=== PATIENT | male | born 1935 | race Caucasian/White ===

== ENCOUNTER → 2019-02-17 07:38 | Outpatient (CLI) | payer MEDICARE, OTHER, SELFPAY ==
--- NOTE | 2019-02-17 | DI.MRI.S_ITS ---
PROCEDURE: MR ABDOMEN WO/W CON INDICATIONS: Cyst or partial solid mass top left kidney TECHNIQUE: Coronal HASTE through abdomen and pelvis; axial 2D FLASH in- and [id number] (with and without fat saturation), and breath-hold T2 FSE from the hepatic dome to the bottom of the kidneys. Coronal HASTE MR urogram of kidneys and bladder. Dynamic coronal VIBE during IV gadolinium administration; postgadolinium axial VIBE or 2D FLASH with fat saturation from the hepatic dome through the kidneys. COMPARISON: None. FINDINGS: Image quality: Excellent. Genitourinary system: Bilateral hydronephrosis and hydroureter extending below the imaging margin into the pelvis. Note is made of a exophytic simple cyst at the upper anterolateral renal cortical border, measuring up to 2.9 cm in maximal dimension. Other solid organs: Normal. Nodes and vessels: No abnormality seen. Bowel and peritoneum: Normal. Lung bases: Normal. Bones and soft tissues: Normal. IMPRESSION: The 2.9 cm diameter cyst exophytic from the upper outer left renal cortical border is simple. No followup recommended. Bilateral hydronephrosis and hydroureter is present in this patient, etiology uncertain. The imaging field of view terminates at the abdomen/pelvis region, and hydroureter extends below into the pelvis. The clinical history appears to imply that additional imaging from elsewhere may be available for review. No comparison imaging is available that includes the area of current clinical concern. If possible please obtain comparison studies for additional review. If not available then additional assessment for cause of bilateral hydronephrosis and hydroureter is recommended. It Dictated by: Kiran Steve M.D. on 02/17/2019 at 13:03 Approved by: Kiran Steve M.D. on 02/17/2019 at 13:07
== END ==
PROVIDERS: Family Provider Specialist; Visit Provider Internal Medicine
DX: N28.1 Cyst of kidney, acquired (principal); N13.30 Unspecified hydronephrosis; N13.4 Hydroureter
CPT/HCPCS: 74183; A9579

== ENCOUNTER → 2019-03-12 11:51 | Outpatient (CLI) | payer MEDICARE, OTHER, SELFPAY ==
[2019-03-12 13:06] LABS: Estimated Glomerular Filt Rate 44.9 mL/min (>60)
== END ==
PROVIDERS: Family Provider Specialist; PCP Internal Medicine; Visit Provider Student in an Organized Health Care Education/Training Program
DX: Z13.220 Encounter for screening for lipoid disorders (principal); R11.2 Nausea with vomiting, unspecified; R19.4 Change in bowel habit; D72.820 Lymphocytosis (symptomatic)
CPT/HCPCS: 36415; 82565

== ENCOUNTER → 2019-03-13 12:01 | Outpatient (CLI) | payer MEDICARE, OTHER, SELFPAY ==
--- NOTE | 2019-03-13 | DI.CT.S_ITS ---
PROCEDURE: CT ABDOMEN PELVIS W CON INDICATIONS: change in bowel habits TECHNIQUE: After the administration of oral and intravenous contrast, 5 mm thick sections acquired from the diaphragms to the symphysis. 5 mm thick coronal and sagittal reformats were performed. For radiation dose reduction, the following was used: automated exposure control, adjustment of mA and/or kV according to patient size. COMPARISON: [facility], MR, MR ABDOMEN WO/W CON, 02/17/2019, 8:07. FINDINGS: Image quality: Excellent. ABDOMEN: Lung bases: Lung bases are clear. Heart size is normal. Solid organs: There is diffuse hepatic steatosis. Gallbladder demonstrates an 8mm calcification in the cystic duct/gallbladder neck. Biliary system is non-dilated. Pancreas enhances normally. Spleen is normal in size and enhancement. No adrenal nodules. There is an 8mm nonobstructing nephrolith within the inferior pole of the right kidney. There is redemonstration of a 2.9 cm oval circumscribed hypoattenuating exophytic cyst arising from the anterior left kidney as seen on comparison MRI of 02/17/19, which demonstrates attenuation characteristics measuring 30 Hounsfield units (which may represent a proteinaceous cyst). There is moderate bilateral hydronephrosis with tortuosity of the descending ureters bilaterally. Areas of hypoenhancement of the bilateral renal parenchyma are identified bilaterally. Peritoneum and bowel: The appendix cannot be definitively identified on this exam, but there are no convincing pericecal findings suggestive of acute appendicitis. Nodes and vessels: No retroperitoneal or mesenteric adenopathy. Aorta and inferior vena cava are normal in caliber. Moderate calcified and noncalcified plaque of the abdominal aorta and branch vessels. Miscellaneous: There is a subcentimeter fat-containing umbilical hernia. PELVIS: Genitourinary: There is diffuse thickening of the lateral wall which is worst along the right posterolateral bladder at the ureterovesicular junction. There is a difficult to measure approximately 3.3 cm anteroposterior by 2.5 cm transverse by 3.8 cm craniocaudal enhancing soft tissue mass with punctate calcification at the posterior right ureterovesicular junction resulting in ureteral obstruction and proximal hydroureteronephrosis. This soft tissue mass appears to extend through the bladder wall. The prostate is markedly enlarged measuring 5.7 cm transverse by 4.4 cm anteroposterior by 6.8 cm craniocaudal with multiple areas of internal enhancement (such as a 1.8 cm lesion in the anterior left inferior prostate on axial image 77 of series 2). The bilateral seminal vesicles are enlarged and tortuous with areas of heterogeneous enhancement. There appears to be involvement of the bladder trigone. There is both circumferential and eccentic mass-like wall thickening of the anus and rectum with up to 1.8 cm with up to approximately 2.0 cm of eccentric rectal wall thickening; there are areas of asymmetric contrast enhancement of the rectal wall (example image 72 of series 2). This masslike wall thickening encompasses much of the presacral space with effacement of fat planes. Miscellaneous: There are minimal fat-containing bilateral indirect inguinal hernias. Bones: Mild to moderate multilevel degenerative changes of the thoracolumbar spine. IMPRESSION: 1. 3.3 cm enhancing obstructive mass at the right ureterovesicular junction with bilateral hydroureteronephrosis, highly concerning for bladder malignancy versus metastatic disease. Diffuse bladder wall thickening which may be secondary to infiltrative malignancy versus chronic bladder outlet obstruction. Areas of hypoenhancement of the bilateral renal parenchyma may be due to pyelonephritis versus impaired vascularity secondary to hydronephrosis. 2. 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 3. Severe mass-like wall thickening of the rectum and anus with areas of asymmetric contrast-enhancing wall thickening suspicious for malignancy, possibly metastatic. 4. Nonobstructive nephrolithiasis. Findings discussed with referring provider Dr. Ashley Potts of [facility] by telephone by Dr. Montenegro at approximately 4:30 PM and again at approximately 4:50 PM on 03/13/2019. Findings discussed with referring provider Dr. Gurdeep Khan of [facility] by telephone by Dr. Montenegro at approximately 4:40pm on 03/13/2019. Dictated by: Jin Montenegro M.D. on 03/13/2019 at 15:59 Approved by: Jin Montenegro M.D. on 03/13/2019 at 16:59
== END ==
PROVIDERS: Family Provider Specialist; PCP Internal Medicine; Visit Provider Student in an Organized Health Care Education/Training Program
DX: R19.4 Change in bowel habit (principal); R11.2 Nausea with vomiting, unspecified; N28.9 Disorder of kidney and ureter, unspecified; N13.30 Unspecified hydronephrosis; N20.0 Calculus of kidney; K76.0 Fatty (change of) liver, not elsewhere classified; K42.9 Umbilical hernia without obstruction or gangrene; N40.0 Benign prostatic hyperplasia without lower urinary tract symptoms
CPT/HCPCS: 74177; Q9967

== ENCOUNTER → 2019-03-17 15:15 | Outpatient (CLI) | payer MEDICARE, OTHER, SELFPAY ==
[2019-03-17 18:17] LABS: Add Manual Diff / Slide Review NO; Basophils Absolute Auto 0 /uL (0-100); Basophils Percent Auto 0.8 % (0-2); Eosinophils Absolute Auto 100 /uL (0-450); Eosinophils Percent Auto 2.2 % (2-4); Hematocrit 31.8 % (41-53); Hemoglobin 10.8 g/dL (13.5-17.5); Lymphocytes Absolute Auto 800 /uL (1100-4500); Lymphocytes Percent Auto 14.2 % (25-40); Mean Corpuscular HGB Conc 34.1 % (30-36); Mean Corpuscular Hemoglobin 31.7 PG (26-34); Mean Corpuscular Volume 92.8 fL (80-100); Monocytes Absolute Auto 500 /uL (0-900); Monocytes Percent Auto 8.9 % (3-14); Neutrophils Absolute Auto 4100 /uL (1500-7000); Neutrophils Percent Auto 73.9 % (50-75); Platelet Count 268 X10^3/uL (150-400); Red Blood Cell Count 3.43 X10^6/uL (4.5-5.9); Red Cell Distribution Width 13.7 % (11.6-14.8); White Blood Cell Count 5.6 X10^3/uL (4.5-11.0)
[2019-03-17 18:56] LABS: Alanine Aminotransferase 13 IU/L (<50); Albumin 4.2 g/dL (3.5-5.0); Albumin Globulin Ratio 1.7 (1.0-2.8); Alkaline Phosphatase 66 U/L (38-126); Aspartate Aminotransferase 23 IU/L (17-59); BUN Creatinine Ratio 18.1 (6-22); Bilirubin Total 0.6 mg/dL (0.2-1.3); Blood Urea Nitrogen 29 mg/dL (9-20); Calcium 9.6 mg/dL (8.4-10.2); Carbon Dioxide 30 mmol/L (22-32); Chloride 97 mmol/L (98-107); Estimated Glomerular Filt Rate 41.7 mL/min (>60); Globulin 2.5 g/dL (1.7-4.1); Glucose 96 mg/dL (80-110); Potassium 4.4 mmol/L (3.4-5.1); Sodium 136 mmol/L (137-145); Total Protein 6.7 g/dL (6.3-8.2)
[2019-03-17 19:13] LABS: HEMOLYSIS < 15 (0-50)
== END ==
PROVIDERS: Family Provider Specialist; PCP Internal Medicine; Visit Provider Student in an Organized Health Care Education/Training Program
DX: R11.2 Nausea with vomiting, unspecified (principal); R19.4 Change in bowel habit; D72.820 Lymphocytosis (symptomatic); Z13.220 Encounter for screening for lipoid disorders; R93.3 Abnormal findings on diagnostic imaging of other parts of digestive tract; D64.9 Anemia, unspecified
CPT/HCPCS: 36415; 80053; 85025

== ENCOUNTER → 2019-03-23 07:42 | Outpatient (CLI) | payer MEDICARE, OTHER, SELFPAY ==
--- NOTE | 2019-03-23 | DI.MRI.S_ITS ---
PROCEDURE: MR PELIS WO/W CON INDICATIONS: Malignant neoplasm of rectum TECHNIQUE: Coronal HASTE, sagittal T2 FSE, axial T1 FSE, axial and coronal nonbreath-hold T2 FSE. Axial dynamic VIBE during administration of contrast. Post-contrast axial and coronal VIBE/2-D FLASH with fat saturation from the iliac crests to the symphysis. Optional diffusion weighted imaging and ADC may be performed. COMPARISON: [facility], MR, MR ABDOMEN WO/W CON, 02/17/2019, 8:07. [facility], CT, CT ABDOMEN PELVIS W CON, 03/13/2019, 12:57. FINDINGS: Image quality: Diagnostic with motion artifact Rectum: Morphology: Circumferential. Clock face of tumor involvement: Circumferential. Mucinous (high T2 signal): No. Craniocaudal length: 10 cm. Distance to anal verge: Approximately 2.2 cm. Distance to top of sphincter complex/anorectal junction: The mass is primarily located proximal to the anorectal junction and extends approximately 1 cm caudal to the anorectal junction, with evaluation limited in the absence of oblique sequences. Relationship to anterior peritoneal reflection: Straddles. Tumor at or below puborectalis sling: Yes. T staging: Depth of extramural invasion: There is circumferential extramural invasion extending to the mesorectal fascia. This includes confluent enhancing extramural tumor centered along the 5:00 to 9:00 positions extending to the mesorectal fascia. There is also extension beyond the mesorectal fascia bilaterally with lobulated mass lesions extending anteriorly to the urinary bladder. Extramural vascular invasion: Present. T3 tumors only: distance to mesorectal fascia (circumferential resection margin): There is bilateral tumor extension beyond the mesorectal fascia as described above with invasion of the bladder wall bilaterally. Findings are consistent with T4b disease. Pelvic organ involvement: Genitourinary: There is bilateral mass extension along the lateral margins of the mesorectal fascia anteriorly to the bladder with associated bladder wall invasion, right greater than left. This measures approximately 5.8 x 3.1 cm in transverse dimension on the right. There is associated invasion of the right ureterovesicular junction with encasement and narrowing of the distal right ureter. There is also encasement and narrowing of the distal left ureter. Bilateral hydroureter is partially visualized. No definite prostate invasion. There is heterogeneous enlargement of the transition zone in the prostate compatible with BPH. Pelvic sidewall (obturator internus, piriformis, ischiococcygeus muscles): No definite pelvic sidewall invasion. Pelvic floor (pubococcygeus, iliococcygeus, puborectalis, levator plate): There is invasion of the pelvic floor musculature. Sacrum: There is extension to the presacral space without definite bony invasion of the sacrum. Vessels (internal and external iliac arteries and veins): No definite iliac vessel invasion. Nerves (lumbosacral nerve roots): No definite lumbosacral nerve root invasion. Regional lymph nodes (mesorectal, inguinal, iliac): No inguinal or iliac lymphadenopathy by size criteria. No discrete enlarged mesorectal lymph nodes are identified but there is extensive tumor within the mesorectal fat limiting evaluation. Other bowel and peritoneum: No pathologic free pelvic fluid. More proximal colon and small bowel loops are normal in caliber. Bones: Marrow is normal in overall signal. No definite suspicious osseous lesions. IMPRESSION: 1. Circumferential rectal mass consistent with history of rectal cancer. There is extensive circumferential extramural invasion extending to and beyond the mesorectal fascia bilaterally with direct invasion of the bilateral bladder wall. 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 2. Bilateral mass invasion of the ureterovesicular junction with encasement and narrowing of the distal ureters. Bilateral hydroureter as seen on the prior studies are partially visualized. 3. No definite iliac or inguinal lymphadenopathy. Dictated by: Austen Juarez M.D. on 03/23/2019 at 16:14 Approved by: Austen Juarez M.D. on 03/23/2019 at 16:38
== END ==
PROVIDERS: PCP Internal Medicine; Referring Provider Urology; Visit Provider General Practice
DX: C20 Malignant neoplasm of rectum (principal); N32.9 Bladder disorder, unspecified; N28.9 Disorder of kidney and ureter, unspecified
CPT/HCPCS: 72197; A9579

== ENCOUNTER → 2019-04-20 11:57 | Outpatient (CLI) | payer MEDICARE, OTHER, SELFPAY ==
[2019-04-20 12:38] LABS: Add Manual Diff / Slide Review NO; Basophils Absolute Auto 0 /uL (0-100); Basophils Percent Auto 0.7 % (0-2); Eosinophils Absolute Auto 200 /uL (0-450); Eosinophils Percent Auto 3.2 % (2-4); Hematocrit 30.2 % (41-53); Hemoglobin 10.6 g/dL (13.5-17.5); Lymphocytes Absolute Auto 700 /uL (1100-4500); Lymphocytes Percent Auto 9.6 % (25-40); Mean Corpuscular HGB Conc 35.1 % (30-36); Mean Corpuscular Hemoglobin 33.2 PG (26-34); Mean Corpuscular Volume 94.6 fL (80-100); Monocytes Absolute Auto 500 /uL (0-900); Monocytes Percent Auto 6.8 % (3-14); Neutrophils Absolute Auto 5900 /uL (1500-7000); Neutrophils Percent Auto 79.7 % (50-75); Platelet Count 369 X10^3/uL (150-400); Red Blood Cell Count 3.19 X10^6/uL (4.5-5.9); Red Cell Distribution Width 14.2 % (11.6-14.8); White Blood Cell Count 7.4 X10^3/uL (4.5-11.0)
[2019-04-20 12:48] LABS: BUN Creatinine Ratio 25.5 (6-22); Blood Urea Nitrogen 28 mg/dL (9-20); Calcium 9.7 mg/dL (8.4-10.2); Carbon Dioxide 31 mmol/L (22-32); Chloride 97 mmol/L (98-107); Estimated Glomerular Filt Rate > 60.0 mL/min (>60); Glucose 135 mg/dL (80-110); HEMOLYSIS < 15 (0-50); Magnesium 2.1 mg/dL (1.6-2.3); Potassium 4.2 mmol/L (3.4-5.1); Sodium 137 mmol/L (137-145)
== END ==
PROVIDERS: Family Provider Internal Medicine; PCP Internal Medicine; Visit Provider Student in an Organized Health Care Education/Training Program
DX: C67.9 Malignant neoplasm of bladder, unspecified (principal)
CPT/HCPCS: 36415; 80048; 83735; 85025

== ENCOUNTER → 2019-06-01 16:11 | Outpatient (CLI) | payer MEDICARE, OTHER, SELFPAY ==
[2019-06-01 18:25] LABS: Add Manual Diff / Slide Review NO; Basophils Absolute Auto 100 /uL (0-100); Basophils Percent Auto 1.4 % (0-2); Eosinophils Absolute Auto 200 /uL (0-450); Hematocrit 30.5 % (41-53); Hemoglobin 10.4 g/dL (13.5-17.5); Lymphocytes Absolute Auto 1200 /uL (1100-4500); Lymphocytes Percent Auto 15.1 % (25-40); Mean Corpuscular Hemoglobin 31.2 PG (26-34); Mean Corpuscular Volume 91.8 fL (80-100); Monocytes Absolute Auto 700 /uL (0-900); Monocytes Percent Auto 9.1 % (3-14); Neutrophils Absolute Auto 5500 /uL (1500-7000); Neutrophils Percent Auto 71.4 % (50-75); Platelet Count 483 X10^3/uL (150-400); Red Blood Cell Count 3.32 X10^6/uL (4.5-5.9); Red Cell Distribution Width 13.7 % (11.6-14.8); White Blood Cell Count 7.8 X10^3/uL (4.5-11.0)
[2019-06-01 18:40] LABS: Alanine Aminotransferase 23 IU/L (<50); Albumin 3.5 g/dL (3.5-5.0); Alkaline Phosphatase 72 U/L (38-126); Aspartate Aminotransferase 22 IU/L (17-59); BUN Creatinine Ratio 28.2 (6-22); Bilirubin Total 0.2 mg/dL (0.2-1.3); Blood Urea Nitrogen 31 mg/dL (9-20); Calcium 9.3 mg/dL (8.4-10.2); Carbon Dioxide 30 mmol/L (22-32); Chloride 96 mmol/L (98-107); Estimated Glomerular Filt Rate > 60.0 mL/min (>60); Globulin 3.4 g/dL (1.7-4.1); Glucose 99 mg/dL (80-110); HEMOLYSIS < 15 (0-50); Sodium 134 mmol/L (137-145); Total Protein 6.9 g/dL (6.3-8.2)
== END ==
PROVIDERS: Family Provider Internal Medicine; PCP Internal Medicine; Visit Provider Student in an Organized Health Care Education/Training Program
DX: C76.3 Malignant neoplasm of pelvis (principal)
CPT/HCPCS: 36415; 80053; 85025

== ENCOUNTER → 2019-06-22 14:45 | Outpatient (CLI) | payer MEDICARE, OTHER, SELFPAY ==
[2019-06-22 16:33] LABS: Alanine Aminotransferase 13 IU/L (<50); Albumin Globulin Ratio 1.2 (1.0-2.8); Alkaline Phosphatase 81 U/L (38-126); Aspartate Aminotransferase 23 IU/L (17-59); BUN Creatinine Ratio 28.3 (6-22); Bilirubin Total 0.3 mg/dL (0.2-1.3); Blood Urea Nitrogen 34 mg/dL (9-20); Calcium 9.7 mg/dL (8.4-10.2); Carbon Dioxide 30 mmol/L (22-32); Chloride 99 mmol/L (98-107); Estimated Glomerular Filt Rate 58.1 mL/min (>60); Globulin 3.3 g/dL (1.7-4.1); Glucose 114 mg/dL (80-110); HEMOLYSIS < 15 (0-50); Potassium 4.6 mmol/L (3.4-5.1); Sodium 137 mmol/L (137-145); Total Protein 7.3 g/dL (6.3-8.2)
[2019-06-22 17:01] LABS: Thyroid Stimulating Hormone 1.37 uIU/mL (0.47-4.68)
[2019-06-22 17:32] LABS: Add Manual Diff / Slide Review NO; Basophils Absolute Auto 100 /uL (0-100); Basophils Percent Auto 0.9 % (0-2); Eosinophils Absolute Auto 400 /uL (0-450); Hematocrit 34.6 % (41-53); Hemoglobin 11.7 g/dL (13.5-17.5); Lymphocytes Absolute Auto 900 /uL (1100-4500); Lymphocytes Percent Auto 12.4 % (25-40); Mean Corpuscular HGB Conc 33.9 % (30-36); Mean Corpuscular Hemoglobin 31.7 PG (26-34); Mean Corpuscular Volume 93.4 fL (80-100); Monocytes Absolute Auto 600 /uL (0-900); Monocytes Percent Auto 8.2 % (3-14); Neutrophils Absolute Auto 5000 /uL (1500-7000); Neutrophils Percent Auto 72.5 % (50-75); Platelet Count 341 X10^3/uL (150-400); Red Cell Distribution Width 14.9 % (11.6-14.8); White Blood Cell Count 6.9 X10^3/uL (4.5-11.0)
== END ==
PROVIDERS: Family Provider Internal Medicine; PCP Internal Medicine; Referring Provider Student in an Organized Health Care Education/Training Program; Visit Provider Student in an Organized Health Care Education/Training Program
DX: C76.3 Malignant neoplasm of pelvis (principal)
CPT/HCPCS: 36415; 80053; 82533; 84443; 85025

== ENCOUNTER → 2019-07-09 10:44 | Outpatient (CLI) | payer MEDICARE, OTHER, SELFPAY ==
[2019-07-09 11:29] LABS: Blood Urea Nitrogen 36 mg/dL (9-20); Calcium 9.5 mg/dL (8.4-10.2); Carbon Dioxide 30 mmol/L (22-32); Chloride 101 mmol/L (98-107); Estimated Glomerular Filt Rate > 60.0 mL/min (>60); Glucose 104 mg/dL (80-110); HEMOLYSIS < 15 (0-50); Potassium 4.5 mmol/L (3.4-5.1); Sodium 137 mmol/L (137-145)
== END ==
PROVIDERS: Family Provider Internal Medicine; PCP Internal Medicine; Referring Provider Student in an Organized Health Care Education/Training Program; Visit Provider Student in an Organized Health Care Education/Training Program
DX: C67.9 Malignant neoplasm of bladder, unspecified (principal)
CPT/HCPCS: 36415; 80048

== ENCOUNTER → 2019-08-03 13:28 | Outpatient (CLI) | payer MEDICARE, OTHER, SELFPAY ==
[2019-08-03 14:23] LABS: Add Manual Diff / Slide Review NO; Basophils Absolute Auto 0 /uL (0-100); Basophils Percent Auto 0.2 % (0-2); Eosinophils Absolute Auto 100 /uL (0-450); Eosinophils Percent Auto 0.9 % (2-4); Hematocrit 37.2 % (41-53); Hemoglobin 12.5 g/dL (13.5-17.5); Lymphocytes Absolute Auto 400 /uL (1100-4500); Lymphocytes Percent Auto 4.2 % (25-40); Mean Corpuscular HGB Conc 33.5 % (30-36); Mean Corpuscular Volume 92.6 fL (80-100); Monocytes Absolute Auto 100 /uL (0-900); Monocytes Percent Auto 0.7 % (3-14); Neutrophils Absolute Auto 8900 /uL (1500-7000); Platelet Count 353 X10^3/uL (150-400); Red Blood Cell Count 4.02 X10^6/uL (4.5-5.9); Red Cell Distribution Width 14.6 % (11.6-14.8); White Blood Cell Count 9.5 X10^3/uL (4.5-11.0)
[2019-08-03 14:39] LABS: Alanine Aminotransferase 13 IU/L (<50); Albumin 4.1 g/dL (3.5-5.0); Albumin Globulin Ratio 1.2 (1.0-2.8); Alkaline Phosphatase 88 U/L (38-126); Aspartate Aminotransferase 26 IU/L (17-59); Bilirubin Total 0.5 mg/dL (0.2-1.3); Blood Urea Nitrogen 35 mg/dL (9-20); Calcium 9.8 mg/dL (8.4-10.2); Carbon Dioxide 30 mmol/L (22-32); Chloride 98 mmol/L (98-107); Estimated Glomerular Filt Rate > 60.0 mL/min (>60); Globulin 3.3 g/dL (1.7-4.1); Glucose 104 mg/dL (80-110); HEMOLYSIS < 15 (0-50); Potassium 4.6 mmol/L (3.4-5.1); Sodium 134 mmol/L (137-145); Total Protein 7.4 g/dL (6.3-8.2)
[2019-08-03 15:29] LABS: Thyroid Stimulating Hormone 0.79 uIU/mL (0.47-4.68)
== END ==
PROVIDERS: Family Provider Internal Medicine; PCP Internal Medicine; Referring Provider Student in an Organized Health Care Education/Training Program; Visit Provider Student in an Organized Health Care Education/Training Program
DX: C67.9 Malignant neoplasm of bladder, unspecified (principal); Z79.899 Other long term (current) drug therapy
CPT/HCPCS: 36415; 80053; 82533; 84443; 85025

== ENCOUNTER → 2019-08-24 12:11 | Outpatient (CLI) | payer MEDICARE, OTHER, SELFPAY ==
[2019-08-24 12:40] LABS: Add Manual Diff / Slide Review NO; Basophils Absolute Auto 0 /uL (0-100); Basophils Percent Auto 0.5 % (0-2); Eosinophils Absolute Auto 100 /uL (0-450); Eosinophils Percent Auto 1.8 % (2-4); Hematocrit 36.7 % (41-53); Hemoglobin 12.5 g/dL (13.5-17.5); Lymphocytes Absolute Auto 600 /uL (1100-4500); Lymphocytes Percent Auto 7.6 % (25-40); Mean Corpuscular Hemoglobin 31.1 PG (26-34); Mean Corpuscular Volume 91.4 fL (80-100); Monocytes Absolute Auto 500 /uL (0-900); Monocytes Percent Auto 7.5 % (3-14); Neutrophils Absolute Auto 6000 /uL (1500-7000); Neutrophils Percent Auto 82.6 % (50-75); Platelet Count 358 X10^3/uL (150-400); Red Blood Cell Count 4.01 X10^6/uL (4.5-5.9); Red Cell Distribution Width 14.3 % (11.6-14.8); White Blood Cell Count 7.3 X10^3/uL (4.5-11.0)
[2019-08-24 13:31] LABS: Alanine Aminotransferase 12 IU/L (<50); Albumin 3.8 g/dL (3.5-5.0); Albumin Globulin Ratio 1.3 (1.0-2.8); Alkaline Phosphatase 66 U/L (38-126); Aspartate Aminotransferase 24 IU/L (17-59); BUN Creatinine Ratio 34.3 (6-22); Bilirubin Total 0.4 mg/dL (0.2-1.3); Blood Urea Nitrogen 36 mg/dL (9-20); Calcium 9.8 mg/dL (8.4-10.2); Carbon Dioxide 31 mmol/L (22-32); Chloride 97 mmol/L (98-107); Estimated Glomerular Filt Rate > 60.0 mL/min (>60); Glucose 135 mg/dL (80-110); HEMOLYSIS < 15 (0-50); Sodium 135 mmol/L (137-145); Total Protein 6.8 g/dL (6.3-8.2)
[2019-08-24 14:03] LABS: Thyroid Stimulating Hormone 0.88 uIU/mL (0.47-4.68)
== END ==
PROVIDERS: Family Provider Internal Medicine; PCP Internal Medicine; Referring Provider Internal Medicine; Visit Provider Student in an Organized Health Care Education/Training Program
DX: C67.9 Malignant neoplasm of bladder, unspecified (principal); Z79.899 Other long term (current) drug therapy
CPT/HCPCS: 36415; 80053; 82533; 84443; 85025

== ENCOUNTER → 2019-09-10 11:23 | Outpatient (CLI) | payer MEDICARE, OTHER, SELFPAY ==
[2019-09-10 12:16] LABS: BUN Creatinine Ratio 35.1 (6-22); Blood Urea Nitrogen 40 mg/dL (9-20); Calcium 9.5 mg/dL (8.4-10.2); Carbon Dioxide 30 mmol/L (22-32); Chloride 99 mmol/L (98-107); Estimated Glomerular Filt Rate > 60.0 mL/min (>60); Glucose 102 mg/dL (80-110); HEMOLYSIS < 15 (0-50); Potassium 4.7 mmol/L (3.4-5.1); Sodium 135 mmol/L (137-145)
== END ==
PROVIDERS: Family Provider Internal Medicine; PCP Internal Medicine; Referring Provider Student in an Organized Health Care Education/Training Program; Visit Provider Student in an Organized Health Care Education/Training Program
DX: C67.9 Malignant neoplasm of bladder, unspecified (principal)
CPT/HCPCS: 36415; 80048

== ENCOUNTER → 2019-09-24 08:55 | Outpatient (CLI) | payer MEDICARE, OTHER, SELFPAY ==
[2019-09-24 10:18] LABS: Add Manual Diff / Slide Review NO; Basophils Absolute Auto 100 /uL (0-100); Basophils Percent Auto 0.7 % (0-2); Eosinophils Absolute Auto 300 /uL (0-450); Eosinophils Percent Auto 3.7 % (2-4); Hematocrit 34.9 % (41-53); Hemoglobin 11.8 g/dL (13.5-17.5); Lymphocytes Absolute Auto 500 /uL (1100-4500); Lymphocytes Percent Auto 6.4 % (25-40); Mean Corpuscular HGB Conc 33.8 % (30-36); Mean Corpuscular Volume 91.6 fL (80-100); Monocytes Absolute Auto 700 /uL (0-900); Monocytes Percent Auto 9.5 % (3-14); Neutrophils Absolute Auto 6200 /uL (1500-7000); Neutrophils Percent Auto 79.7 % (50-75); Platelet Count 340 X10^3/uL (150-400); Red Blood Cell Count 3.81 X10^6/uL (4.5-5.9); Red Cell Distribution Width 14.7 % (11.6-14.8); White Blood Cell Count 7.8 X10^3/uL (4.5-11.0)
[2019-09-24 11:12] LABS: Alanine Aminotransferase 12 IU/L (<50); Albumin 3.7 g/dL (3.5-5.0); Albumin Globulin Ratio 1.2 (1.0-2.8); Alkaline Phosphatase 60 U/L (38-126); Aspartate Aminotransferase 27 IU/L (17-59); BUN Creatinine Ratio 28.6 (6-22); Bilirubin Total 0.3 mg/dL (0.2-1.3); Blood Urea Nitrogen 30 mg/dL (9-20); Calcium 9.7 mg/dL (8.4-10.2); Carbon Dioxide 31 mmol/L (22-32); Chloride 97 mmol/L (98-107); Estimated Glomerular Filt Rate > 60.0 mL/min (>60); Globulin 3.1 g/dL (1.7-4.1); Glucose 91 mg/dL (80-110); HEMOLYSIS < 15 (0-50); Potassium 4.7 mmol/L (3.4-5.1); Sodium 133 mmol/L (137-145); Total Protein 6.8 g/dL (6.3-8.2)
== END ==
PROVIDERS: Family Provider Internal Medicine; PCP Internal Medicine; Referring Provider Student in an Organized Health Care Education/Training Program; Visit Provider Student in an Organized Health Care Education/Training Program
DX: C67.9 Malignant neoplasm of bladder, unspecified (principal)
CPT/HCPCS: 36415; 80053; 85025

== ENCOUNTER → 2019-10-01 10:20 | Outpatient (CLI) | payer MEDICARE, OTHER, SELFPAY ==
[2019-10-01 12:42] LABS: Add Manual Diff / Slide Review NO; Basophils Absolute Auto 100 /uL (0-100); Basophils Percent Auto 1.1 % (0-2); Eosinophils Absolute Auto 200 /uL (0-450); Eosinophils Percent Auto 3.2 % (2-4); Hemoglobin 11.4 g/dL (13.5-17.5); Lymphocytes Absolute Auto 600 /uL (1100-4500); Lymphocytes Percent Auto 11.9 % (25-40); Mean Corpuscular HGB Conc 33.6 % (30-36); Mean Corpuscular Hemoglobin 30.7 PG (26-34); Mean Corpuscular Volume 91.2 fL (80-100); Monocytes Absolute Auto 200 /uL (0-900); Monocytes Percent Auto 3.3 % (3-14); Neutrophils Absolute Auto 4100 /uL (1500-7000); Neutrophils Percent Auto 80.5 % (50-75); Platelet Count 344 X10^3/uL (150-400); Red Blood Cell Count 3.72 X10^6/uL (4.5-5.9); Red Cell Distribution Width 14.1 % (11.6-14.8); White Blood Cell Count 5.1 X10^3/uL (4.5-11.0)
[2019-10-01 13:22] LABS: Alanine Aminotransferase 14 IU/L (<50); Albumin Globulin Ratio 1.3 (1.0-2.8); Alkaline Phosphatase 69 U/L (38-126); Aspartate Aminotransferase 26 IU/L (17-59); BUN Creatinine Ratio 24.8 (6-22); Bilirubin Total 0.5 mg/dL (0.2-1.3); Blood Urea Nitrogen 26 mg/dL (9-20); Calcium 10.1 mg/dL (8.4-10.2); Carbon Dioxide 30 mmol/L (22-32); Chloride 97 mmol/L (98-107); Estimated Glomerular Filt Rate > 60.0 mL/min (>60); Globulin 3.1 g/dL (1.7-4.1); Glucose 100 mg/dL (80-110); HEMOLYSIS < 15 (0-50); Potassium 5.2 mmol/L (3.4-5.1); Sodium 137 mmol/L (137-145); Total Protein 7.1 g/dL (6.3-8.2)
== END ==
PROVIDERS: Family Provider Internal Medicine; PCP Internal Medicine; Referring Provider Student in an Organized Health Care Education/Training Program; Visit Provider Student in an Organized Health Care Education/Training Program
DX: C67.9 Malignant neoplasm of bladder, unspecified (principal)
CPT/HCPCS: 36415; 80053; 85025

== ENCOUNTER → 2019-10-08 09:03 | Outpatient (CLI) | payer MEDICARE, OTHER, SELFPAY ==
[2019-10-08 09:51] LABS: Add Manual Diff / Slide Review NO; Basophils Absolute Auto 0 /uL (0-100); Basophils Percent Auto 0.8 % (0-2); Eosinophils Absolute Auto 100 /uL (0-450); Eosinophils Percent Auto 3.5 % (2-4); Hematocrit 31.8 % (41-53); Hemoglobin 11.2 g/dL (13.5-17.5); Lymphocytes Absolute Auto 500 /uL (1100-4500); Lymphocytes Percent Auto 15.5 % (25-40); Mean Corpuscular HGB Conc 35.1 % (30-36); Mean Corpuscular Hemoglobin 31.7 PG (26-34); Mean Corpuscular Volume 90.3 fL (80-100); Monocytes Absolute Auto 100 /uL (0-900); Monocytes Percent Auto 3.1 % (3-14); Neutrophils Absolute Auto 2500 /uL (1500-7000); Neutrophils Percent Auto 77.1 % (50-75); Platelet Count 181 X10^3/uL (150-400); Red Blood Cell Count 3.53 X10^6/uL (4.5-5.9); Red Cell Distribution Width 13.8 % (11.6-14.8); White Blood Cell Count 3.2 X10^3/uL (4.5-11.0)
[2019-10-08 10:00] LABS: Alanine Aminotransferase 18 IU/L (<50); Albumin 4.1 g/dL (3.5-5.0); Albumin Globulin Ratio 1.3 (1.0-2.8); Alkaline Phosphatase 85 U/L (38-126); Aspartate Aminotransferase 30 IU/L (17-59); BUN Creatinine Ratio 28.8 (6-22); Bilirubin Total 0.6 mg/dL (0.2-1.3); Blood Urea Nitrogen 32 mg/dL (9-20); Calcium 9.9 mg/dL (8.4-10.2); Carbon Dioxide 26 mmol/L (22-32); Chloride 101 mmol/L (98-107); Estimated Glomerular Filt Rate > 60.0 mL/min (>60); Globulin 3.1 g/dL (1.7-4.1); Glucose 111 mg/dL (80-110); HEMOLYSIS 16 (0-50); Sodium 137 mmol/L (137-145); Total Protein 7.2 g/dL (6.3-8.2)
== END ==
PROVIDERS: Family Provider Internal Medicine; PCP Internal Medicine; Referring Provider Internal Medicine; Visit Provider Student in an Organized Health Care Education/Training Program
DX: C67.9 Malignant neoplasm of bladder, unspecified (principal)
CPT/HCPCS: 36415; 80053; 85025

== ENCOUNTER → 2019-10-22 08:20 | Outpatient (CLI) | payer MEDICARE, OTHER, SELFPAY ==
[2019-10-22 09:07] LABS: Hematocrit 29.5 % (41-53); Hemoglobin 10.3 g/dL (13.5-17.5); Mean Corpuscular HGB Conc 34.9 % (30-36); Mean Corpuscular Hemoglobin 31.7 PG (26-34); Mean Corpuscular Volume 90.7 fL (80-100); Platelet Count 386 X10^3/uL (150-400); Red Blood Cell Count 3.25 X10^6/uL (4.5-5.9); Red Cell Distribution Width 15.9 % (11.6-14.8); White Blood Cell Count 6.2 X10^3/uL (4.5-11.0)
[2019-10-22 09:08] LABS: Alanine Aminotransferase 12 IU/L (<50); Albumin 3.6 g/dL (3.5-5.0); Albumin Globulin Ratio 1.2 (1.0-2.8); Alkaline Phosphatase 84 U/L (38-126); Aspartate Aminotransferase 29 IU/L (17-59); BUN Creatinine Ratio 26.9 (6-22); Bilirubin Total 0.4 mg/dL (0.2-1.3); Blood Urea Nitrogen 29 mg/dL (9-20); Calcium 9.4 mg/dL (8.4-10.2); Carbon Dioxide 30 mmol/L (22-32); Chloride 98 mmol/L (98-107); Estimated Glomerular Filt Rate > 60.0 mL/min (>60); Globulin 3.1 g/dL (1.7-4.1); Glucose 101 mg/dL (80-110); HEMOLYSIS < 15 (0-50); Potassium 4.6 mmol/L (3.4-5.1); Sodium 134 mmol/L (137-145); Total Protein 6.7 g/dL (6.3-8.2)
[2019-10-22 09:09] LABS: Add Manual Diff / Slide Review YES
[2019-10-22 12:00] LABS: Neutrophils Absolute Manual 4340 /uL (3000-5900); RBC Morphology Normal Morphology; Total Cells Counted 100
== END ==
PROVIDERS: Family Provider Internal Medicine; PCP Internal Medicine; Referring Provider Student in an Organized Health Care Education/Training Program; Visit Provider Student in an Organized Health Care Education/Training Program
DX: C67.9 Malignant neoplasm of bladder, unspecified (principal)
CPT/HCPCS: 36415; 80053; 85025

== ENCOUNTER → 2019-10-29 09:36 | Outpatient (CLI) | payer MEDICARE, OTHER, SELFPAY ==
[2019-10-29 10:10] LABS: Add Manual Diff / Slide Review NO; Basophils Absolute Auto 100 /uL (0-100); Basophils Percent Auto 1.4 % (0-2); Eosinophils Absolute Auto 100 /uL (0-450); Eosinophils Percent Auto 2.6 % (2-4); Hematocrit 29.5 % (41-53); Hemoglobin 10.2 g/dL (13.5-17.5); Lymphocytes Absolute Auto 500 /uL (1100-4500); Lymphocytes Percent Auto 10.6 % (25-40); Mean Corpuscular HGB Conc 34.6 % (30-36); Mean Corpuscular Hemoglobin 31.3 PG (26-34); Mean Corpuscular Volume 90.5 fL (80-100); Monocytes Absolute Auto 600 /uL (0-900); Monocytes Percent Auto 11.4 % (3-14); Neutrophils Absolute Auto 3600 /uL (1500-7000); Platelet Count 773 X10^3/uL (150-400); Red Blood Cell Count 3.26 X10^6/uL (4.5-5.9); Red Cell Distribution Width 15.4 % (11.6-14.8); White Blood Cell Count 4.8 X10^3/uL (4.5-11.0)
[2019-10-29 10:28] LABS: Alanine Aminotransferase 14 IU/L (<50); Albumin 3.5 g/dL (3.5-5.0); Albumin Globulin Ratio 1.3 (1.0-2.8); Alkaline Phosphatase 89 U/L (38-126); Aspartate Aminotransferase 21 IU/L (17-59); BUN Creatinine Ratio 22.9 (6-22); Bilirubin Total 0.4 mg/dL (0.2-1.3); Blood Urea Nitrogen 24 mg/dL (9-20); Calcium 10.1 mg/dL (8.4-10.2); Carbon Dioxide 29 mmol/L (22-32); Chloride 99 mmol/L (98-107); Estimated Glomerular Filt Rate > 60.0 mL/min (>60); Globulin 2.8 g/dL (1.7-4.1); Glucose 99 mg/dL (80-110); HEMOLYSIS < 15 (0-50); Sodium 133 mmol/L (137-145); Total Protein 6.3 g/dL (6.3-8.2)
[2019-10-29 10:52] LABS: Anisocytosis 1+; Platelet Estimate Increased on smear
== END ==
PROVIDERS: Family Provider Internal Medicine; PCP Internal Medicine; Referring Provider Student in an Organized Health Care Education/Training Program; Visit Provider Student in an Organized Health Care Education/Training Program
DX: C67.9 Malignant neoplasm of bladder, unspecified (principal)
CPT/HCPCS: 36415; 80053; 85025

== ENCOUNTER → 2019-11-04 07:20 | Outpatient (CLI) | payer MEDICARE, OTHER, SELFPAY ==
[2019-11-04 08:26] LABS: Add Manual Diff / Slide Review NO; Basophils Absolute Auto 0 /uL (0-100); Basophils Percent Auto 0.6 % (0-2); Eosinophils Absolute Auto 400 /uL (0-450); Hematocrit 27.8 % (41-53); Hemoglobin 9.7 g/dL (13.5-17.5); Lymphocytes Absolute Auto 400 /uL (1100-4500); Lymphocytes Percent Auto 6.1 % (25-40); Mean Corpuscular HGB Conc 34.8 % (30-36); Mean Corpuscular Hemoglobin 31.5 PG (26-34); Mean Corpuscular Volume 90.4 fL (80-100); Monocytes Absolute Auto 200 /uL (0-900); Monocytes Percent Auto 3.1 % (3-14); Neutrophils Absolute Auto 6100 /uL (1500-7000); Neutrophils Percent Auto 85.2 % (50-75); Platelet Count 356 X10^3/uL (150-400); Red Blood Cell Count 3.08 X10^6/uL (4.5-5.9); Red Cell Distribution Width 15.7 % (11.6-14.8); White Blood Cell Count 7.2 X10^3/uL (4.5-11.0)
[2019-11-04 08:53] LABS: Alanine Aminotransferase 12 IU/L (<50); Albumin 3.5 g/dL (3.5-5.0); Albumin Globulin Ratio 1.2 (1.0-2.8); Alkaline Phosphatase 76 U/L (38-126); Aspartate Aminotransferase 17 IU/L (17-59); BUN Creatinine Ratio 25.2 (6-22); Bilirubin Total 0.4 mg/dL (0.2-1.3); Blood Urea Nitrogen 26 mg/dL (9-20); Calcium 9.3 mg/dL (8.4-10.2); Carbon Dioxide 29 mmol/L (22-32); Chloride 100 mmol/L (98-107); Estimated Glomerular Filt Rate > 60.0 mL/min (>60); Glucose 102 mg/dL (80-110); HEMOLYSIS < 15 (0-50); Potassium 4.7 mmol/L (3.4-5.1); Sodium 135 mmol/L (137-145); Total Protein 6.5 g/dL (6.3-8.2)
[2019-11-04 09:10] LABS: Cortisol Random 20.4 ug/dL
[2019-11-04 09:17] LABS: Thyroid Stimulating Hormone 1.82 uIU/mL (0.47-4.68)
== END ==
PROVIDERS: Family Provider Internal Medicine; PCP Internal Medicine; Referring Provider Student in an Organized Health Care Education/Training Program; Visit Provider Student in an Organized Health Care Education/Training Program
DX: Z51.12 Encounter for antineoplastic immunotherapy (principal); C67.9 Malignant neoplasm of bladder, unspecified; Z79.899 Other long term (current) drug therapy
CPT/HCPCS: 36415; 80053; 82533; 84443; 85025

== ENCOUNTER → 2019-11-20 09:17 | Outpatient (CLI) | payer MEDICARE, OTHER, SELFPAY ==
[2019-11-20 11:04] LABS: BUN Creatinine Ratio 25.8 (6-22); Blood Urea Nitrogen 32 mg/dL (9-20); Calcium 9.8 mg/dL (8.4-10.2); Carbon Dioxide 28 mmol/L (22-32); Chloride 98 mmol/L (98-107); Estimated Glomerular Filt Rate 55.8 mL/min (>60); Glucose 137 mg/dL (80-110); HEMOLYSIS < 15 (0-50); Potassium 5.3 mmol/L (3.4-5.1); Sodium 131 mmol/L (137-145)
== END ==
PROVIDERS: Family Provider Internal Medicine; PCP Internal Medicine; Referring Provider Student in an Organized Health Care Education/Training Program; Visit Provider Student in an Organized Health Care Education/Training Program
DX: C67.9 Malignant neoplasm of bladder, unspecified (principal)
CPT/HCPCS: 36415; 80048

== ENCOUNTER → 2019-11-24 07:29 | Outpatient (CLI) | payer MEDICARE, OTHER, SELFPAY ==
[2019-11-24 08:32] LABS: Add Manual Diff / Slide Review NO; Basophils Absolute Auto 100 /uL (0-100); Basophils Percent Auto 0.9 % (0-2); Eosinophils Absolute Auto 500 /uL (0-450); Eosinophils Percent Auto 5.8 % (2-4); Hematocrit 30.2 % (41-53); Hemoglobin 10.1 g/dL (13.5-17.5); Lymphocytes Absolute Auto 600 /uL (1100-4500); Lymphocytes Percent Auto 6.8 % (25-40); Mean Corpuscular HGB Conc 33.3 % (30-36); Mean Corpuscular Hemoglobin 30.3 PG (26-34); Mean Corpuscular Volume 90.9 fL (80-100); Monocytes Absolute Auto 1300 /uL (0-900); Monocytes Percent Auto 14.3 % (3-14); Neutrophils Absolute Auto 6400 /uL (1500-7000); Neutrophils Percent Auto 72.2 % (50-75); Platelet Count 630 X10^3/uL (150-400); Red Blood Cell Count 3.32 X10^6/uL (4.5-5.9); Red Cell Distribution Width 17.1 % (11.6-14.8); White Blood Cell Count 8.9 X10^3/uL (4.5-11.0)
[2019-11-24 08:49] LABS: Alanine Aminotransferase 12 IU/L (<50); Albumin 3.3 g/dL (3.5-5.0); Albumin Globulin Ratio 1.1 (1.0-2.8); Alkaline Phosphatase 80 U/L (38-126); Aspartate Aminotransferase 20 IU/L (17-59); BUN Creatinine Ratio 27.2 (6-22); Bilirubin Total 0.3 mg/dL (0.2-1.3); Blood Urea Nitrogen 34 mg/dL (9-20); Calcium 10.4 mg/dL (8.4-10.2); Carbon Dioxide 28 mmol/L (22-32); Chloride 99 mmol/L (98-107); Estimated Glomerular Filt Rate 55.3 mL/min (>60); Globulin 2.9 g/dL (1.7-4.1); Glucose 133 mg/dL (80-110); HEMOLYSIS < 15 (0-50); Potassium 5.3 mmol/L (3.4-5.1); Sodium 133 mmol/L (137-145); Total Protein 6.2 g/dL (6.3-8.2)
== END ==
PROVIDERS: Family Provider Internal Medicine; PCP Internal Medicine; Referring Provider Student in an Organized Health Care Education/Training Program; Visit Provider Student in an Organized Health Care Education/Training Program
DX: C67.9 Malignant neoplasm of bladder, unspecified (principal)
CPT/HCPCS: 36415; 80053; 85025

== ENCOUNTER → 2019-11-26 11:41 | Outpatient (CLI) | payer MEDICARE, OTHER, SELFPAY ==
--- NOTE | 2019-11-26 | DI.CT.S_ITS ---
PROCEDURE: CT ANGIO CHEST PE PROTOCOL INDICATIONS: Dyspnea, unspecified TECHNIQUE: After the administration of intravenous contrast, 2 mm thick sections acquired from the pulmonary apices to the posterior costophrenic angles. 3-dimensional maximum intensity projection (MIP) coronal and sagittal reformats were then acquired through the thorax. For radiation dose reduction, the following was used: automated exposure control, adjustment of mA and/or kV according to patient size. COMPARISON: [facility], CT, CT ABDOMEN PELVIS W CON, 03/13/2019, 12:57. FINDINGS: Image quality: Excellent. Pulmonary arteries: Pulmonary arteries are normal in size, and demonstrate no intraluminal filling defects to suggest central pulmonary embolism. Lungs and pleura: There is a 4 mm nodule in the left lower lobe (series 5, image 258), previously 2 mm on 03/13/2019. There is a 3 mm nodule in right middle lobe (series 5 image 160). A 5 mm intra- fissure nodule is seen in the left major fissure (series 5, image 158). Mild reticulonodular infiltrates bilaterally. [id number] emphysema. No pleural effusions or pneumothorax. Central and peripheral airways are patent. Mediastinum: Heart size is normal, without pericardial effusion. No mediastinal or hilar adenopathy. Thoracic aorta is normal in caliber and enhancement. Esophagus is normal in caliber. Small hiatal hernia. Bones and chest wall: No suspicious bony lesions. Ribs and thoracic spine appear intact throughout. Thyroid gland is normal. No axillary or supraclavicular adenopathy. Abdomen: Visualized upper abdominal solid organs appear normal in the early arterial phase of enhancement. IMPRESSION: 1. No evidence for pulmonary embolism. 2. A 4 mm nodule in the left lower lobe. This nodule has slightly enlarged since 03/13/2019. A 3 mm nodule is noted in the right middle lobe, and a 5 mm nodule is identified in the left major fissure. A short-term follow-up CT is recommended in 3 months. 3. Mild reticulonodular infiltrates bilaterally, which are likely infectious or inflammatory etiology. 4. Tukm-ih-[id number] emphysema. Dictated by: Jose Mittal M.D. on 11/26/2019 at 12:24 Approved by: Jose Mittal M.D. on 11/26/2019 at 12:33
== END ==
PROVIDERS: Family Provider Internal Medicine; PCP Internal Medicine; Referring Provider Student in an Organized Health Care Education/Training Program; Visit Provider Student in an Organized Health Care Education/Training Program
DX: R06.00 Dyspnea, unspecified (principal); R91.8 Other nonspecific abnormal finding of lung field; J43.9 Emphysema, unspecified; K44.9 Diaphragmatic hernia without obstruction or gangrene
CPT/HCPCS: 71275; Q9967

== ENCOUNTER → 2019-12-01 07:04 | Outpatient (CLI) | payer MEDICARE, OTHER, SELFPAY ==
[2019-12-01 08:31] LABS: Add Manual Diff / Slide Review NO; Basophils Absolute Auto 100 /uL (0-100); Eosinophils Absolute Auto 900 /uL (0-450); Eosinophils Percent Auto 10.3 % (2-4); Hematocrit 30.3 % (41-53); Hemoglobin 10.2 g/dL (13.5-17.5); Lymphocytes Absolute Auto 600 /uL (1100-4500); Lymphocytes Percent Auto 6.3 % (25-40); Mean Corpuscular HGB Conc 33.5 % (30-36); Mean Corpuscular Hemoglobin 30.3 PG (26-34); Mean Corpuscular Volume 90.4 fL (80-100); Monocytes Absolute Auto 1100 /uL (0-900); Monocytes Percent Auto 12.9 % (3-14); Neutrophils Absolute Auto 6100 /uL (1500-7000); Neutrophils Percent Auto 69.5 % (50-75); Platelet Count 487 X10^3/uL (150-400); Red Blood Cell Count 3.35 X10^6/uL (4.5-5.9); White Blood Cell Count 8.9 X10^3/uL (4.5-11.0)
[2019-12-01 09:07] LABS: Alanine Aminotransferase 14 IU/L (<50); Albumin 3.4 g/dL (3.5-5.0); Albumin Globulin Ratio 1.1 (1.0-2.8); Alkaline Phosphatase 79 U/L (38-126); Aspartate Aminotransferase 23 IU/L (17-59); BUN Creatinine Ratio 25.4 (6-22); Bilirubin Total 0.3 mg/dL (0.2-1.3); Blood Urea Nitrogen 31 mg/dL (9-20); Calcium 10.3 mg/dL (8.4-10.2); Carbon Dioxide 32 mmol/L (22-32); Chloride 100 mmol/L (98-107); Estimated Glomerular Filt Rate 56.9 mL/min (>60); Glucose 95 mg/dL (80-110); HEMOLYSIS < 15 (0-50); Potassium 4.6 mmol/L (3.4-5.1); Sodium 136 mmol/L (137-145); Total Protein 6.4 g/dL (6.3-8.2)
== END ==
PROVIDERS: Family Provider Internal Medicine; PCP Internal Medicine; Referring Provider Student in an Organized Health Care Education/Training Program; Visit Provider Student in an Organized Health Care Education/Training Program
DX: C67.9 Malignant neoplasm of bladder, unspecified (principal)
CPT/HCPCS: 36415; 80053; 85025

== ENCOUNTER → 2019-12-08 07:07 | Outpatient (CLI) | payer MEDICARE, OTHER, SELFPAY ==
[2019-12-08 08:07] LABS: Add Manual Diff / Slide Review NO; Basophils Absolute Auto 100 /uL (0-100); Basophils Percent Auto 1.3 % (0-2); Eosinophils Absolute Auto 300 /uL (0-450); Hematocrit 28.8 % (41-53); Hemoglobin 9.5 g/dL (13.5-17.5); Lymphocytes Absolute Auto 600 /uL (1100-4500); Lymphocytes Percent Auto 9.4 % (25-40); Mean Corpuscular HGB Conc 32.9 % (30-36); Mean Corpuscular Hemoglobin 29.8 PG (26-34); Mean Corpuscular Volume 90.8 fL (80-100); Monocytes Absolute Auto 200 /uL (0-900); Monocytes Percent Auto 2.7 % (3-14); Neutrophils Absolute Auto 5100 /uL (1500-7000); Neutrophils Percent Auto 81.6 % (50-75); Platelet Count 342 X10^3/uL (150-400); Red Blood Cell Count 3.17 X10^6/uL (4.5-5.9); Red Cell Distribution Width 17.4 % (11.6-14.8); White Blood Cell Count 6.2 X10^3/uL (4.5-11.0)
[2019-12-08 08:22] LABS: Alanine Aminotransferase 35 IU/L (<50); Albumin 3.3 g/dL (3.5-5.0); Albumin Globulin Ratio 1.2 (1.0-2.8); Alkaline Phosphatase 66 U/L (38-126); Aspartate Aminotransferase 25 IU/L (17-59); BUN Creatinine Ratio 33.9 (6-22); Bilirubin Total 0.6 mg/dL (0.2-1.3); Blood Urea Nitrogen 38 mg/dL (9-20); Calcium 9.7 mg/dL (8.4-10.2); Carbon Dioxide 27 mmol/L (22-32); Chloride 104 mmol/L (98-107); Estimated Glomerular Filt Rate > 60.0 mL/min (>60); Globulin 2.7 g/dL (1.7-4.1); Glucose 93 mg/dL (80-110); HEMOLYSIS < 15 (0-50); Potassium 4.6 mmol/L (3.4-5.1); Sodium 134 mmol/L (137-145)
== END ==
PROVIDERS: Family Provider Internal Medicine; PCP Internal Medicine; Referring Provider Student in an Organized Health Care Education/Training Program; Visit Provider Student in an Organized Health Care Education/Training Program
DX: C67.9 Malignant neoplasm of bladder, unspecified (principal)
CPT/HCPCS: 36415; 80053; 85025

== ENCOUNTER → 2019-12-15 07:07 | Outpatient (CLI) | payer MEDICARE, OTHER, SELFPAY ==
[2019-12-15 08:28] LABS: Add Manual Diff / Slide Review NO; Basophils Absolute Auto 0 /uL (0-100); Basophils Percent Auto 0.5 % (0-2); Eosinophils Absolute Auto 200 /uL (0-450); Eosinophils Percent Auto 3.9 % (2-4); Hematocrit 27.6 % (41-53); Hemoglobin 9.3 g/dL (13.5-17.5); Lymphocytes Absolute Auto 500 /uL (1100-4500); Lymphocytes Percent Auto 9.8 % (25-40); Mean Corpuscular HGB Conc 33.6 % (30-36); Mean Corpuscular Hemoglobin 30.4 PG (26-34); Mean Corpuscular Volume 90.4 fL (80-100); Monocytes Absolute Auto 100 /uL (0-900); Neutrophils Absolute Auto 3900 /uL (1500-7000); Neutrophils Percent Auto 82.8 % (50-75); Platelet Count 145 X10^3/uL (150-400); Red Blood Cell Count 3.05 X10^6/uL (4.5-5.9); Red Cell Distribution Width 17.5 % (11.6-14.8); White Blood Cell Count 4.7 X10^3/uL (4.5-11.0)
[2019-12-15 09:06] LABS: Alanine Aminotransferase 31 IU/L (<50); Albumin 3.4 g/dL (3.5-5.0); Albumin Globulin Ratio 1.2 (1.0-2.8); Alkaline Phosphatase 74 U/L (38-126); Aspartate Aminotransferase 22 IU/L (17-59); BUN Creatinine Ratio 31.1 (6-22); Bilirubin Total 0.5 mg/dL (0.2-1.3); Blood Urea Nitrogen 32 mg/dL (9-20); Carbon Dioxide 23 mmol/L (22-32); Chloride 105 mmol/L (98-107); Estimated Glomerular Filt Rate > 60.0 mL/min (>60); Globulin 2.8 g/dL (1.7-4.1); Glucose 101 mg/dL (80-110); HEMOLYSIS < 15 (0-50); Potassium 4.2 mmol/L (3.4-5.1); Sodium 134 mmol/L (137-145); Total Protein 6.2 g/dL (6.3-8.2)
== END ==
PROVIDERS: Family Provider Internal Medicine; PCP Internal Medicine; Referring Provider Student in an Organized Health Care Education/Training Program; Visit Provider Student in an Organized Health Care Education/Training Program
DX: C67.9 Malignant neoplasm of bladder, unspecified (principal)
CPT/HCPCS: 36415; 80053; 85025

== ENCOUNTER → 2019-12-29 07:04 | Outpatient (CLI) | payer MEDICARE, OTHER, SELFPAY ==
[2019-12-29 09:21] LABS: Add Manual Diff / Slide Review NO; Basophils Absolute Auto 0 /uL (0-100); Basophils Percent Auto 0.7 % (0-2); Eosinophils Absolute Auto 100 /uL (0-450); Eosinophils Percent Auto 2.6 % (2-4); Hemoglobin 10.4 g/dL (13.5-17.5); Lymphocytes Absolute Auto 400 /uL (1100-4500); Mean Corpuscular HGB Conc 33.5 % (30-36); Mean Corpuscular Hemoglobin 30.2 PG (26-34); Monocytes Absolute Auto 1000 /uL (0-900); Neutrophils Absolute Auto 4200 /uL (1500-7000); Neutrophils Percent Auto 72.7 % (50-75); Platelet Count 308 X10^3/uL (150-400); Red Blood Cell Count 3.44 X10^6/uL (4.5-5.9); Red Cell Distribution Width 18.9 % (11.6-14.8); White Blood Cell Count 5.8 X10^3/uL (4.5-11.0)
[2019-12-29 09:54] LABS: Alanine Aminotransferase 21 IU/L (<50); Albumin 3.5 g/dL (3.5-5.0); Albumin Globulin Ratio 1.3 (1.0-2.8); Alkaline Phosphatase 87 U/L (38-126); Aspartate Aminotransferase 22 IU/L (17-59); BUN Creatinine Ratio 25.2 (6-22); Bilirubin Total 0.5 mg/dL (0.2-1.3); Blood Urea Nitrogen 29 mg/dL (9-20); Carbon Dioxide 25 mmol/L (22-32); Chloride 101 mmol/L (98-107); Estimated Glomerular Filt Rate > 60.0 mL/min (>60); Globulin 2.7 g/dL (1.7-4.1); Glucose 107 mg/dL (80-110); HEMOLYSIS < 15 (0-50); Potassium 4.9 mmol/L (3.4-5.1); Sodium 133 mmol/L (137-145); Total Protein 6.2 g/dL (6.3-8.2)
== END ==
PROVIDERS: Family Provider Internal Medicine; PCP Internal Medicine; Referring Provider Student in an Organized Health Care Education/Training Program; Visit Provider Student in an Organized Health Care Education/Training Program
DX: C67.9 Malignant neoplasm of bladder, unspecified (principal)
CPT/HCPCS: 36415; 80053; 85025

== ENCOUNTER → 2020-01-01 07:31 | Outpatient (CLI) | payer MEDICARE, OTHER, SELFPAY ==
[2020-01-01 09:08] LABS: Appearance Urine UA CLOUDY; Bilirubin Urine UA NEGATIVE (NEGATIVE); Color Urine UA YELLOW; Glucose Urine UA NEGATIVE (Negative); Ketones Urine UA NEGATIVE (NEGATIVE); Leukocyte Esterase Urine UA 3+ (NEGATIVE); Nitrite Urine UA POSITIVE (Negative); Occult Blood Urine UA 3+ (Negative); Protein Urine UA 1+ (Negative); Urobilinogen Urine UA 0.2 E.U./dL (0.2)
[2020-01-01 09:13] LABS: Bacteria Urine Many (>30); Culture Indicated Urine Specimen Cultured; RBC Urine 30-100/HPF (0-5/HPF); WBC Urine >100/HPF (0-5/HPF)
== END ==
PROVIDERS: Family Provider Internal Medicine; PCP Internal Medicine; Referring Provider Student in an Organized Health Care Education/Training Program; Visit Provider Student in an Organized Health Care Education/Training Program
DX: R35.0 Frequency of micturition (principal)
CPT/HCPCS: 81001; 87077; 87086; 87186

== ENCOUNTER → 2020-01-05 07:01 | Outpatient (CLI) | payer MEDICARE, OTHER, SELFPAY ==
[2020-01-05 08:39] LABS: Add Manual Diff / Slide Review YES; Hematocrit 29.9 % (41-53); Hemoglobin 9.9 g/dL (13.5-17.5); Mean Corpuscular HGB Conc 33.1 % (30-36); Mean Corpuscular Hemoglobin 30.1 PG (26-34); Mean Corpuscular Volume 90.7 fL (80-100); Platelet Count 585 X10^3/uL (150-400); Red Cell Distribution Width 18.2 % (11.6-14.8); White Blood Cell Count 3.4 X10^3/uL (4.5-11.0)
[2020-01-05 08:43] LABS: Alanine Aminotransferase 66 IU/L (<50); Albumin 3.5 g/dL (3.5-5.0); Albumin Globulin Ratio 1.3 (1.0-2.8); Alkaline Phosphatase 81 U/L (38-126); Aspartate Aminotransferase 34 IU/L (17-59); BUN Creatinine Ratio 23.5 (6-22); Bilirubin Total 0.4 mg/dL (0.2-1.3); Blood Urea Nitrogen 31 mg/dL (9-20); Carbon Dioxide 28 mmol/L (22-32); Chloride 104 mmol/L (98-107); Estimated Glomerular Filt Rate 51.9 mL/min (>60); Globulin 2.7 g/dL (1.7-4.1); Glucose 95 mg/dL (80-110); HEMOLYSIS < 15 (0-50); Potassium 4.2 mmol/L (3.4-5.1); Sodium 137 mmol/L (137-145); Total Protein 6.2 g/dL (6.3-8.2)
[2020-01-05 09:11] LABS: Anisocytosis 1+; Neutrophils Absolute Manual 2380 /uL (3000-5900); Total Cells Counted 100
== END ==
PROVIDERS: Family Provider Internal Medicine; PCP Internal Medicine; Referring Provider Student in an Organized Health Care Education/Training Program; Visit Provider Student in an Organized Health Care Education/Training Program
DX: C67.9 Malignant neoplasm of bladder, unspecified (principal)
CPT/HCPCS: 36415; 80053; 85025

== ENCOUNTER → 2020-01-12 07:11 | Outpatient (CLI) | payer MEDICARE, OTHER, SELFPAY ==
[2020-01-12 08:51] LABS: Add Manual Diff / Slide Review NO; Basophils Absolute Auto 0 /uL (0-100); Basophils Percent Auto 0.9 % (0-2); Eosinophils Absolute Auto 100 /uL (0-450); Eosinophils Percent Auto 2.2 % (2-4); Hematocrit 31.1 % (41-53); Hemoglobin 10.3 g/dL (13.5-17.5); Lymphocytes Absolute Auto 500 /uL (1100-4500); Lymphocytes Percent Auto 12.3 % (25-40); Mean Corpuscular HGB Conc 33.2 % (30-36); Mean Corpuscular Hemoglobin 29.7 PG (26-34); Mean Corpuscular Volume 89.3 fL (80-100); Monocytes Absolute Auto 200 /uL (0-900); Monocytes Percent Auto 4.5 % (3-14); Neutrophils Absolute Auto 3600 /uL (1500-7000); Neutrophils Percent Auto 80.1 % (50-75); Platelet Count 279 X10^3/uL (150-400); Red Blood Cell Count 3.49 X10^6/uL (4.5-5.9); Red Cell Distribution Width 18.5 % (11.6-14.8); White Blood Cell Count 4.4 X10^3/uL (4.5-11.0)
[2020-01-12 09:13] LABS: Alanine Aminotransferase 39 IU/L (<50); Albumin 3.5 g/dL (3.5-5.0); Albumin Globulin Ratio 1.4 (1.0-2.8); Alkaline Phosphatase 81 U/L (38-126); Aspartate Aminotransferase 27 IU/L (17-59); BUN Creatinine Ratio 25.2 (6-22); Bilirubin Total 0.4 mg/dL (0.2-1.3); Blood Urea Nitrogen 32 mg/dL (9-20); Calcium 9.2 mg/dL (8.4-10.2); Carbon Dioxide 32 mmol/L (22-32); Chloride 100 mmol/L (98-107); Estimated Glomerular Filt Rate 54.3 mL/min (>60); Globulin 2.5 g/dL (1.7-4.1); Glucose 95 mg/dL (80-110); HEMOLYSIS < 15 (0-50); Potassium 5.2 mmol/L (3.4-5.1); Sodium 135 mmol/L (137-145)
== END ==
PROVIDERS: Family Provider Internal Medicine; PCP Internal Medicine; Referring Provider Student in an Organized Health Care Education/Training Program; Visit Provider Student in an Organized Health Care Education/Training Program
DX: C67.9 Malignant neoplasm of bladder, unspecified (principal)
CPT/HCPCS: 36415; 80053; 85025

== ENCOUNTER → 2020-01-16 12:18 | Outpatient (ROUT) | payer MEDICARE, OTHER, SELFPAY ==
[2020-01-18 11:50] LABS: COVID19 Sendout Not Detected (Not Detect)
== END ==
PROVIDERS: Family Provider Internal Medicine; PCP Internal Medicine; Visit Provider Nurse Practitioner
DX: Z11.59 Encounter for screening for other viral diseases (principal)
CPT/HCPCS: 87635

== ENCOUNTER → 2020-01-22 07:03 | Outpatient (CLI) | payer MEDICARE, OTHER, SELFPAY ==
[2020-01-22 07:34] LABS: BUN Creatinine Ratio 28.2 (6-22); Blood Urea Nitrogen 33 mg/dL (9-20); Calcium 9.3 mg/dL (8.4-10.2); Carbon Dioxide 30 mmol/L (22-32); Chloride 103 mmol/L (98-107); Estimated Glomerular Filt Rate 59.7 mL/min (>60); Glucose 118 mg/dL (80-110); HEMOLYSIS < 15 (0-50); Potassium 4.4 mmol/L (3.4-5.1); Sodium 137 mmol/L (137-145)
== END ==
PROVIDERS: Family Provider Internal Medicine; PCP Internal Medicine; Referring Provider Student in an Organized Health Care Education/Training Program; Visit Provider Student in an Organized Health Care Education/Training Program
DX: C67.9 Malignant neoplasm of bladder, unspecified (principal)
CPT/HCPCS: 36415; 80048

== ENCOUNTER → 2020-01-26 07:14 | Outpatient (CLI) | payer MEDICARE, OTHER, SELFPAY ==
[2020-01-26 08:57] LABS: Add Manual Diff / Slide Review NO; Basophils Absolute Auto 100 /uL (0-100); Eosinophils Absolute Auto 300 /uL (0-450); Eosinophils Percent Auto 3.7 % (2-4); Hematocrit 31.9 % (41-53); Hemoglobin 10.5 g/dL (13.5-17.5); Lymphocytes Absolute Auto 700 /uL (1100-4500); Lymphocytes Percent Auto 10.5 % (25-40); Mean Corpuscular Hemoglobin 29.6 PG (26-34); Mean Corpuscular Volume 89.9 fL (80-100); Monocytes Absolute Auto 900 /uL (0-900); Monocytes Percent Auto 13.3 % (3-14); Neutrophils Absolute Auto 5000 /uL (1500-7000); Neutrophils Percent Auto 71.5 % (50-75); Platelet Count 319 X10^3/uL (150-400); Red Blood Cell Count 3.55 X10^6/uL (4.5-5.9); Red Cell Distribution Width 19.8 % (11.6-14.8); White Blood Cell Count 7.1 X10^3/uL (4.5-11.0)
[2020-01-26 09:21] LABS: Alanine Aminotransferase 15 IU/L (<50); Albumin 3.4 g/dL (3.5-5.0); Albumin Globulin Ratio 1.3 (1.0-2.8); Alkaline Phosphatase 86 U/L (38-126); Aspartate Aminotransferase 20 IU/L (17-59); BUN Creatinine Ratio 26.9 (6-22); Bilirubin Total 0.4 mg/dL (0.2-1.3); Blood Urea Nitrogen 32 mg/dL (9-20); Calcium 9.3 mg/dL (8.4-10.2); Carbon Dioxide 30 mmol/L (22-32); Chloride 103 mmol/L (98-107); Estimated Glomerular Filt Rate 58.5 mL/min (>60); Globulin 2.6 g/dL (1.7-4.1); Glucose 89 mg/dL (80-110); HEMOLYSIS < 15 (0-50); Sodium 136 mmol/L (137-145)
== END ==
PROVIDERS: Family Provider Internal Medicine; PCP Internal Medicine; Referring Provider Student in an Organized Health Care Education/Training Program; Visit Provider Student in an Organized Health Care Education/Training Program
DX: C67.9 Malignant neoplasm of bladder, unspecified (principal)
CPT/HCPCS: 36415; 80053; 85025

== ENCOUNTER → 2020-02-01 06:49 | Outpatient (CLI) | payer MEDICARE, OTHER, SELFPAY ==
--- NOTE | 2020-02-01 | DI.ECHO.S_ITS ---
[place]---------+ [facility] +---------+ : : [address] : : : : [id number] : : : : Phone: [phone] Echocardiogram Report + + :Name: SALVADOR MATTSON Study Date: 02/01/2020 Height: 69 in : :[facility] Weight: 141 lb : : Gender: Male BSA: 1.8 m2 : :: 1935 Age: 84 yrs BP: 144/63 mmHg: :Reason For Study: ATRIAL FIBRILLATION : :Ordering Physician: NATA, : :NOE Performed By: Marycruz Roman : :Referring: NOE PEACE : + + Interpretation Summary Normal left ventricle size with ejection fraction 60-65%. Mildly dilated left atrium. Mild aortic valve sclerosis. Mild mitral annular calcification. Mild mitral regurgitation. Mild to moderate tricuspid regurgitation. The right ventricular systolic pressure is estimated to be at least 48 mmHg based on an estimated right atrial pressure of 8 mm Hg. Mildly enlarged ascending aorta. Procedure: A two-dimensional transthoracic echocardiogram with color flow and Doppler was performed. The study quality was technically adequate. There is no prior echocardiogram noted for this patient. The heart rate ranged between 84-127 bpm during the study. Left Ventricle: The left ventricle is normal in size and wall thickness. The ejection fraction is estimated to be 60-65%. There are no focal wall motion abnormalities. Diastolic function could not be accurately assessed due to atrial fibrillation. Right Ventricle: The right ventricle is normal in size and function. Atria: The left atrium is mildly dilated. Right atrial size is normal. There is no Doppler evidence for an interatrial shunt. Mitral Valve: There is a flat closure plane of the the mitral valve leaflets. There is mild mitral annular calcification. There is mild mitral regurgitation. Aortic Valve: The aortic valve is trileaflet. The aortic valve opens well. There is mild aortic valve sclerosis. There is no aortic valve stenosis. No aortic regurgitation is present. Tricuspid Valve: The tricuspid valve leaflets are thickened and/or calcified, but open well. There is mild to moderate tricuspid regurgitation. The right ventricular systolic pressure is estimated to be at least 48 mmHg based on an estimated right atrial pressure of 8 mm Hg. Pulmonic Valve: The pulmonic valve is not well seen, but is grossly normal. There is mild pulmonic regurgitation. Great Vessels: The aortic root is normal size. The ascending aorta is mildly enlarged. The IVC is of normal diameter and collapses less than 50% with a sniff. This suggests a right atrial pressure of 8 mm Hg. Pericardium/ Pleura There is no pericardial effusion. There is no pleural effusion. MMode/2D Measurements & Calculations LVIDd: 4.6 cm LVOT diam: 1.9 cm LVIDs: 3.2 cm Ao root diam: 3.6 cm FS: 31.4 % asc Aorta Diam: 3.5 cm EPSS: 1.2 cm Ao Arch Diam (Prox Trans): 2.1 cm IVSd: 0.89 cm LVPWd: 1.1 cm LV alva. diameter/BSA (cm/m^2): 2.6 LV sys. diameter/BSA (cm/m^2): 1.8 LA A2 area: 21.8 cm2 RA long axis: 5.9 cm LA A4 area: 19.6 cm2 RA area: 15.7 cm2 LA length (vol): 5.5 cm RA vol: 35.6 ml LA vol: 66.4 ml RA : 20.0 ml/m2 LA vol index: 37.3 ml/m2 IVC diam: 1.9 cm RVD1 (basal): 3.8 cm TAPSE: 2.5 cm Doppler Measurements & Calculations Ao V2 max: 165.7 cm/sec LVOT Max Hamlet: 105.3 cm/sec Ao V2 mean: 107.4 cm/sec LV V1 max P.4 mmHg Ao max P.0 mmHg LV V1 VTI: 18.3 cm Ao mean P.4 mmHg ART(I,D): 1.8 cm2 Ao V2 VTI: 27.4 cm ART(V,D): 1.7 cm2 sev ratio: 0.67 ART indexed to BSA (cm^2/m^2): 1.0 MV E max hamlet: 113.0 cm/sec TR max hamlet: 317.7 cm/sec MV A max hamlet: 62.7 cm/sec TR max P.4 mmHg MV E/A: 1.8 PA V2 max: 106.5 cm/sec Med Peak E' Hamlet: 8.7 cm/sec PA V2 mean: 61.8 cm/sec E/E' med: 13.0 PA mean P.9 mmHg Lat Peak E' Hamlet: 12.3 cm/sec PA pr(Accel): 34.5 mmHg E/E' lat: 9.2 E/e' average: 11.1 MV dec time: 0.16 sec SV(LVOT): 49.9 ml Electronically signed by: Cammy ortiz [place] Physician:02/01/2020 04:38 PM
== END ==
PROVIDERS: Family Provider Internal Medicine; PCP Internal Medicine; Referring Provider Internal Medicine; Visit Provider Internal Medicine
DX: I08.3 Combined rheumatic disorders of mitral, aortic and tricuspid valves (principal); I77.89 Other specified disorders of arteries and arterioles; I48.91 Unspecified atrial fibrillation
CPT/HCPCS: 93306

== ENCOUNTER → 2020-02-02 07:02 | Outpatient (CLI) | payer MEDICARE, OTHER, SELFPAY ==
[2020-02-02 08:07] LABS: Add Manual Diff / Slide Review NO; Basophils Absolute Auto 100 /uL (0-100); Basophils Percent Auto 1.2 % (0-2); Eosinophils Absolute Auto 300 /uL (0-450); Eosinophils Percent Auto 4.8 % (2-4); Hematocrit 32.2 % (41-53); Hemoglobin 10.7 g/dL (13.5-17.5); Lymphocytes Absolute Auto 600 /uL (1100-4500); Mean Corpuscular HGB Conc 33.3 % (30-36); Mean Corpuscular Hemoglobin 29.6 PG (26-34); Mean Corpuscular Volume 88.8 fL (80-100); Monocytes Absolute Auto 300 /uL (0-900); Monocytes Percent Auto 4.4 % (3-14); Neutrophils Absolute Auto 5100 /uL (1500-7000); Neutrophils Percent Auto 79.6 % (50-75); Platelet Count 555 X10^3/uL (150-400); Red Blood Cell Count 3.63 X10^6/uL (4.5-5.9); Red Cell Distribution Width 19.7 % (11.6-14.8); White Blood Cell Count 6.4 X10^3/uL (4.5-11.0)
[2020-02-02 08:15] LABS: Alanine Aminotransferase 16 IU/L (<50); Albumin 3.7 g/dL (3.5-5.0); Albumin Globulin Ratio 1.3 (1.0-2.8); Alkaline Phosphatase 94 U/L (38-126); Aspartate Aminotransferase 18 IU/L (17-59); Bilirubin Total 0.3 mg/dL (0.2-1.3); Blood Urea Nitrogen 28 mg/dL (9-20); Calcium 9.1 mg/dL (8.4-10.2); Carbon Dioxide 29 mmol/L (22-32); Chloride 104 mmol/L (98-107); Estimated Glomerular Filt Rate 56.9 mL/min (>60); Globulin 2.8 g/dL (1.7-4.1); Glucose 115 mg/dL (80-110); HEMOLYSIS < 15 (0-50); Potassium 4.7 mmol/L (3.4-5.1); Sodium 138 mmol/L (137-145); Total Protein 6.5 g/dL (6.3-8.2)
== END ==
PROVIDERS: Family Provider Internal Medicine; PCP Internal Medicine; Referring Provider Student in an Organized Health Care Education/Training Program; Visit Provider Student in an Organized Health Care Education/Training Program
DX: C67.9 Malignant neoplasm of bladder, unspecified (principal)
CPT/HCPCS: 36415; 80053; 85025

== ENCOUNTER → 2020-02-09 07:04 | Outpatient (CLI) | payer MEDICARE, OTHER, SELFPAY ==
[2020-02-09 08:58] LABS: Add Manual Diff / Slide Review NO; Basophils Absolute Auto 0 /uL (0-100); Basophils Percent Auto 0.8 % (0-2); Eosinophils Absolute Auto 100 /uL (0-450); Eosinophils Percent Auto 1.9 % (2-4); Hematocrit 32.2 % (41-53); Hemoglobin 10.6 g/dL (13.5-17.5); Lymphocytes Absolute Auto 600 /uL (1100-4500); Lymphocytes Percent Auto 11.6 % (25-40); Mean Corpuscular Hemoglobin 29.4 PG (26-34); Monocytes Absolute Auto 200 /uL (0-900); Monocytes Percent Auto 3.2 % (3-14); Neutrophils Absolute Auto 4400 /uL (1500-7000); Neutrophils Percent Auto 82.5 % (50-75); Platelet Count 273 X10^3/uL (150-400); Red Blood Cell Count 3.62 X10^6/uL (4.5-5.9); Red Cell Distribution Width 19.6 % (11.6-14.8); White Blood Cell Count 5.3 X10^3/uL (4.5-11.0)
[2020-02-09 09:19] LABS: Alanine Aminotransferase 22 IU/L (<50); Albumin 3.8 g/dL (3.5-5.0); Albumin Globulin Ratio 1.4 (1.0-2.8); Alkaline Phosphatase 91 U/L (38-126); Aspartate Aminotransferase 22 IU/L (17-59); BUN Creatinine Ratio 23.7 (6-22); Bilirubin Total 0.6 mg/dL (0.2-1.3); Blood Urea Nitrogen 28 mg/dL (9-20); Calcium 9.1 mg/dL (8.4-10.2); Carbon Dioxide 29 mmol/L (22-32); Chloride 103 mmol/L (98-107); Estimated Glomerular Filt Rate 59.1 mL/min (>60); Globulin 2.7 g/dL (1.7-4.1); Glucose 98 mg/dL (80-110); HEMOLYSIS < 15 (0-50); Potassium 4.2 mmol/L (3.4-5.1); Sodium 137 mmol/L (137-145); Total Protein 6.5 g/dL (6.3-8.2)
[2020-02-09 09:50] LABS: Thyroid Stimulating Hormone 1.53 uIU/mL (0.47-4.68)
[2020-02-09 09:51] LABS: Cortisol AM (Before 10AM) 13.9 ug/dL (4.46-22.7)
== END ==
PROVIDERS: Family Provider Internal Medicine; PCP Internal Medicine; Referring Provider Student in an Organized Health Care Education/Training Program; Visit Provider Student in an Organized Health Care Education/Training Program
DX: C67.9 Malignant neoplasm of bladder, unspecified (principal); Z79.899 Other long term (current) drug therapy
CPT/HCPCS: 36415; 80053; 82533; 84443; 85025

== ENCOUNTER → 2020-02-23 07:05 | Outpatient (CLI) | payer MEDICARE, OTHER, SELFPAY ==
[2020-02-23 09:03] LABS: Add Manual Diff / Slide Review NO; Basophils Absolute Auto 100 /uL (0-100); Eosinophils Absolute Auto 200 /uL (0-450); Hematocrit 33.9 % (41-53); Hemoglobin 11.2 g/dL (13.5-17.5); Lymphocytes Absolute Auto 600 /uL (1100-4500); Lymphocytes Percent Auto 9.2 % (25-40); Mean Corpuscular HGB Conc 33.2 % (30-36); Mean Corpuscular Hemoglobin 29.7 PG (26-34); Mean Corpuscular Volume 89.4 fL (80-100); Monocytes Absolute Auto 1000 /uL (0-900); Monocytes Percent Auto 15.3 % (3-14); Neutrophils Absolute Auto 4400 /uL (1500-7000); Neutrophils Percent Auto 70.5 % (50-75); Platelet Count 302 X10^3/uL (150-400); Red Blood Cell Count 3.79 X10^6/uL (4.5-5.9); White Blood Cell Count 6.2 X10^3/uL (4.5-11.0)
[2020-02-23 09:19] LABS: Alanine Aminotransferase 17 IU/L (<50); Albumin 3.8 g/dL (3.5-5.0); Albumin Globulin Ratio 1.4 (1.0-2.8); Alkaline Phosphatase 104 U/L (38-126); Aspartate Aminotransferase 22 IU/L (17-59); BUN Creatinine Ratio 22.4 (6-22); Bilirubin Total 0.6 mg/dL (0.2-1.3); Blood Urea Nitrogen 26 mg/dL (9-20); Calcium 9.3 mg/dL (8.4-10.2); Carbon Dioxide 29 mmol/L (22-32); Chloride 105 mmol/L (98-107); Estimated Glomerular Filt Rate > 60.0 mL/min (>60); Globulin 2.8 g/dL (1.7-4.1); Glucose 91 mg/dL (80-110); HEMOLYSIS < 15 (0-50); Potassium 4.6 mmol/L (3.4-5.1); Sodium 138 mmol/L (137-145); Total Protein 6.6 g/dL (6.3-8.2)
== END ==
PROVIDERS: Family Provider Internal Medicine; PCP Internal Medicine; Referring Provider Student in an Organized Health Care Education/Training Program; Visit Provider Student in an Organized Health Care Education/Training Program
DX: C67.9 Malignant neoplasm of bladder, unspecified (principal)
CPT/HCPCS: 36415; 80053; 85025

== ENCOUNTER → 2020-03-01 07:03 | Outpatient (CLI) | payer MEDICARE, OTHER, SELFPAY ==
[2020-03-01 08:21] LABS: Add Manual Diff / Slide Review NO; Basophils Absolute Auto 0 /uL (0-100); Basophils Percent Auto 0.5 % (0-2); Eosinophils Absolute Auto 0 /uL (0-450); Eosinophils Percent Auto 0.5 % (2-4); Hematocrit 29.6 % (41-53); Hemoglobin 9.6 g/dL (13.5-17.5); Lymphocytes Absolute Auto 800 /uL (1100-4500); Lymphocytes Percent Auto 9.3 % (25-40); Mean Corpuscular HGB Conc 32.4 % (30-36); Mean Corpuscular Hemoglobin 29.4 PG (26-34); Mean Corpuscular Volume 90.8 fL (80-100); Monocytes Absolute Auto 200 /uL (0-900); Monocytes Percent Auto 2.3 % (3-14); Neutrophils Absolute Auto 7100 /uL (1500-7000); Neutrophils Percent Auto 87.4 % (50-75); Platelet Count 484 X10^3/uL (150-400); Red Blood Cell Count 3.26 X10^6/uL (4.5-5.9); Red Cell Distribution Width 19.8 % (11.6-14.8); White Blood Cell Count 8.1 X10^3/uL (4.5-11.0)
[2020-03-01 08:29] LABS: Alanine Aminotransferase 134 IU/L (<50); Albumin 3.8 g/dL (3.5-5.0); Albumin Globulin Ratio 1.5 (1.0-2.8); Alkaline Phosphatase 99 U/L (38-126); Aspartate Aminotransferase 75 IU/L (17-59); BUN Creatinine Ratio 36.2 (6-22); Bilirubin Total 0.5 mg/dL (0.2-1.3); Blood Urea Nitrogen 38 mg/dL (9-20); Calcium 9.6 mg/dL (8.4-10.2); Carbon Dioxide 28 mmol/L (22-32); Chloride 103 mmol/L (98-107); Estimated Glomerular Filt Rate > 60.0 mL/min (>60); Globulin 2.5 g/dL (1.7-4.1); Glucose 130 mg/dL (80-110); HEMOLYSIS < 15 (0-50); Potassium 4.8 mmol/L (3.4-5.1); Sodium 136 mmol/L (137-145); Total Protein 6.3 g/dL (6.3-8.2)
== END ==
PROVIDERS: Family Provider Internal Medicine; PCP Internal Medicine; Referring Provider Student in an Organized Health Care Education/Training Program; Visit Provider Student in an Organized Health Care Education/Training Program
DX: C67.9 Malignant neoplasm of bladder, unspecified (principal)
CPT/HCPCS: 36415; 80053; 85025

== ENCOUNTER → 2020-03-08 07:01 | Outpatient (CLI) | payer MEDICARE, OTHER, SELFPAY ==
[2020-03-08 09:35] LABS: Alanine Aminotransferase 81 IU/L (<50); Albumin 4.1 g/dL (3.5-5.0); Albumin Globulin Ratio 1.5 (1.0-2.8); Alkaline Phosphatase 97 U/L (38-126); Aspartate Aminotransferase 44 IU/L (17-59); BUN Creatinine Ratio 38.8 (6-22); Bilirubin Total 0.5 mg/dL (0.2-1.3); Blood Urea Nitrogen 40 mg/dL (9-20); Calcium 9.5 mg/dL (8.4-10.2); Carbon Dioxide 29 mmol/L (22-32); Chloride 105 mmol/L (98-107); Estimated Glomerular Filt Rate > 60.0 mL/min (>60); Globulin 2.8 g/dL (1.7-4.1); Glucose 73 mg/dL (80-110); HEMOLYSIS < 15 (0-50); Potassium 4.3 mmol/L (3.4-5.1); Sodium 138 mmol/L (137-145); Total Protein 6.9 g/dL (6.3-8.2)
[2020-03-08 09:45] LABS: Hematocrit 33.5 % (41-53); Hemoglobin 11.2 g/dL (13.5-17.5); Mean Corpuscular HGB Conc 33.5 % (30-36); Mean Corpuscular Hemoglobin 30.4 PG (26-34); Mean Corpuscular Volume 90.7 fL (80-100); Platelet Count 311 X10^3/uL (150-400); Red Blood Cell Count 3.69 X10^6/uL (4.5-5.9); Red Cell Distribution Width 19.7 % (11.6-14.8)
[2020-03-08 09:52] LABS: Add Manual Diff / Slide Review YES
[2020-03-08 10:16] LABS: Neutrophils Absolute Manual 7380 /uL (3000-5900); Total Cells Counted 100
[2020-03-08 10:17] LABS: Anisocytosis 2+
[2020-03-08 10:18] LABS: Poikilocytosis 1+
== END ==
PROVIDERS: Family Provider Internal Medicine; PCP Internal Medicine; Referring Provider Student in an Organized Health Care Education/Training Program; Visit Provider Student in an Organized Health Care Education/Training Program
DX: C67.9 Malignant neoplasm of bladder, unspecified (principal)
CPT/HCPCS: 36415; 80053; 85025

== ENCOUNTER → 2020-03-22 06:52 | Outpatient (CLI) | payer MEDICARE, OTHER, SELFPAY ==
[2020-03-22 08:31] LABS: Add Manual Diff / Slide Review NO; Basophils Absolute Auto 100 /uL (0-100); Basophils Percent Auto 1.1 % (0-2); Eosinophils Absolute Auto 300 /uL (0-450); Eosinophils Percent Auto 5.2 % (2-4); Hematocrit 32.8 % (41-53); Hemoglobin 10.8 g/dL (13.5-17.5); Lymphocytes Absolute Auto 600 /uL (1100-4500); Lymphocytes Percent Auto 9.2 % (25-40); Mean Corpuscular HGB Conc 32.9 % (30-36); Mean Corpuscular Hemoglobin 30.1 PG (26-34); Mean Corpuscular Volume 91.4 fL (80-100); Monocytes Absolute Auto 1000 /uL (0-900); Monocytes Percent Auto 15.3 % (3-14); Neutrophils Absolute Auto 4500 /uL (1500-7000); Neutrophils Percent Auto 69.2 % (50-75); Platelet Count 267 X10^3/uL (150-400); Red Blood Cell Count 3.59 X10^6/uL (4.5-5.9); Red Cell Distribution Width 20.3 % (11.6-14.8); White Blood Cell Count 6.5 X10^3/uL (4.5-11.0)
[2020-03-22 08:46] LABS: Alanine Aminotransferase 17 IU/L (<50); Albumin 3.7 g/dL (3.5-5.0); Albumin Globulin Ratio 1.4 (1.0-2.8); Alkaline Phosphatase 85 U/L (38-126); Aspartate Aminotransferase 23 IU/L (17-59); BUN Creatinine Ratio 29.3 (6-22); Bilirubin Total 0.5 mg/dL (0.2-1.3); Blood Urea Nitrogen 39 mg/dL (9-20); Calcium 8.9 mg/dL (8.4-10.2); Carbon Dioxide 29 mmol/L (22-32); Chloride 105 mmol/L (98-107); Estimated Glomerular Filt Rate 51.5 mL/min (>60); Globulin 2.7 g/dL (1.7-4.1); Glucose 95 mg/dL (80-110); HEMOLYSIS < 15 (0-50); Potassium 4.8 mmol/L (3.4-5.1); Sodium 137 mmol/L (137-145); Total Protein 6.4 g/dL (6.3-8.2)
[2020-03-22 09:28] LABS: Anisocytosis 2+
[2020-03-22 09:29] LABS: Poikilocytosis 1+
== END ==
PROVIDERS: Family Provider Internal Medicine; PCP Internal Medicine; Referring Provider Student in an Organized Health Care Education/Training Program; Visit Provider Student in an Organized Health Care Education/Training Program
DX: C67.9 Malignant neoplasm of bladder, unspecified (principal)
CPT/HCPCS: 36415; 80053; 85025

== ENCOUNTER → 2020-03-29 07:00 | Outpatient (CLI) | payer MEDICARE, OTHER, SELFPAY ==
[2020-03-29 07:38] LABS: Add Manual Diff / Slide Review NO; Basophils Absolute Auto 100 /uL (0-100); Basophils Percent Auto 1.4 % (0-2); Eosinophils Absolute Auto 200 /uL (0-450); Hematocrit 31.3 % (41-53); Hemoglobin 10.5 g/dL (13.5-17.5); Lymphocytes Absolute Auto 800 /uL (1100-4500); Lymphocytes Percent Auto 13.3 % (25-40); Mean Corpuscular HGB Conc 33.7 % (30-36); Mean Corpuscular Hemoglobin 30.6 PG (26-34); Mean Corpuscular Volume 90.8 fL (80-100); Monocytes Absolute Auto 200 /uL (0-900); Monocytes Percent Auto 3.2 % (3-14); Neutrophils Absolute Auto 4700 /uL (1500-7000); Neutrophils Percent Auto 78.1 % (50-75); Platelet Count 514 X10^3/uL (150-400); Red Blood Cell Count 3.44 X10^6/uL (4.5-5.9); Red Cell Distribution Width 19.6 % (11.6-14.8); White Blood Cell Count 6.1 X10^3/uL (4.5-11.0)
[2020-03-29 07:48] LABS: Alanine Aminotransferase 44 IU/L (<50); Albumin 3.7 g/dL (3.5-5.0); Albumin Globulin Ratio 1.3 (1.0-2.8); Alkaline Phosphatase 86 U/L (38-126); Aspartate Aminotransferase 35 IU/L (17-59); BUN Creatinine Ratio 31.9 (6-22); Bilirubin Total 0.6 mg/dL (0.2-1.3); Blood Urea Nitrogen 36 mg/dL (9-20); Calcium 9.4 mg/dL (8.4-10.2); Carbon Dioxide 30 mmol/L (22-32); Chloride 106 mmol/L (98-107); Estimated Glomerular Filt Rate > 60.0 mL/min (>60); Globulin 2.8 g/dL (1.7-4.1); Glucose 121 mg/dL (80-110); HEMOLYSIS < 15 (0-50); Potassium 4.5 mmol/L (3.4-5.1); Sodium 138 mmol/L (137-145); Total Protein 6.5 g/dL (6.3-8.2)
== END ==
PROVIDERS: Family Provider Internal Medicine; PCP Internal Medicine; Referring Provider Student in an Organized Health Care Education/Training Program; Visit Provider Student in an Organized Health Care Education/Training Program
DX: C67.9 Malignant neoplasm of bladder, unspecified (principal)
CPT/HCPCS: 36415; 80053; 85025

== ENCOUNTER → 2020-04-05 06:58 | Outpatient (CLI) | payer MEDICARE, OTHER, SELFPAY ==
[2020-04-05 08:07] LABS: Add Manual Diff / Slide Review NO; Basophils Absolute Auto 0 /uL (0-100); Basophils Percent Auto 0.6 % (0-2); Eosinophils Absolute Auto 200 /uL (0-450); Eosinophils Percent Auto 3.6 % (2-4); Hematocrit 29.5 % (41-53); Hemoglobin 9.8 g/dL (13.5-17.5); Lymphocytes Absolute Auto 500 /uL (1100-4500); Lymphocytes Percent Auto 8.6 % (25-40); Mean Corpuscular HGB Conc 33.2 % (30-36); Mean Corpuscular Hemoglobin 30.3 PG (26-34); Mean Corpuscular Volume 91.2 fL (80-100); Monocytes Absolute Auto 200 /uL (0-900); Monocytes Percent Auto 4.2 % (3-14); Neutrophils Absolute Auto 4400 /uL (1500-7000); Platelet Count 268 X10^3/uL (150-400); Red Blood Cell Count 3.23 X10^6/uL (4.5-5.9); Red Cell Distribution Width 18.8 % (11.6-14.8); White Blood Cell Count 5.3 X10^3/uL (4.5-11.0)
[2020-04-05 08:47] LABS: Alanine Aminotransferase 22 IU/L (<50); Albumin 3.5 g/dL (3.5-5.0); Albumin Globulin Ratio 1.4 (1.0-2.8); Alkaline Phosphatase 91 U/L (38-126); Aspartate Aminotransferase 22 IU/L (17-59); BUN Creatinine Ratio 25.9 (6-22); Bilirubin Total 0.5 mg/dL (0.2-1.3); Blood Urea Nitrogen 28 mg/dL (9-20); Carbon Dioxide 29 mmol/L (22-32); Chloride 104 mmol/L (98-107); Estimated Glomerular Filt Rate > 60.0 mL/min (>60); Globulin 2.5 g/dL (1.7-4.1); Glucose 95 mg/dL (80-110); HEMOLYSIS < 15 (0-50); Sodium 134 mmol/L (137-145)
== END ==
PROVIDERS: Family Provider Internal Medicine; PCP Internal Medicine; Referring Provider Student in an Organized Health Care Education/Training Program; Visit Provider Student in an Organized Health Care Education/Training Program
DX: C67.9 Malignant neoplasm of bladder, unspecified (principal)
CPT/HCPCS: 36415; 80053; 85025

== ENCOUNTER → 2020-04-08 12:37 | Outpatient (CLI) | payer MEDICARE, OTHER, SELFPAY ==
--- NOTE | 2020-04-08 | DI.RAD.S_ITS ---
PROCEDURE: XR CHEST 2V INDICATIONS: Tachycardia, unspecified TECHNIQUE: 2 views of the chest were acquired. COMPARISON: [facility], CT, CT ANGIO CHEST PE PROTOCOL, 11/26/2019, 11:50. FINDINGS: Surgical changes and devices: Right IJ chest port with tube tip projected over the lower SVC. Lungs and pleura: Lungs are clear. No pleural effusions or pneumothorax. Mediastinum: Mediastinal contours are normal. Heart size is normal. Bones and chest wall: No suspicious bony abnormalities. Soft tissues appear unremarkable. IMPRESSION: No acute cardiopulmonary disease. Dictated by: Neymar Rivers [facility] Interpreted: Kiran Steve MD on 04/08/2020 at 13:15 Approved by: Kiran Steve M.D. on 04/08/2020 at 14:01
== END ==
PROVIDERS: Family Provider Internal Medicine; PCP Internal Medicine; Referring Provider Internal Medicine Cardiovascular Disease; Visit Provider Internal Medicine Cardiovascular Disease
DX: R00.0 Tachycardia, unspecified (principal); Z95.828 Presence of other vascular implants and grafts
CPT/HCPCS: 71046

== ENCOUNTER → 2020-04-12 08:28 | Outpatient (CLI) | payer MEDICARE, OTHER, SELFPAY ==
[2020-04-12 08:53] LABS: COVID19 -Nasal RAPID Negative (Negative)
== END ==
PROVIDERS: Family Provider Internal Medicine; PCP Internal Medicine; Visit Provider Physician Assistant
DX: Z11.59 Encounter for screening for other viral diseases (principal)
CPT/HCPCS: 87635

== ENCOUNTER → 2020-04-19 07:19 | Outpatient (CLI) | payer MEDICARE, OTHER, SELFPAY ==
[2020-04-19 07:46] LABS: Add Manual Diff / Slide Review NO; Basophils Absolute Auto 100 /uL (0-100); Basophils Percent Auto 0.9 % (0-2); Eosinophils Absolute Auto 300 /uL (0-450); Eosinophils Percent Auto 5.1 % (2-4); Hematocrit 32.7 % (41-53); Hemoglobin 10.9 g/dL (13.5-17.5); Lymphocytes Absolute Auto 500 /uL (1100-4500); Lymphocytes Percent Auto 7.8 % (25-40); Mean Corpuscular HGB Conc 33.2 % (30-36); Mean Corpuscular Hemoglobin 30.1 PG (26-34); Mean Corpuscular Volume 90.6 fL (80-100); Monocytes Absolute Auto 1100 /uL (0-900); Monocytes Percent Auto 17.1 % (3-14); Neutrophils Absolute Auto 4400 /uL (1500-7000); Neutrophils Percent Auto 69.1 % (50-75); Platelet Count 322 X10^3/uL (150-400); Red Cell Distribution Width 18.4 % (11.6-14.8); White Blood Cell Count 6.4 X10^3/uL (4.5-11.0)
[2020-04-19 07:59] LABS: Alanine Aminotransferase 20 IU/L (<50); Albumin 3.5 g/dL (3.5-5.0); Albumin Globulin Ratio 1.4 (1.0-2.8); Alkaline Phosphatase 85 U/L (38-126); Aspartate Aminotransferase 24 IU/L (17-59); BUN Creatinine Ratio 20.5 (6-22); Bilirubin Total 0.6 mg/dL (0.2-1.3); Blood Urea Nitrogen 23 mg/dL (9-20); Calcium 9.4 mg/dL (8.4-10.2); Carbon Dioxide 29 mmol/L (22-32); Chloride 105 mmol/L (98-107); Estimated Glomerular Filt Rate > 60.0 mL/min (>60); Globulin 2.5 g/dL (1.7-4.1); Glucose 115 mg/dL (80-110); HEMOLYSIS < 15 (0-50); Potassium 4.9 mmol/L (3.4-5.1); Sodium 137 mmol/L (137-145)
== END ==
PROVIDERS: Family Provider Internal Medicine; PCP Internal Medicine; Referring Provider Obstetrics & Gynecology; Visit Provider Student in an Organized Health Care Education/Training Program
DX: C67.9 Malignant neoplasm of bladder, unspecified (principal)
CPT/HCPCS: 36415; 80053; 85025

== ENCOUNTER → 2020-04-26 06:57 | Outpatient (CLI) | payer MEDICARE, OTHER, SELFPAY ==
[2020-04-26 08:35] LABS: Add Manual Diff / Slide Review NO; Basophils Absolute Auto 100 /uL (0-100); Basophils Percent Auto 1.3 % (0-2); Eosinophils Absolute Auto 300 /uL (0-450); Hematocrit 28.2 % (41-53); Hemoglobin 9.5 g/dL (13.5-17.5); Lymphocytes Absolute Auto 600 /uL (1100-4500); Lymphocytes Percent Auto 9.7 % (25-40); Mean Corpuscular HGB Conc 33.8 % (30-36); Mean Corpuscular Hemoglobin 30.5 PG (26-34); Monocytes Absolute Auto 300 /uL (0-900); Monocytes Percent Auto 4.5 % (3-14); Neutrophils Absolute Auto 5200 /uL (1500-7000); Neutrophils Percent Auto 80.5 % (50-75); Platelet Count 485 X10^3/uL (150-400); Red Blood Cell Count 3.13 X10^6/uL (4.5-5.9); Red Cell Distribution Width 17.6 % (11.6-14.8); White Blood Cell Count 6.4 X10^3/uL (4.5-11.0)
[2020-04-26 09:00] LABS: Alanine Aminotransferase 22 IU/L (<50); Albumin 3.4 g/dL (3.5-5.0); Albumin Globulin Ratio 1.4 (1.0-2.8); Alkaline Phosphatase 78 U/L (38-126); Aspartate Aminotransferase 27 IU/L (17-59); BUN Creatinine Ratio 35.8 (6-22); Bilirubin Total 0.4 mg/dL (0.2-1.3); Blood Urea Nitrogen 39 mg/dL (9-20); Calcium 9.3 mg/dL (8.4-10.2); Carbon Dioxide 26 mmol/L (22-32); Chloride 106 mmol/L (98-107); Estimated Glomerular Filt Rate > 60.0 mL/min (>60); Globulin 2.4 g/dL (1.7-4.1); Glucose 95 mg/dL (80-110); HEMOLYSIS < 15 (0-50); Potassium 5.1 mmol/L (3.4-5.1); Sodium 136 mmol/L (137-145); Total Protein 5.8 g/dL (6.3-8.2)
== END ==
PROVIDERS: Family Provider Internal Medicine; PCP Internal Medicine; Referring Provider Student in an Organized Health Care Education/Training Program; Visit Provider Student in an Organized Health Care Education/Training Program
DX: C67.9 Malignant neoplasm of bladder, unspecified (principal)
CPT/HCPCS: 36415; 80053; 85025

== ENCOUNTER → 2020-05-03 09:03 | Outpatient (CLI) | payer MEDICARE, OTHER, SELFPAY ==
[2020-05-03 10:26] LABS: Add Manual Diff / Slide Review NO; Basophils Absolute Auto 0 /uL (0-100); Basophils Percent Auto 0.8 % (0-2); Eosinophils Absolute Auto 300 /uL (0-450); Hemoglobin 9.6 g/dL (13.5-17.5); Lymphocytes Absolute Auto 400 /uL (1100-4500); Lymphocytes Percent Auto 7.9 % (25-40); Mean Corpuscular Hemoglobin 30.1 PG (26-34); Mean Corpuscular Volume 91.3 fL (80-100); Monocytes Absolute Auto 300 /uL (0-900); Neutrophils Absolute Auto 4500 /uL (1500-7000); Neutrophils Percent Auto 80.3 % (50-75); Platelet Count 262 X10^3/uL (150-400); Red Blood Cell Count 3.18 X10^6/uL (4.5-5.9); Red Cell Distribution Width 17.4 % (11.6-14.8); White Blood Cell Count 5.6 X10^3/uL (4.5-11.0)
[2020-05-03 10:43] LABS: Alanine Aminotransferase 18 IU/L (<50); Albumin 3.3 g/dL (3.5-5.0); Albumin Globulin Ratio 1.2 (1.0-2.8); Alkaline Phosphatase 83 U/L (38-126); Aspartate Aminotransferase 24 IU/L (17-59); BUN Creatinine Ratio 23.9 (6-22); Bilirubin Total 0.5 mg/dL (0.2-1.3); Blood Urea Nitrogen 26 mg/dL (9-20); Carbon Dioxide 30 mmol/L (22-32); Chloride 104 mmol/L (98-107); Estimated Glomerular Filt Rate > 60.0 mL/min (>60); Globulin 2.7 g/dL (1.7-4.1); Glucose 97 mg/dL (80-110); HEMOLYSIS < 15 (0-50); Potassium 4.2 mmol/L (3.4-5.1); Sodium 135 mmol/L (137-145)
== END ==
PROVIDERS: Family Provider Internal Medicine; PCP Internal Medicine; Referring Provider Student in an Organized Health Care Education/Training Program; Visit Provider Student in an Organized Health Care Education/Training Program
DX: C67.9 Malignant neoplasm of bladder, unspecified (principal)
CPT/HCPCS: 36415; 80053; 85025

== ENCOUNTER → 2020-05-09 14:55 | Outpatient (CLI) | payer MEDICARE, OTHER, SELFPAY ==
[2020-05-09 15:41] LABS: Appearance Urine UA SL CLOUDY; Bilirubin Urine UA NEGATIVE (NEGATIVE); Color Urine UA YELLOW; Glucose Urine UA NEGATIVE (Negative); Ketones Urine UA NEGATIVE (NEGATIVE); Leukocyte Esterase Urine UA 3+ (NEGATIVE); Nitrite Urine UA POSITIVE (Negative); Occult Blood Urine UA 2+ (Negative); Protein Urine UA 1+ (Negative); Urobilinogen Urine UA 0.2 E.U./dL (0.2)
[2020-05-09 15:47] LABS: Bacteria Urine Many (>30); RBC Urine 10-30/HPF (0-5/HPF); WBC Urine 10-30/HPF (0-5/HPF)
[2020-05-09 15:48] LABS: Culture Indicated Urine Specimen Cultured
[2020-05-09 15:50] LABS: Alanine Aminotransferase 17 IU/L (<50); Albumin 3.4 g/dL (3.5-5.0); Albumin Globulin Ratio 1.3 (1.0-2.8); Alkaline Phosphatase 81 U/L (38-126); Aspartate Aminotransferase 23 IU/L (17-59); BUN Creatinine Ratio 30.7 (6-22); Bilirubin Total 0.5 mg/dL (0.2-1.3); Blood Urea Nitrogen 35 mg/dL (9-20); Carbon Dioxide 28 mmol/L (22-32); Chloride 102 mmol/L (98-107); Estimated Glomerular Filt Rate > 60.0 mL/min (>60); Globulin 2.7 g/dL (1.7-4.1); Glucose 138 mg/dL (80-110); HEMOLYSIS < 15 (0-50); Potassium 4.6 mmol/L (3.4-5.1); Sodium 133 mmol/L (137-145); Total Protein 6.1 g/dL (6.3-8.2)
== END ==
PROVIDERS: Family Provider Internal Medicine; PCP Internal Medicine; Referring Provider Urology; Visit Provider Urology
DX: Z01.812 Encounter for preprocedural laboratory examination (principal); R33.9 Retention of urine, unspecified
CPT/HCPCS: 36415; 80053; 81001; 87077; 87086; 87186

== ENCOUNTER → 2020-05-17 07:04 | Outpatient (CLI) | payer MEDICARE, OTHER, SELFPAY ==
[2020-05-17 08:16] LABS: Add Manual Diff / Slide Review NO; Basophils Absolute Auto 0 /uL (0-100); Basophils Percent Auto 0.6 % (0-2); Eosinophils Absolute Auto 400 /uL (0-450); Eosinophils Percent Auto 5.5 % (2-4); Hematocrit 30.9 % (41-53); Hemoglobin 10.3 g/dL (13.5-17.5); Lymphocytes Absolute Auto 400 /uL (1100-4500); Lymphocytes Percent Auto 5.4 % (25-40); Mean Corpuscular HGB Conc 33.4 % (30-36); Mean Corpuscular Hemoglobin 29.8 PG (26-34); Mean Corpuscular Volume 89.1 fL (80-100); Monocytes Absolute Auto 1500 /uL (0-900); Monocytes Percent Auto 19.9 % (3-14); Neutrophils Absolute Auto 5100 /uL (1500-7000); Neutrophils Percent Auto 68.6 % (50-75); Platelet Count 369 X10^3/uL (150-400); Red Blood Cell Count 3.47 X10^6/uL (4.5-5.9); Red Cell Distribution Width 18.4 % (11.6-14.8); White Blood Cell Count 7.4 X10^3/uL (4.5-11.0)
[2020-05-17 08:42] LABS: Alanine Aminotransferase 10 IU/L (<50); Albumin 3.4 g/dL (3.5-5.0); Albumin Globulin Ratio 1.5 (1.0-2.8); Alkaline Phosphatase 88 U/L (38-126); Aspartate Aminotransferase 21 IU/L (17-59); BUN Creatinine Ratio 20.5 (6-22); Bilirubin Total 0.4 mg/dL (0.2-1.3); Blood Urea Nitrogen 24 mg/dL (9-20); Calcium 9.2 mg/dL (8.4-10.2); Carbon Dioxide 28 mmol/L (22-32); Chloride 103 mmol/L (98-107); Estimated Glomerular Filt Rate 59.7 mL/min (>60); Globulin 2.3 g/dL (1.7-4.1); Glucose 106 mg/dL (80-110); HEMOLYSIS < 15 (0-50); Potassium 5.1 mmol/L (3.4-5.1); Sodium 135 mmol/L (137-145); Total Protein 5.7 g/dL (6.3-8.2)
== END ==
PROVIDERS: Family Provider Internal Medicine; PCP Internal Medicine; Referring Provider Internal Medicine; Visit Provider Student in an Organized Health Care Education/Training Program
DX: C67.9 Malignant neoplasm of bladder, unspecified (principal)
CPT/HCPCS: 36415; 80053; 85025

== ENCOUNTER → 2020-05-24 07:18 | Outpatient (CLI) | payer MEDICARE, OTHER, SELFPAY ==
[2020-05-24 08:19] LABS: Add Manual Diff / Slide Review NO; Basophils Absolute Auto 0 /uL (0-100); Basophils Percent Auto 0.3 % (0-2); Eosinophils Absolute Auto 0 /uL (0-450); Eosinophils Percent Auto 0.7 % (2-4); Hematocrit 30.3 % (41-53); Hemoglobin 10.2 g/dL (13.5-17.5); Lymphocytes Absolute Auto 400 /uL (1100-4500); Lymphocytes Percent Auto 6.3 % (25-40); Mean Corpuscular HGB Conc 33.8 % (30-36); Mean Corpuscular Hemoglobin 29.8 PG (26-34); Mean Corpuscular Volume 88.2 fL (80-100); Monocytes Absolute Auto 400 /uL (0-900); Monocytes Percent Auto 5.9 % (3-14); Neutrophils Absolute Auto 5500 /uL (1500-7000); Neutrophils Percent Auto 86.8 % (50-75); Platelet Count 662 X10^3/uL (150-400); Red Blood Cell Count 3.44 X10^6/uL (4.5-5.9); Red Cell Distribution Width 17.2 % (11.6-14.8); White Blood Cell Count 6.3 X10^3/uL (4.5-11.0)
[2020-05-24 08:47] LABS: Alanine Aminotransferase 13 IU/L (<50); Albumin 3.4 g/dL (3.5-5.0); Albumin Globulin Ratio 1.4 (1.0-2.8); Alkaline Phosphatase 83 U/L (38-126); Aspartate Aminotransferase 18 IU/L (17-59); Bilirubin Total 0.3 mg/dL (0.2-1.3); Blood Urea Nitrogen 26 mg/dL (9-20); Calcium 9.4 mg/dL (8.4-10.2); Carbon Dioxide 28 mmol/L (22-32); Chloride 103 mmol/L (98-107); Estimated Glomerular Filt Rate > 60.0 mL/min (>60); Globulin 2.5 g/dL (1.7-4.1); Glucose 90 mg/dL (80-110); HEMOLYSIS < 15 (0-50); Potassium 5.1 mmol/L (3.4-5.1); Sodium 133 mmol/L (137-145); Total Protein 5.9 g/dL (6.3-8.2)
== END ==
PROVIDERS: Family Provider Internal Medicine; PCP Internal Medicine; Referring Provider Student in an Organized Health Care Education/Training Program; Visit Provider Student in an Organized Health Care Education/Training Program
DX: C67.9 Malignant neoplasm of bladder, unspecified (principal)
CPT/HCPCS: 36415; 80053; 85025

== ENCOUNTER → 2020-05-31 07:43 | Outpatient (CLI) | payer MEDICARE, OTHER, SELFPAY ==
[2020-05-31 08:31] LABS: Add Manual Diff / Slide Review NO; Basophils Absolute Auto 0 /uL (0-100); Basophils Percent Auto 0.7 % (0-2); Eosinophils Absolute Auto 200 /uL (0-450); Eosinophils Percent Auto 4.4 % (2-4); Hematocrit 30.8 % (41-53); Lymphocytes Absolute Auto 400 /uL (1100-4500); Lymphocytes Percent Auto 7.6 % (25-40); Mean Corpuscular HGB Conc 32.4 % (30-36); Mean Corpuscular Hemoglobin 28.6 PG (26-34); Mean Corpuscular Volume 88.2 fL (80-100); Monocytes Absolute Auto 400 /uL (0-900); Monocytes Percent Auto 8.3 % (3-14); Neutrophils Absolute Auto 4100 /uL (1500-7000); Platelet Count 316 X10^3/uL (150-400); Red Cell Distribution Width 18.3 % (11.6-14.8); White Blood Cell Count 5.1 X10^3/uL (4.5-11.0)
[2020-05-31 08:40] LABS: Alanine Aminotransferase 20 IU/L (<50); Albumin 3.5 g/dL (3.5-5.0); Albumin Globulin Ratio 1.3 (1.0-2.8); Alkaline Phosphatase 78 U/L (38-126); Aspartate Aminotransferase 38 IU/L (17-59); Bilirubin Total 0.4 mg/dL (0.2-1.3); Blood Urea Nitrogen 29 mg/dL (9-20); Carbon Dioxide 31 mmol/L (22-32); Chloride 101 mmol/L (98-107); Estimated Glomerular Filt Rate > 60.0 mL/min (>60); Globulin 2.6 g/dL (1.7-4.1); Glucose 106 mg/dL (80-110); HEMOLYSIS < 15 (0-50); Potassium 4.9 mmol/L (3.4-5.1); Sodium 132 mmol/L (137-145); Total Protein 6.1 g/dL (6.3-8.2)
== END ==
PROVIDERS: Family Provider Internal Medicine; PCP Internal Medicine; Referring Provider Student in an Organized Health Care Education/Training Program; Visit Provider Student in an Organized Health Care Education/Training Program
DX: C67.9 Malignant neoplasm of bladder, unspecified (principal)
CPT/HCPCS: 36415; 80053; 85025

== ENCOUNTER → 2020-06-14 07:08 | Outpatient (CLI) | payer MEDICARE, OTHER, SELFPAY ==
[2020-06-14 08:49] LABS: Add Manual Diff / Slide Review NO; Basophils Absolute Auto 100 /uL (0-100); Eosinophils Absolute Auto 400 /uL (0-450); Eosinophils Percent Auto 4.1 % (2-4); Hemoglobin 9.9 g/dL (13.5-17.5); Lymphocytes Absolute Auto 400 /uL (1100-4500); Lymphocytes Percent Auto 4.3 % (25-40); Mean Corpuscular HGB Conc 31.9 % (30-36); Mean Corpuscular Hemoglobin 28.3 PG (26-34); Mean Corpuscular Volume 88.6 fL (80-100); Monocytes Absolute Auto 1200 /uL (0-900); Monocytes Percent Auto 14.2 % (3-14); Neutrophils Absolute Auto 6700 /uL (1500-7000); Neutrophils Percent Auto 76.4 % (50-75); Platelet Count 391 X10^3/uL (150-400); Red Cell Distribution Width 19.7 % (11.6-14.8); White Blood Cell Count 8.7 X10^3/uL (4.5-11.0)
[2020-06-14 08:58] LABS: Alanine Aminotransferase 17 IU/L (<50); Albumin 3.1 g/dL (3.5-5.0); Albumin Globulin Ratio 1.3 (1.0-2.8); Alkaline Phosphatase 81 U/L (38-126); Aspartate Aminotransferase 23 IU/L (17-59); BUN Creatinine Ratio 24.8 (6-22); Bilirubin Total 0.5 mg/dL (0.2-1.3); Blood Urea Nitrogen 30 mg/dL (9-20); Calcium 8.8 mg/dL (8.4-10.2); Carbon Dioxide 29 mmol/L (22-32); Chloride 102 mmol/L (98-107); Estimated Glomerular Filt Rate 57.4 mL/min (>60); Globulin 2.4 g/dL (1.7-4.1); Glucose 103 mg/dL (80-110); HEMOLYSIS < 15 (0-50); Potassium 4.8 mmol/L (3.4-5.1); Sodium 132 mmol/L (137-145); Total Protein 5.5 g/dL (6.3-8.2)
== END ==
PROVIDERS: Family Provider Internal Medicine; PCP Internal Medicine; Referring Provider Student in an Organized Health Care Education/Training Program; Visit Provider Student in an Organized Health Care Education/Training Program
DX: C67.9 Malignant neoplasm of bladder, unspecified (principal)
CPT/HCPCS: 36415; 80053; 85025

== ENCOUNTER 2020-06-15 14:01 | Inpatient (IN) | payer MEDICARE, OTHER, SELFPAY ==
[2020-06-15] VITALS (32 sets, daily range): BP systolic 104–130; BP diastolic 51–88; PULSE 80–142; RESP 16–36; TEMP 36.8–37; O2SAT 90–97; BMI 21.2
--- NOTE | 2020-06-15 14:18 | DI.RAD.S_ITS ---
PROCEDURE: XR CHEST 2V INDICATIONS: shortness of breath TECHNIQUE: 2 views of the chest were acquired. COMPARISON: [facility], CR, XR CHEST 2V, 04/08/2020, 13:41. FINDINGS: Surgical changes and devices: Port-A-Cath from right-sided approach extends into the distal SVC. Lungs and pleura: Lungs are abnormal, with a generalized mild pulmonary edema pattern in this patient with prior pulmonary hyperexpansion consistent with COPD. This could represent evidence of pneumonia or CHF. The heart size itself is not changed. No significant pleural effusions or pneumothorax. Mediastinum: Mediastinal contours are normal. Heart size is normal. Bones and chest wall: No suspicious bony abnormalities. Soft tissues appear unremarkable. IMPRESSION: Alveolar edema pattern bilaterally, suspect slight subpulmonic pleural effusions. Atypical pneumonia or cardiogenic pulmonary edema should be considered. This is superimposed on pre-existing pulmonary hyperexpansion consistent with COPD. Dictated by: Kiran Steve M.D. on 06/15/2020 at 15:13 Approved by: Kiran Steve M.D. on 06/15/2020 at 15:14
[2020-06-15 14:59] LABS: Add Manual Diff / Slide Review NO; Basophils Absolute Auto 100 /uL (0-100); Basophils Percent Auto 0.6 % (0-2); Eosinophils Absolute Auto 300 /uL (0-450); Eosinophils Percent Auto 2.8 % (2-4); Hematocrit 33.8 % (41-53); Hemoglobin 10.8 g/dL (13.5-17.5); Lymphocytes Absolute Auto 500 /uL (1100-4500); Lymphocytes Percent Auto 5.1 % (25-40); Mean Corpuscular HGB Conc 32.1 % (30-36); Mean Corpuscular Hemoglobin 28.3 PG (26-34); Mean Corpuscular Volume 88.2 fL (80-100); Monocytes Absolute Auto 1400 /uL (0-900); Monocytes Percent Auto 14.7 % (3-14); Neutrophils Absolute Auto 7500 /uL (1500-7000); Neutrophils Percent Auto 76.8 % (50-75); Platelet Count 478 X10^3/uL (150-400); Red Blood Cell Count 3.83 X10^6/uL (4.5-5.9); Red Cell Distribution Width 19.5 % (11.6-14.8); White Blood Cell Count 9.8 X10^3/uL (4.5-11.0)
[2020-06-15 15:05] LABS: Lactate (Lactic Acid) 1.2 mmol/L (0.7-2.1)
[2020-06-15 15:06] LABS: Alanine Aminotransferase 18 IU/L (<50); Albumin 3.6 g/dL (3.5-5.0); Albumin Globulin Ratio 1.3 (1.0-2.8); Alkaline Phosphatase 92 U/L (38-126); Aspartate Aminotransferase 27 IU/L (17-59); BUN Creatinine Ratio 25.4 (6-22); Bilirubin Total 0.6 mg/dL (0.2-1.3); Blood Urea Nitrogen 29 mg/dL (9-20); Carbon Dioxide 26 mmol/L (22-32); Chloride 101 mmol/L (98-107); Estimated Glomerular Filt Rate > 60.0 mL/min (>60); Globulin 2.7 g/dL (1.7-4.1); Glucose 101 mg/dL (80-110); HEMOLYSIS 15 (0-50); Potassium 4.6 mmol/L (3.4-5.1); Sodium 130 mmol/L (137-145); Total Protein 6.3 g/dL (6.3-8.2)
--- NOTE | 2020-06-15 15:37 | ED_ITS ---
HPI - SOB/Dyspnea General Chief Complaint: Shortness of Breath/Dyspnea Stated Complaint: thinks Plueral Effusion, sent by physician Time Seen by Provider: 06/15/20 15:37 Source: patient Mode of arrival: Ambulatory Limitations: no limitations History of Present Illness HPI Narrative: 84-year-old male comes emergency department sent from [facility] for AFib with RVR. Patient states he was there for his follow-up appointment they were discussing that they may need to switch is chemo he has had increasing shortness of breath and fatigue but found that his heart rate was in the 140s and suspect that there may be a cardiac component. He was encouraged to be admitted down there but they deferred and patient and drove him up here to be evaluated. Patient states for the past 2 months he has had increasing fatigue and shortness of breath but significantly worse the last 1-2 weeks. He denies chest pain or pressure. No syncope. He does feel lightheaded and will check his heart rate when this occurs and will sometimes be up to the 150s. He cannot feel his heart is fast but does feel lightheaded when it occurs. Denies palpitations or fluttering. Typically he will sit down drink a lot a water and his symptoms will improve. He has noted orthopnea intermittently. He denies fevers or chills. He does have occasional nausea and vomiting but describes it more as a tickle in his throat. Denies any new issues with bowel movements. He has bilateral nephrostomy tubes and a colostomy second alecia to bladder cancer that has invaded around the colon and cause stenosis. He does have a history of AFib diagnosed 10 years ago was on count Mag and did not have symptoms or issues for a very long time until a year that he has had intermittent symptoms. He did have a sleep study, an echo and Holter for 4 days showing paroxysmal atrial fibrillation. He takes metoprolol 25 mg b.i.d., fish oil and aspirin 81 mg once weekly. He follows with Dr. Dawson for cardiology in [place]. Dr. Collier at the [facility]. Related Data Home Medications Medication Instructions Recorded Confirmed ibuprofen 200 mg PO PRN #0 09/05/11 Allergies Allergy/AdvReac Type Severity Reaction Status Date / Time No Known Drug Allergies Allergy Verified 06/15/20 14:15 Review of Systems Review of Systems ROS Unobtainable: All systems reviewed & are unremarkable except as noted in HPI and below Patient History Medical History (Updated 06/15/20 @ 16:30 by Alicja Vizcarra DO) Atrial fibrillation Bladder cancer Colostomy in place Surgical History (Updated 06/15/20 @ 16:24 by Alicja Vizcarra DO) Nephrostomy status Social History Smoking Status: Unknown if ever smoked Smoking Status: Unknown if ever smoked alcohol intake frequency: holidays/special occasions only Substance Use Type: does not use Exam Narrative Exam Narrative: GENERAL: Alert and oriented x three, elderly male in mild distress. HEENT: Head normocephalic, atraumatic, EOMI, pupils reactive, face symmetric, moist mucous membranes NECK: Supple, full range of motion CARDIOVASCULAR: Tachycardic and irregularly irregular rate and rhythm without murmurs, rubs or gallops. No edema bilateral lower extremities. RESPIRATORY: Breath sounds equal bilaterally, no wheezes rhonchi, patient does have crackles bilaterally in the lower to mid bases. ABDOMEN: Soft, nontender. Normoactive bowel sounds all 4 quadrants. No guarding or rebound, rigidity, no mass : No CVA tenderness EXTREMITIES: Normal range of motion, no clubbing or edema. Neurovascularly intact NEUROLOGICAL: Cranial nerves II through XII grossly intact. Moving all extremities SKIN: Warm, dry, no petechiae, no rashes or lesions. Initial Vital Signs Initial Vital Signs: Vital Signs Temperature 98.3 F 06/15/20 14:10 Pulse Rate 142 H 06/15/20 14:10 Respiratory Rate 36 H 06/15/20 14:10 Blood Pressure 104/74 06/15/20 14:10 Pulse Oximetry 96 06/15/20 14:10 Course Orders Ordered: ED Orders 06/15/20 14:18 XR chest 2V Stat EKG-12 Lead Stat Measure peak expiratory flow ONCE RT Consult Eval and Treat Now 06/15/20 14:41 Complete Blood Count AUTO DIFF Stat Comprehensive Metabolic Panel Stat Lactate (Lactic Acid) Stat NT-proBNP (BNP-Adult 18+) Stat Partial Thromboplastin Time Stat Prothrombin Time INR Stat Troponin & CK Cardiac Panel Stat 06/15/20 15:45 Magnesium Stat 06/15/20 15:46 COVID19 Stat 06/15/20 17:36 CT angio chest PE protocol Stat 06/15/20 18:09 Troponin I Stat Discontinued Medications Diltiazem HCl (Diltiazem 5 Mg/Ml Sdv) 20 mg IV NOW ONE Stop: 06/15/20 16:12 Last Admin: 06/15/20 16:25 Dose: 20 mg Documented by: LINDSAY Furosemide (Furosemide 40 Mg/4 Ml Vial) 20 mg IV NOW ONE Stop: 06/15/20 17:31 Last Admin: 06/15/20 17:35 Dose: 20 mg Documented by: MISAEL Guaifenesin/Codeine Phosphate (Codeine/Guaifenesin Liquid 5ml Udc) 10 ml PO NOW ONE Stop: 06/15/20 16:41 Last Admin: 06/15/20 16:54 Dose: 10 ml Documented by: MISAEL Metoprolol Succinate (Metoprolol Er 25 Mg Tablet) 25 mg PO NOW ONE Stop: 06/15/20 17:37 Last Admin: 06/15/20 18:56 Dose: 25 mg Documented by: LINDSAY Consultations Consultation #1: Patient admitted for observation he has AFib RVR but fairly rate controlled occasionally pops up to the 105 range after 20 of Cardizem and his or metoprolol. Plan for observation for CHF exacerbation he is not normally on Lasix but does have elevated BNP with some pulmonary edema. CT was negative for D-dimer but patient has been requiring to 3 L while here in the department. Accepted by Dr. Gill, patient has had lasix in department. Time: 19:02 Vital Signs Vital signs: Vital Signs - 8 hr 06/15/20 14:10 06/15/20 14:12 06/15/20 14:30 Temperature 98.3 F Pulse Rate 142 H 121 H Respiratory Rate 36 H 34 H 32 H Blood Pressure 104/74 115/75 Pulse Oximetry 96 90 L 06/15/20 14:50 06/15/20 15:00 06/15/20 15:30 Temperature Pulse Rate 136 H 131 H 130 H Respiratory Rate 32 H 16 21 Blood Pressure 129/88 130/66 Pulse Oximetry 91 93 96 06/15/20 15:39 06/15/20 16:00 06/15/20 16:15 Temperature Pulse Rate 128 H 124 H 134 H Respiratory Rate 22 25 H Blood Pressure 108/80 114/72 Pulse Oximetry 92 95 94 06/15/20 16:30 06/15/20 16:35 06/15/20 16:45 Temperature Pulse Rate 96 H 92 H 84 Respiratory Rate Blood Pressure 115/62 125/59 L Pulse Oximetry 91 91 06/15/20 17:00 06/15/20 17:15 06/15/20 17:18 Temperature Pulse Rate 110 H 100 H Respiratory Rate Blood Pressure 129/58 L Pulse Oximetry 93 92 06/15/20 17:30 06/15/20 17:31 06/15/20 17:45 Temperature Pulse Rate 95 H 96 H 96 H Respiratory Rate Blood Pressure 119/51 L Pulse Oximetry 94 94 95 06/15/20 18:01 06/15/20 18:02 06/15/20 18:15 Temperature Pulse Rate 88 103 H 97 H Respiratory Rate Blood Pressure 126/60 Pulse Oximetry 93 97 96 06/15/20 18:30 06/15/20 18:45 Temperature Pulse Rate 104 H 96 H Respiratory Rate Blood Pressure 112/59 L Pulse Oximetry 96 96 MDM - SOB/Dyspnea Lab Data Attestation: I reviewed the patient's lab results. Result diagrams: 06/15/20 14:41 06/15/20 14:41 Labs: Lab Results 06/15/20 06/15/20 06/15/20 Range/Units 14:41 14:41 14:41 WBC 9.8 (4.5-11.0) X10^3/uL RBC 3.83 L (4.5-5.9) X10^6/uL Hgb 10.8 L (13.5-17.5) g/dL Hct 33.8 L (41-53) % MCV 88.2 (80-100) fL MCH 28.3 (26-34) PG MCHC 32.1 (30-36) % RDW 19.5 H (11.6-14.8) % Plt Count 478 H (150-400) X10^3/uL Neut % (Auto) 76.8 H (50-75) % Lymph % (Auto) 5.1 L (25-40) % [place] % (Auto) 14.7 H (3-14) % Eos % (Auto) 2.8 (2-4) % Baso % (Auto) 0.6 (0-2) % Neut # (Auto) 7500 H (7080-0857) /uL Lymph # (Auto) 500 L (5482-3692) /uL [place] # (Auto) 1400 H (0-900) /uL Eos # (Auto) 300 (0-450) /uL Baso # (Auto) 100 (0-100) /uL PT (10.1-12.7) SECONDS INR (0.9-1.3) APTT (26.4-36.2) SECONDS Sodium 130 L (137-145) mmol/L Potassium 4.6 (3.4-5.1) mmol/L Chloride 101 (98-107) mmol/L Carbon Dioxide 26 (22-32) mmol/L BUN 29 H (9-20) mg/dL Creatinine 1.14 (0.66-1.25) mg/dL Estimated GFR > 60.0 (>60) mL/min BUN/Creatinine Ratio 25.4 H (6-22) Glucose 101 (80-110) mg/dL Lactate 1.2 (0.7-2.1) mmol/L Calcium 9.0 (8.4-10.2) mg/dL Magnesium (1.6-2.3) mg/dL Total Bilirubin 0.6 (0.2-1.3) mg/dL AST 27 (17-59) IU/L ALT 18 (<50) IU/L Alkaline Phosphatase 92 (38-126) U/L Total Creatine Kinase (55-170) U/L CK-MB (CK-2) CK-MB (CK-2) Rel Index Troponin I (0.01-0.034) ng/mL NT-Pro-B Natriuret Pep (<450) pg/mL Total Protein 6.3 (6.3-8.2) g/dL Albumin 3.6 (3.5-5.0) g/dL Globulin 2.7 (1.7-4.1) g/dL Albumin/Globulin Ratio 1.3 (1.0-2.8) SARS-CoV-2 (PCR) (Negative) 06/15/20 06/15/20 06/15/20 Range/Units 14:41 14:41 15:45 WBC (4.5-11.0) X10^3/uL RBC (4.5-5.9) X10^6/uL Hgb (13.5-17.5) g/dL Hct (41-53) % MCV (80-100) fL MCH (26-34) PG MCHC (30-36) % RDW (11.6-14.8) % Plt Count (150-400) X10^3/uL Neut % (Auto) (50-75) % Lymph % (Auto) (25-40) % [place] % (Auto) (3-14) % Eos % (Auto) (2-4) % Baso % (Auto) (0-2) % Neut # (Auto) (7567-9318) /uL Lymph # (Auto) (2114-4438) /uL [place] # (Auto) (0-900) /uL Eos # (Auto) (0-450) /uL Baso # (Auto) (0-100) /uL PT 15.0 H (10.1-12.7) SECONDS INR 1.3 (0.9-1.3) APTT 26 L (26.4-36.2) SECONDS Sodium (137-145) mmol/L Potassium (3.4-5.1) mmol/L Chloride (98-107) mmol/L Carbon Dioxide (22-32) mmol/L BUN (9-20) mg/dL Creatinine (0.66-1.25) mg/dL Estimated GFR (>60) mL/min BUN/Creatinine Ratio (6-22) Glucose (80-110) mg/dL Lactate (0.7-2.1) mmol/L Calcium (8.4-10.2) mg/dL Magnesium 1.9 (1.6-2.3) mg/dL Total Bilirubin (0.2-1.3) mg/dL AST (17-59) IU/L ALT (<50) IU/L Alkaline Phosphatase (38-126) U/L Total Creatine Kinase 27 L (55-170) U/L CK-MB (CK-2) TNP CK-MB (CK-2) Rel Index TNP Troponin I 0.036 H (0.01-0.034) ng/mL NT-Pro-B Natriuret Pep 2700 H (<450) pg/mL Total Protein (6.3-8.2) g/dL Albumin (3.5-5.0) g/dL Globulin (1.7-4.1) g/dL Albumin/Globulin Ratio (1.0-2.8) SARS-CoV-2 (PCR) (Negative) 06/15/20 06/15/20 Range/Units 15:46 18:09 WBC (4.5-11.0) X10^3/uL RBC (4.5-5.9) X10^6/uL Hgb (13.5-17.5) g/dL Hct (41-53) % MCV (80-100) fL MCH (26-34) PG MCHC (30-36) % RDW (11.6-14.8) % Plt Count (150-400) X10^3/uL Neut % (Auto) (50-75) % Lymph % (Auto) (25-40) % [place] % (Auto) (3-14) % Eos % (Auto) (2-4) % Baso % (Auto) (0-2) % Neut # (Auto) (1579-3962) /uL Lymph # (Auto) (0100-0198) /uL [place] # (Auto) (0-900) /uL Eos # (Auto) (0-450) /uL Baso # (Auto) (0-100) /uL PT (10.1-12.7) SECONDS INR (0.9-1.3) APTT (26.4-36.2) SECONDS Sodium (137-145) mmol/L Potassium (3.4-5.1) mmol/L Chloride (98-107) mmol/L Carbon Dioxide (22-32) mmol/L BUN (9-20) mg/dL Creatinine (0.66-1.25) mg/dL Estimated GFR (>60) mL/min BUN/Creatinine Ratio (6-22) Glucose (80-110) mg/dL Lactate (0.7-2.1) mmol/L Calcium (8.4-10.2) mg/dL Magnesium (1.6-2.3) mg/dL Total Bilirubin (0.2-1.3) mg/dL AST (17-59) IU/L ALT (<50) IU/L Alkaline Phosphatase (38-126) U/L Total Creatine Kinase (55-170) U/L CK-MB (CK-2) CK-MB (CK-2) Rel Index Troponin I 0.034 (0.01-0.034) ng/mL NT-Pro-B Natriuret Pep (<450) pg/mL Total Protein (6.3-8.2) g/dL Albumin (3.5-5.0) g/dL Globulin (1.7-4.1) g/dL Albumin/Globulin Ratio (1.0-2.8) SARS-CoV-2 (PCR) Negative (Negative) Imaging Data Chest x-ray: Radiologist's Impression: [address] [id number] ReportSigned Patient: Sven Rouse LMR#: [id number]: 1935cct:[id number]/Sex: 84 / MDate of Service: 06/15/20Loc: EDAccession Number: [id number] Procedure: XR chest 2V Ordering Provider: Alicja Vizcarra D.O. PROCEDURE: XR CHEST 2V INDICATIONS: shortness of breath TECHNIQUE: 2 views of the chest were acquired. COMPARISON: [facility], , XR CHEST 2V, 04/08/2020, 13:41. FINDINGS: Surgical changes and devices: Port-A-Cath from right-sided approach extends into the distal SVC. Lungs and pleura: Lungs are abnormal, with a generalized mild pulmonary edema pattern in this patient with prior pulmonary hyperexpansion consistent with COPD. This could represent evidence of pneumonia or CHF. The heart size itself is not changed. No significant pleural effusions or pneumothorax. Mediastinum: Mediastinal contours are normal. Heart size is normal. Bones and chest wall: No suspicious bony abnormalities. Soft tissues appear unremarkable. IMPRESSION: Alveolar edema pattern bilaterally, suspect slight subpulmonic pleural effusions. Atypical pneumonia or cardiogenic pulmonary edema should be considered. This is superimposed on pre-existing pulmonary hyperexpansion consistent with COPD. Dictated by: Kiran Steve M.D. on 06/15/2020 at 15:13 Approved by: Kiran Steve M.D. on 06/15/2020 at 15:14 CT scan - chest: Radiologist's Impression: [address] [id number] Scan ReportSigned Patient: Sven Rouse LMR#: [id number]: 8Acct:[id number]/Sex: 84 / MDate of Service: 06/15/20Loc: EDAccession Number: [id number] Procedure: CT angio chest PE protocol Ordering Provider: Alicja Vizcarra D.O. PROCEDURE: CT ANGIO CHEST PE PROTOCOL INDICATIONS: concern for PE, afib rvr w/ cancer hx TECHNIQUE: After the administration of intravenous contrast, 2 mm thick sections acquired from the pulmonary apices to the posterior costophrenic angles. 3-dimensional maximum intensity projection (MIP) coronal and sagittal reformats were then acquired through the thorax. For radiation dose reduction, the following was used: automated exposure control, adjustment of mA and/or kV according to patient size. COMPARISON: [facility], CT, CT ANGIO CHEST PE PROTOCOL, 11/26/2019, 11:50. FINDINGS: Image quality: Excellent. Pulmonary arteries: Pulmonary arteries are normal in size, and demonstrate no intraluminal filling defects to suggest central pulmonary embolism. Lungs and pleura: A small airspace opacity in the anterior medial right upper lobe. Mild airspace opacity in the left lung base. Diffuse interlobular septal thickening. Accessory azygos fissure. Bibasilar hazy opacity most compatible with atelectasis. Moderate bilateral pleural effusions. No pneumothorax. Central and peripheral airways are patent. Mediastinum: Right-sided port with the catheter tip at the cavoatrial junction. Heart size is normal, without pericardial effusion. Moderate coronary artery calcifications in the LAD. No mediastinal or hilar adenopathy. Thoracic aorta is normal in caliber and enhancement. Esophagus is normal in caliber, without hiatal hernia. Bones and chest wall: No suspicious bony lesions. Ribs and thoracic spine appear intact throughout. Thyroid gland is unremarkable. No axillary or supraclavicular adenopathy. Abdomen: Calcified gallstone at the gallbladder neck. No adrenal nodule. Simple left renal cyst. Visualized upper abdominal solid organs appear normal in the early arterial phase of enhancement. IMPRESSION: 1. No pulmonary embolism. 2. Moderate bilateral pleural effusions. 3. Diffuse interlobular septal thickening. Suspect pulmonary edema. 4. A few areas of mild airspace opacity. This could be due to atelectasis or infectious/inflammatory etiology. 5. Calcified gallstone at the gallbladder neck. Dictated by: Bennie Rooney M.D. on 06/15/2020 at 18:21 Approved by: Bennie Rooney M.D. on 06/15/2020 at 18:30 ECG Data Attestation: I personally reviewed and interpreted this ECG as follows: Prior ECG tracings: available for review Interpretation: AFib RVR with rate of 124 QRS [address] change. No prior EKGs available. MDM Narrative Medical decision making narrative: Known proximal atrial fibrillation that is not fully anticoagulated as well as bladder cancer with bilateral nephrostomies and colostomy. Patient has had sounds like intermittent AFib with RVR. Was seen today and his heart rate was noted to be elevated he has increasing fatigue and shortness of breath although no chest pain or pressure. Troponin is indeterminate with no clear EKG changes other than AFib with RVR. Patient is on metoprolol 25 mg b.i.d, by his description he has not had series bleeding issues in the past but I suspect this is part of the reason why he is not more fully a nticoagulated. Chest x-ray and exam both her consistent with a CHF exacerbation this may be secondary to inappropriate squeeze. He does have an echo from January of 2020 that shows an EF of 65% with no focal wall motion or abnormalities. Patient did have a CT with contrast but not angiography which showed coronary artery calcifications, Port-A-Cath in place as well as interval development of ground-glass opacities and septal thickening involving all lobes along from predominantly lower lobes with some diffuse ground-glass opacity Um that was noted again. Patient has a moderate amount of pleural effusion. Unclear if his pleural effusion is related to his cancer of versus cardiac issues but no clear infectious changes today. Patient has had some intermittent low 80s while here. Angiography was ordered shows no PE, patient does appear to have some CHF his troponin has improved on repeat was indeterminate initially. Patient suspect that he has had being some CHF exacerbation from his intermittent AFib. He has been more rate controlled after a dose of IV Cardizem and his oral metoprolol. Plan for observation overnight as patient does not have home O2. He did have a dose of codeine for chronic throat irritation/cough. He received lasix in the ED. Discharge Plan Departure Patient Disposition: Admitted as Observation Clinical Impression: Atrial fibrillation with RVR, Bladder cancer, CHF (congestive heart failure) Admit Date/Time: 06/15/20 19:05 Admit Provider: Sajan Gill
[2020-06-15 15:57] LABS: Creatine Kinase 27 U/L (55-170)
[2020-06-15 15:58] LABS: INR 1.3 (0.9-1.3)
[2020-06-15 16:01] LABS: PTT Partial Thromboplastin Tim 26 SECONDS (26.4-36.2)
[2020-06-15 16:07] LABS: COVID19 -Nasal RAPID Negative (Negative)
[2020-06-15 16:10] LABS: NT-proBNP (BNP-Adult 18+) 2700 pg/mL (<450); Troponin I 0.036 ng/mL (0.01-0.034)
[2020-06-15 16:23] LABS: Magnesium 1.9 mg/dL (1.6-2.3)
[2020-06-15] MEDS: dilTIAZem 5 MG/ML SDV 20 MG IV (16:25)
[2020-06-15] MEDS: CODEINE/GUAIFENESIN LIQUID 5ML UDC 10 ML PO (16:54)
[2020-06-15] MEDS: FUROSEMIDE 40 MG/4 ML VIAL 20 MG IV (17:35)
--- NOTE | 2020-06-15 17:36 | DI.CT.S_ITS ---
PROCEDURE: CT ANGIO CHEST PE PROTOCOL INDICATIONS: concern for PE, afib rvr w/ cancer hx TECHNIQUE: After the administration of intravenous contrast, 2 mm thick sections acquired from the pulmonary apices to the posterior costophrenic angles. 3-dimensional maximum intensity projection (MIP) coronal and sagittal reformats were then acquired through the thorax. For radiation dose reduction, the following was used: automated exposure control, adjustment of mA and/or kV according to patient size. COMPARISON: [facility], CT, CT ANGIO CHEST PE PROTOCOL, 11/26/2019, 11:50. FINDINGS: Image quality: Excellent. Pulmonary arteries: Pulmonary arteries are normal in size, and demonstrate no intraluminal filling defects to suggest central pulmonary embolism. Lungs and pleura: A small airspace opacity in the anterior medial right upper lobe. Mild airspace opacity in the left lung base. Diffuse interlobular septal thickening. Accessory azygos fissure. Bibasilar hazy opacity most compatible with atelectasis. Moderate bilateral pleural effusions. No pneumothorax. Central and peripheral airways are patent. Mediastinum: Right-sided port with the catheter tip at the cavoatrial junction. Heart size is normal, without pericardial effusion. Moderate coronary artery calcifications in the LAD. No mediastinal or hilar adenopathy. Thoracic aorta is normal in caliber and enhancement. Esophagus is normal in caliber, without hiatal hernia. Bones and chest wall: No suspicious bony lesions. Ribs and thoracic spine appear intact throughout. Thyroid gland is unremarkable. No axillary or supraclavicular adenopathy. Abdomen: Calcified gallstone at the gallbladder neck. No adrenal nodule. Simple left renal cyst. Visualized upper abdominal solid organs appear normal in the early arterial phase of enhancement. IMPRESSION: 1. No pulmonary embolism. 2. Moderate bilateral pleural effusions. 3. Diffuse interlobular septal thickening. Suspect pulmonary edema. 4. A few areas of mild airspace opacity. This could be due to atelectasis or infectious/inflammatory etiology. 5. Calcified gallstone at the gallbladder neck. Dictated by: Bennie Rooney M.D. on 06/15/2020 at 18:21 Approved by: Bennie Rooney M.D. on 06/15/2020 at 18:30
[2020-06-15 18:46] LABS: Troponin I 0.034 ng/mL (0.01-0.034)
[2020-06-15] MEDS: METOPROLOL ER 25 MG TABLET PO (18:56)
[2020-06-16] VITALS (18 sets, daily range): BP systolic 90–144; BP diastolic 50–85; PULSE 68–137; RESP 16–20; TEMP 36.2–36.9; O2SAT 92–98
--- NOTE | 2020-06-16 02:45 | PM.HP.1 ---
History of Present Illness History of Present Illness Date Patient Seen: 06/15/20 Time Patient Seen: 20:15 Chief complaint: thinks Plueral Effusion, sent by physician Narrative: Presenting pt a 84-year-old male Sven Rouse came into the ED sent from [facility] for AFib with RVR. Patient states he was there for his follow-up appointment they were discussing that they may need to switch is chemo he has had increasing shortness of breath and fatigue but found that his heart rate was in the 140s and suspect that there may be a cardiac component. He was encouraged to be admitted down there but they deferred and patient and drove him up here to be evaluated. Patient states for the past 2 months he has had increasing fatigue and shortness of breath but significantly worse the last 1-2 weeks. He denies chest pain or pressure. No syncope. He does feel lightheaded and will check his heart rate when this occurs and will sometimes be up to the 150s. He cannot feel his heart is fast but does feel lightheaded when it occurs. Denies palpitations or fluttering. Typically he will sit down drink a lot a water and his symptoms will improve. He has noted orthopnea intermittently. He denies fevers or chills. He does have occasional nausea and vomiting but describes it more as a tickle in his throat. Denies any new issues with bowel movements. He has bilateral nephrostomy tubes and a colostomy secondary to bladder cancer that has invaded around the colon and cause stenosis. He does have a history of AFib diagnosed 10 years ago was on count Mag and did not have symptoms or issues for a very long time until a year that he has had intermittent symptoms. He did have a sleep study, an echo and Holter for 4 days showing paroxysmal atrial fibrillation. He takes metoprolol 25 mg b.i.d., fish oil and aspirin 81 mg once weekly. He follows with Dr. Dawson for cardiology in [place]. Dr. Collier at the [facility]. -Upon admit to the floor patient reports that his AFib is resolved and he is no longer feeling tachycardic or irregular heart rate he is in no pain at this time, and states that he is not experiencing fatigue or shortness of breath while resting in bed, he did note when he was transferred to the bed from the [facility] he did have some slight lightheadedness that has since resolved. When discussing the patient's AFib with RVR and VTE/DVT prophylaxis with the patient he clearly stated that after consultation with his television anchor (Dr. Bal [facility] and telling him) and oncologist that he avoids and refuses anticoagulation prophylaxis at this time and states that he takes high-dose fish oil. We did discuss the risks of a PE or DVT without prophylaxis, the patient clearly stated that he acknowledges the risks and refuses medication prophylaxis at this time. Patient's vital signs upon admission temp 98.3?, BP 108/68, HR 88, RR 25, O2 saturation 96% on 2 L. patient's labs HGB 10.8/HCT 33, platelets 478, sodium 130, BUN 29, Mag 1.9, BUN creatinine ratio 25.4, lactate negative, proBNP 2700. INR 1.3. Chest x-ray:Alveolar edema pattern bilaterally, suspect slight subpulmonic pleural effusions. Atypical pneumonia or cardiogenic pulmonary edema should be considered. This is superimposed on pre-existing pulmonary hyperexpansion consistent with COPD. CTA:IMPRESSION:No pulmonary embolism, Moderate bilateral pleural effusions, Diffuse interlobular septal thickening. Suspect pulmonary edema. A few areas of mild airspace opacity. This could be due to atelectasis or infectious/inflammatory etiology. Calcified GALLSTONE at the gallbladder neck. EKG:Interpretation: AFib RVR with rate of 124 QRS [address] change. No prior EKGs available. Patient has an echo from January of 2020 that shows an EF of 65% with no focal wall motion or abnormalities. Patient History Medical History Atrial fibrillation Bladder cancer Colostomy in place Surgical History Nephrostomy status Family & Social History Family History (Updated 06/16/20 @ 03:14 by ABBIE Mendez-JON) Mother Cancer Father Cancer Social History: household members spouse Prior Living Arrangements House Safety & Behavioral: Feels Safe in Current Yes Environment Been Physically Hurt or No Threatened By a Person Suicidal Ideation Description None Suicide Plan Description No Plan Tobacco & Substance use: Tobacco type cigars Smoking Status Former smoker alcohol intake former alcohol intake frequency holiday/special occasion Substance Use Type does not use Meds Home Medications and Allergies Home Medications Medication Instructions Recorded Confirmed Type acetaminophen [Tylenol] 650 mg PO Q4H PRN 06/15/20 06/15/20 History ascorbic acid (vitamin C) 500 mg PO DAILY 06/15/20 06/15/20 History aspirin 81 mg PO WEEKLY 06/15/20 06/15/20 History calcium carb-magnesium ox,carb tab PO 06/15/20 History [[place]-Mag] cholecalciferol (vitamin D3) 25 mcg PO DAILY 06/15/20 06/15/20 History [Vitamin D3] dexamethasone 1 mg PO DAILY PRN 06/15/20 06/15/20 History folic acid PO 06/15/20 History mecobalamin (vitamin B12) [B12 1,000 mcg PO DAILY 06/15/20 06/15/20 History Active] metoprolol succinate 25 mg PO BID 06/15/20 06/15/20 History metoprolol tartrate 25 mg PO PRN PRN 06/15/20 06/15/20 History omega-3 fatty acids-fish oil [Fish 6 cap PO DAILY 06/15/20 06/15/20 History Oil] ondansetron HCl [Zofran] 4 mg PO Q6H PRN 06/15/20 06/15/20 History pyridoxine (vitamin B6) mg PO DAILY 06/15/20 History vitamin K2 45 mcg PO DAILY 06/15/20 06/15/20 History Allergies Allergy/AdvReac Type Severity Reaction Status Date / Time No Known Drug Allergies Allergy Verified 06/15/20 14:15 Review of Systems Review of Systems ROS: Yes All systems reviewed with the patient and are negative except as otherwise documented Constitutional Constitutional: Reports system reviewed and no additional complaints, except as documented and Reports fatigue Eyes Eyes: Reports system reviewed and no additional complaints, except as documented ENT Ears, Nose, Mouth, and Throat: Yes system reviewed and no additional complaints, except as documented and Yes dizziness Cardiovascular Cardiovascular: Reports system reviewed and no additional complaints, except as documented Respiratory Respiratory: Reports system reviewed and no additional complaints, except as documented and Reports cough Gastrointestinal Gastrointestinal: Reports system reviewed and no additional complaints, except as documented Genitourinary Genitourinary: Reports system reviewed and no additional complaints, except as documented Musculoskeletal Musculoskeletal: Reports system reviewed and no additional complaints, except as documented Integumentary/Breasts Skin/Breast: Reports system reviewed and no additional complaints, except as documented Neurologic Neurologic: Reports system reviewed and no additional complaints, except as documented and Reports dizziness Psychiatric Psychiatric: Reports system reviewed and no additional complaints, except as documented Endocrine Endocrine: Reports system reviewed and no additional complaints, except as documented and Reports fatigue Hematologic/Lymphatic Hematologic/Lymphatic: Reports system reviewed and no additional complaints, except as documented Allergic/Immunologic Allergic/Immunologic: Reports system reviewed and no additional complaints, except as documented Exam Vital Signs (past 8 hours): - 06/15/20 19:01 06/15/20 19:15 06/15/20 19:30 Temperature Pulse Rate 93 H 88 Respiratory Rate Blood Pressure 125/61 108/68 Pulse Oximetry 90 L 90 L 94 06/15/20 19:45 06/15/20 19:47 06/15/20 19:50 Temperature 98.6 F Pulse Rate 92 H 93 H 101 H Respiratory Rate 17 Blood Pressure 107/57 L 118/64 Pulse Oximetry 95 94 96 06/15/20 20:01 06/15/20 20:08 06/15/20 20:34 Temperature Pulse Rate 80 Respiratory Rate Blood Pressure 118/64 Pulse Oximetry 97 96 97 06/16/20 00:08 06/16/20 01:45 Temperature 97.8 F Pulse Rate 104 H Respiratory Rate 20 Blood Pressure 99/63 Pulse Oximetry 96 96 Oxygen Delivery Method Nasal Cannula Oxygen Flow Rate 1 Narrative Exam Narrative: General: Patient is a well-developed, pleasant, thin moderately-nourished male, with noted muscle wasting secondary to bladder cancer/chemotherapy, in no distress at this time. HEENT: Normocephalic, atraumatic, extraocular muscles intact, oral pharynx is clear and mucous membranes are moist. Neck is supple and symmetric, trachea is midline, no adenopathy, no thyroid enlargement, nontender, no masses palpated. Negative for JVD Chest: Normal AP diameter and contour without kyphoscoliosis, no nasal flaring, retractions, or tachypneic labored Lungs: Auscultation of all lung black are clear without adventitious sounds, wheezes, rhonchi, or rales with the exception of crackles bilaterally in the lower to mid bases. Cardio: S1 & S2 with irregularly irregular rate and rhythm without murmur, rubs, or gallops, no carotid bruit, no cardiac pulsations present. Abdomen: Soft nontender, negative for organomegaly, or masses. Bowel sounds are present in all 4 quadrants without guarding or rebound, no CVA tenderness. Noted patient has colostomy bag and bilateral nephrostomy all sites are clean dry and intact without erythema inflammation pain or drainage, bags are draining appropriately. Musculoskeletal: Muscle strength and tone are equal within normal limits, no deformity, Jaxon crepitus, effusions, cyanosis, clubbing or edema present. Full range of motion intact radial and pedal pulses are normal. Skin: Warm dry and intact without rashes, ulcerations or petechiae. Neuro: Alert and orientated x3, strength is +5/5 in all extremities, sensation to touch intact, no gross deficits noted of cranial nerves. Psych: Patient has a well-kept appearance, appropriate affect, mental status attitude thought context and judgment are appropriate for age. Objective Labs Result Diagrams: 06/15/20 14:41 06/15/20 14:41 Labs: Laboratory Results - last 24 hr 06/15/20 06/15/20 06/15/20 14:41 14:41 14:41 WBC 9.8 RBC 3.83 L Hgb 10.8 L Hct 33.8 L MCV 88.2 MCH 28.3 MCHC 32.1 RDW 19.5 H Plt Count 478 H Neut % (Auto) 76.8 H Lymph % (Auto) 5.1 L [place] % (Auto) 14.7 H Eos % (Auto) 2.8 Baso % (Auto) 0.6 Neut # (Auto) 7500 H Lymph # (Auto) 500 L [place] # (Auto) 1400 H Eos # (Auto) 300 Baso # (Auto) 100 PT INR APTT Sodium 130 L Potassium 4.6 Chloride 101 Carbon Dioxide 26 BUN 29 H Creatinine 1.14 Estimated GFR > 60.0 BUN/Creatinine Ratio 25.4 H Glucose 101 Lactate 1.2 Calcium 9.0 Magnesium Total Bilirubin 0.6 AST 27 ALT 18 Alkaline Phosphatase 92 Total Creatine Kinase CK-MB (CK-2) CK-MB (CK-2) Rel Index Troponin I NT-Pro-B Natriuret Pep Total Protein 6.3 Albumin 3.6 Globulin 2.7 Albumin/Globulin Ratio 1.3 SARS-CoV-2 (PCR) 06/15/20 06/15/20 06/15/20 14:41 14:41 15:45 WBC RBC Hgb Hct MCV MCH MCHC RDW Plt Count Neut % (Auto) Lymph % (Auto) [place] % (Auto) Eos % (Auto) Baso % (Auto) Neut # (Auto) Lymph # (Auto) [place] # (Auto) Eos # (Auto) Baso # (Auto) PT 15.0 H INR 1.3 APTT 26 L Sodium Potassium Chloride Carbon Dioxide BUN Creatinine Estimated GFR BUN/Creatinine Ratio Glucose Lactate Calcium Magnesium 1.9 Total Bilirubin AST ALT Alkaline Phosphatase Total Creatine Kinase 27 L CK-MB (CK-2) TNP CK-MB (CK-2) Rel Index TNP Troponin I 0.036 H NT-Pro-B Natriuret Pep 2700 H Total Protein Albumin Globulin Albumin/Globulin Ratio SARS-CoV-2 (PCR) 06/15/20 06/15/20 15:46 18:09 WBC RBC Hgb Hct MCV MCH MCHC RDW Plt Count Neut % (Auto) Lymph % (Auto) [place] % (Auto) Eos % (Auto) Baso % (Auto) Neut # (Auto) Lymph # (Auto) [place] # (Auto) Eos # (Auto) Baso # (Auto) PT INR APTT Sodium Potassium Chloride Carbon Dioxide BUN Creatinine Estimated GFR BUN/Creatinine Ratio Glucose Lactate Calcium Magnesium Total Bilirubin AST ALT Alkaline Phosphatase Total Creatine Kinase CK-MB (CK-2) CK-MB (CK-2) Rel Index Troponin I 0.034 NT-Pro-B Natriuret Pep Total Protein Albumin Globulin Albumin/Globulin Ratio SARS-CoV-2 (PCR) Negative Assessment & Plan Assessment & Plan narrative: This patient requires acute care inpatient hospital management for worsening dyspnea/shortness of breath and fatigue with exacerbating factors of chemo therapy for bladder cancer. The patient is at much higher risk for medical and surgical complications because of of his minimal medication and anticoagulant management for atrial fibrillation with RVR and immunosuppression from chemotherapy. These factors increase the difficulty and complexity of medical and surgical interventions and increases the chances of poor outcomes such as morbidity and mortality. The patient's COPD and possible CHF exacerbation and atrial fibrillation with RVR will impact his oxygenation, which will likely impair his recovery. 1. Dyspnea/shortness of breath, acute on chronic, likely acute CHF exacerbation, acute on chronic, secondary to chronic COPD, exacerbated by acute on chronic atrial fibrillation with RVR and acute pleural effusions. Ruling out whether this is related to cardio atrial fib, blood loss anemia, or or pulmonary such as pneumonia - Troponin (0.036) is indeterminate with no clear EKG changes other than AFib with RVR. Second troponin:(0.034). Patient is on metoprolol 25 mg b.i.d, he denies serious bleeding issues in the past, this may be why patient is not fully anticoagulated. Chest x-ray and exam both her consistent with a CHF exacerbation this may be secondary to inappropriate squeeze. Last Echo from January of 2020- EF of 65% with no focal wall motion or abnormalities. Patient did have a CT with contrast but not angiography which showed coronary artery calcifications, interval development of ground-glass opacities and septal thickening involving all lobes along from predominantly lower lobes with some diffuse ground-glass opacity Um that was noted again. Patient has a moderate amount of pleural effusion. Unclear if his pleural effusion is related to his cancer of versus cardiac issues but no clear infectious changes today. Angiography was ordered shows no PE, patient does appear to have some CHF his troponin has improved on repeat was indeterminate initially. He has been more rate controlled after a dose of IV Cardizem and his oral metoprolol. -labs HGB 10.8/HCT 33, platelets 478, sodium 130, BUN 29, Mag 1.9, BUN creatinine ratio 25.4, lactate negative, proBNP 2700. INR 1.3. Chest x-ray:Alveolar edema pattern bilaterally, suspect slight subpulmonic pleural effusions. Atypical pneumonia or cardiogenic pulmonary edema should be considered. This is superimposed on pre-existing pulmonary hyperexpansion consistent with COPD. CTA:IMPRESSION:No pulmonary embolism, Moderate bilateral pleural effusions, Diffuse interlobular septal thickening. Suspect pulmonary edema. A few areas of mild airspace opacity. This could be due to atelectasis or infectious/inflammatory etiology. Calcified GALLSTONE at the gallbladder neck. EKG:Interpretation: AFib RVR with rate of 124 QRS [address] change. No prior EKGs available. Patient has an echo from January of 2020 that shows an EF of 65% with no focal wall motion or abnormalities. -Admit to tele, vital signs q.4 hours, orthostatics q.a.m., call for respiratory rate> 30, increasing O2 requirements, systolic blood pressure <95, urinary output<100cc/hr, activity bed rest with bathroom privileges of only with assist, fall precautions, daily weights with Lasix adjustments as needed, strict I&Os, O2 as needed to maintain a SaO2>92%, diet 2 g sodium restriction, curb-65 score: 2 points moderate risk, IDSA/ATS:Patient does not meet severity criteria guidelines for ICU admit. -patient's O2 saturation is 96% currently on 1 L nasal cannula, respiratory consult provided. Patient is not normally on O2 at home, will continue to monitor will order sputum culture and procalcitonin. -Labs ordered: Daily CBC, CMP, Mag, troponin x3 to assess trend, repeat ProBNP in a.m., TSH, ABGs to be ordered if patient develops respiratory distress. -hold Jose/Arb medications if creatinine>3, or hypotension present -He received lasix in the ED -will continue gentle diuresis, monitoring for hypotension with p.o. Lasix 20 mg QD. ( pulmonary edema) -will continue patient's metoprolol 25 mg p.o. b.i.d., and 25 mg metoprolol p.o. as needed for atrial fibrillation symptoms. May need to add additional amiodarone for rate control, if AP fib rate continues to be uncontrolled as patient's blood pressure is too low to take an increase in metoprolol dose. Will continue to monitor and recommended consult with Dr. Bal at [facility] in [place] to determine plan of care. -request records from Dr. Bal [facility] 2. Gallstones, in the gallbladder neck, acute, present on admission -patient appears to be asymptomatic at this time, we will address if patient develops symptoms and/or complications. 3. Bladder cancer, acute on chronic, present on admission -patient to continue with [facility] for his chemotherapy/an oncologist -continue patient's home codeine for chronic throat irritation/cough. -patient has bilateral nephrostomies, and a colostomy bag will assist patient in continued care. Code status: Full code Surrogate decision maker: Spouse Magda MORSE PCR: Negative VTE/DVT prophylaxis: Patient refused medication prophylaxis management, SCDs to continue Scores [facility] [place] coma scale eye opening: Spontaneous Es coma scale verbal response: Orientated Es coma scale motor response: Obey commands Es coma scale total score: 15 SOFA PaO2/FIO2: < 400 mmHg Platelets: >= 150 Bilirubin: < 1.2 mg/dL Hypotension: MAP >= 70 mmHg Es Coma Scale: 15 Renal: < 1.2 mg/dL SOFA Score: 1 Wells' Criteria for PE Clinical signs and symptoms of DVT: No PE is #1 Dx or equally likely: No Heart rate > 100: Yes Immobilization at least 3 days or surg in previous 4 weeks: No History of PE or DVT: No Hemoptysis: No Malignancy w/Treatment within 6 months or palliative: Yes Wells' PE Score total: 2.5 Quality VTE Deep Vein Thrombosis/Pulmonary Embolism Present on Admission: No
[2020-06-16 05:10] LABS: Add Manual Diff / Slide Review NO; Basophils Absolute Auto 100 /uL (0-100); Basophils Percent Auto 0.9 % (0-2); Eosinophils Absolute Auto 300 /uL (0-450); Eosinophils Percent Auto 4.3 % (2-4); Hematocrit 31.9 % (41-53); Hemoglobin 10.3 g/dL (13.5-17.5); Lymphocytes Absolute Auto 500 /uL (1100-4500); Lymphocytes Percent Auto 6.1 % (25-40); Mean Corpuscular HGB Conc 32.3 % (30-36); Mean Corpuscular Hemoglobin 28.3 PG (26-34); Mean Corpuscular Volume 87.5 fL (80-100); Monocytes Absolute Auto 1500 /uL (0-900); Monocytes Percent Auto 18.5 % (3-14); Neutrophils Absolute Auto 5700 /uL (1500-7000); Neutrophils Percent Auto 70.2 % (50-75); Platelet Count 496 X10^3/uL (150-400); Red Blood Cell Count 3.65 X10^6/uL (4.5-5.9); Red Cell Distribution Width 19.3 % (11.6-14.8); White Blood Cell Count 8.1 X10^3/uL (4.5-11.0)
[2020-06-16 05:11] LABS: INR 1.4 (0.9-1.3); Prothrombin Time 16.5 SECONDS (10.1-12.7)
[2020-06-16 05:19] LABS: Alanine Aminotransferase 14 IU/L (<50); Albumin 3.1 g/dL (3.5-5.0); Albumin Globulin Ratio 1.2 (1.0-2.8); Alkaline Phosphatase 84 U/L (38-126); Aspartate Aminotransferase 21 IU/L (17-59); BUN Creatinine Ratio 21.1 (6-22); Bilirubin Total 0.6 mg/dL (0.2-1.3); Blood Urea Nitrogen 26 mg/dL (9-20); Calcium 8.6 mg/dL (8.4-10.2); Carbon Dioxide 28 mmol/L (22-32); Chloride 100 mmol/L (98-107); Estimated Glomerular Filt Rate 56.3 mL/min (>60); Globulin 2.6 g/dL (1.7-4.1); Glucose 102 mg/dL (80-110); HEMOLYSIS < 15 (0-50); Magnesium 1.9 mg/dL (1.6-2.3); Potassium 4.3 mmol/L (3.4-5.1); Sodium 131 mmol/L (137-145); Total Protein 5.7 g/dL (6.3-8.2)
[2020-06-16 05:25] LABS: NT-proBNP (BNP-Adult 18+) 4820 pg/mL (<450)
[2020-06-16 05:28] LABS: Troponin I 0.033 ng/mL (0.01-0.034)
--- NOTE | 2020-06-16 08:11 | PT-IP ANOTE ---
Per Dr. Gill, pt does not have the need for therapy service at this point. DC from PT
--- NOTE | 2020-06-16 08:16 | OT.IPNOTE ---
Per Dr. Gill, okay to discharge Ot eval orders.
[2020-06-16 09:00] LABS: Procalcitonin < 0.05 ng/mL (<0.5)
[2020-06-16] MEDS: POTASSIUM CHLORIDE 20 MEQ TAB PO (09:29)
[2020-06-16] MEDS: METOPROLOL ER 25 MG TABLET 37.5 MG PO (09:29)
[2020-06-16] MEDS: FUROSEMIDE 40 MG/4 ML VIAL 20 MG IV (11:27)
--- NOTE | 2020-06-16 15:37 | P.PN_ITS ---
Subjective Subjective Date Patient Seen: 06/16/20 Interval history: Patient is 84-year-old male with history of chronic atrial fibrillation, invasive bladder CA, bilateral nephrostomy tubes, colostomy, currently undergoing chemotherapy at [facility] admitted with acute hypoxic respiratory failure due to AFib with RVR and CHF exacerbation. Patient reports substantial improvement in shortness of breath. He has improvement in oxygen saturation, still requiring 2 L this a.m., but after additional IV Lasix saturations are 93-95% on room air. He remains tachycardic with ventricular rate 115-140. Exam Vital Signs (past 8 hours): - 06/16/20 08:00 06/16/20 09:11 06/16/20 09:29 Temperature 98.0 F Pulse Rate 118 H 137 H Respiratory Rate 16 Blood Pressure 109/78 Pulse Oximetry 94 93 06/16/20 10:01 06/16/20 10:08 06/16/20 12:00 Temperature 98.4 F Pulse Rate 92 H 110 H Respiratory Rate 16 Blood Pressure 111/76 Pulse Oximetry 98 97 95 06/16/20 12:48 Temperature Pulse Rate Respiratory Rate Blood Pressure Pulse Oximetry 93 Oxygen Delivery Method Room Air Oxygen Flow Rate 0 Narrative Exam Narrative: General: Alert and very pleasant male in no acute distress Lungs: Clear to auscultation Heart: Tachycardic with irregularly irregular rhythm Abdomen: Clear urine in bilateral nephrostomy tubes, colostomy Extremities: Warm, dry without edema Neurological: Affect normal, nonfocal Objective Labs Result Diagrams: 06/16/20 04:47 06/16/20 04:47 Labs: Laboratory Results - last 24 hr 06/15/20 06/15/20 06/15/20 14:41 14:41 15:45 WBC RBC Hgb Hct MCV MCH MCHC RDW Plt Count Neut % (Auto) Lymph % (Auto) [place] % (Auto) Eos % (Auto) Baso % (Auto) Neut # (Auto) Lymph # (Auto) [place] # (Auto) Eos # (Auto) Baso # (Auto) PT 15.0 H INR 1.3 APTT 26 L Sodium Potassium Chloride Carbon Dioxide BUN Creatinine Estimated GFR BUN/Creatinine Ratio Glucose Calcium Magnesium 1.9 Total Bilirubin AST ALT Alkaline Phosphatase Total Creatine Kinase 27 L CK-MB (CK-2) TNP CK-MB (CK-2) Rel Index TNP Troponin I 0.036 H NT-Pro-B Natriuret Pep 2700 H Total Protein Albumin Globulin Albumin/Globulin Ratio Procalcitonin SARS-CoV-2 (PCR) 06/15/20 06/15/20 06/16/20 15:46 18:09 04:47 WBC 8.1 RBC 3.65 L Hgb 10.3 L Hct 31.9 L MCV 87.5 MCH 28.3 MCHC 32.3 RDW 19.3 H Plt Count 496 H Neut % (Auto) 70.2 Lymph % (Auto) 6.1 L [place] % (Auto) 18.5 H Eos % (Auto) 4.3 H Baso % (Auto) 0.9 Neut # (Auto) 5700 Lymph # (Auto) 500 L [place] # (Auto) 1500 H Eos # (Auto) 300 Baso # (Auto) 100 PT INR APTT Sodium Potassium Chloride Carbon Dioxide BUN Creatinine Estimated GFR BUN/Creatinine Ratio Glucose Calcium Magnesium Total Bilirubin AST ALT Alkaline Phosphatase Total Creatine Kinase CK-MB (CK-2) CK-MB (CK-2) Rel Index Troponin I 0.034 NT-Pro-B Natriuret Pep Total Protein Albumin Globulin Albumin/Globulin Ratio Procalcitonin SARS-CoV-2 (PCR) Negative 06/16/20 06/16/20 06/16/20 04:47 04:47 04:47 WBC RBC Hgb Hct MCV MCH MCHC RDW Plt Count Neut % (Auto) Lymph % (Auto) [place] % (Auto) Eos % (Auto) Baso % (Auto) Neut # (Auto) Lymph # (Auto) [place] # (Auto) Eos # (Auto) Baso # (Auto) PT 16.5 H INR 1.4 H APTT Sodium 131 L Potassium 4.3 Chloride 100 Carbon Dioxide 28 BUN 26 H Creatinine 1.23 Estimated GFR 56.3 L BUN/Creatinine Ratio 21.1 Glucose 102 Calcium 8.6 Magnesium 1.9 Total Bilirubin 0.6 AST 21 ALT 14 Alkaline Phosphatase 84 Total Creatine Kinase CK-MB (CK-2) CK-MB (CK-2) Rel Index Troponin I 0.033 NT-Pro-B Natriuret Pep 4820 H Total Protein 5.7 L Albumin 3.1 L Globulin 2.6 Albumin/Globulin Ratio 1.2 Procalcitonin SARS-CoV-2 (PCR) 06/16/20 05:00 WBC RBC Hgb Hct MCV MCH MCHC RDW Plt Count Neut % (Auto) Lymph % (Auto) [place] % (Auto) Eos % (Auto) Baso % (Auto) Neut # (Auto) Lymph # (Auto) [place] # (Auto) Eos # (Auto) Baso # (Auto) PT INR APTT Sodium Potassium Chloride Carbon Dioxide BUN Creatinine Estimated GFR BUN/Creatinine Ratio Glucose Calcium Magnesium Total Bilirubin AST ALT Alkaline Phosphatase Total Creatine Kinase CK-MB (CK-2) CK-MB (CK-2) Rel Index Troponin I NT-Pro-B Natriuret Pep Total Protein Albumin Globulin Albumin/Globulin Ratio Procalcitonin < 0.05 SARS-CoV-2 (PCR) [facility] Medical History Atrial fibrillation Bladder cancer Colostomy in place Surgical History Nephrostomy status Family History (Updated 06/16/20 @ 03:14 by ARISTEO Mendez) Mother Cancer Father Cancer Social History household members: spouse Smoking Status: Former smoker alcohol intake: former Assessment & Plan Assessment & Plan narrative: Patient is 84-year-old male with history of chronic atrial fibrillation, invasive bladder CA, bilateral nephrostomy tubes, colostomy, currently undergoing chemotherapy at [facility] admitted with acute hypoxic respiratory failure due to AFib with RVR and CHF exacerbation. 1. Acute hypoxic respiratory failure, resolving -secondary to AFib with RVR causing diastolic dysfunction leading to pulmonary edema -continue addressing underlying cause with AFib rate control and diuresis 2. Acute diastolic heart failure -patient presented with pulmonary edema and pleural effusions, reported increasing dyspnea over the past 2 weeks -responding to IV diuresis, additional dose Lasix 20 mg IV this a.m. -then Lasix 20 mg p.o. q.a.m. starting 06/17 -KCL 20 mEq p.o. q.d. to take with Lasix 3. Chronic atrial fibrillation with RVR -patient with uncontrolled VR -increase patient's metoprolol tartrate to 50 mg b.i.d. -patient with low normal blood pressure, monitor on increased dose of metopr olol, consider adding digoxin if needed for rate control -echo 02/01/2020: LVEF 60-65%, mild MR -patient sees Dr. Bal at [facility] for cardiology care -presumably not anticoagulated due to bleeding risk with his bladder CA -continue telemetry 4. Invasive bladder cancer -resume oncology services at [facility] after discharge Patient with improving hospital course and hopefully can discharge tomorrow, Saturday. Quality VTE Deep Vein Thrombosis/Pulmonary Embolism Present on Admission: No
--- NOTE | 2020-06-16 16:01 | CM.IDA ---
Initial DCP Assessment Note Pt is an 84 yo male, resident of [facility], patient presents w/severe SOB dyspnea, afib w/ RVR, sent by physician at [facility] PCP: Yinka Monroy Payer: JAKE/MARNIE Met w/patient and spouse Magda, introduced role. Patient was diagnosed w/in the last year with bladder cancer, and had been healthy and not taking/needing any medications prior to this diagnosis. Spouse is a retired RN, patient/spouse have two adult children. Patient explains the life sustaining chemo regiment he has been on has been working quite well, patient and spouse now trying to identify what is causing what and if it can be treated. Patient/spouse appear in good spirits today. Patient denies needs at this time, expects to remain in the hospital this evening w/possible DC home tomorrow. This FULL SERVICE SUPERVISOR will follow in case any DC needs or concerns arise. MONI Moore
--- NOTE | 2020-06-16 16:14 | DI.ECHO.S_ITS ---
[facility] +[facility]+ : : [address] : : : : [id number] : : : : Phone: [phone] Echocardiogram Report + + :Name: SALVADOR MATTSON Study Date: 06/17/2020 Height: 69 in : :[facility] ReadingLocation: Weight: 143 lb : : Gender: Male BSA: 1.8 m2 : :: 1935 Age: 84 yrs BP: 106/52 mmHg: :Reason For Study: Afib, CHF : :Ordering Physician: LAURO, : :JAIDEN Performed By: Lulu Villalpando : :Referring: JAIDEN RESTREPO : + + Interpretation Summary This is a limited study to evaluate for possible CHF. Normal sinus rhythm. Normal LV size, wall thickness, wall motion and LV systolic function. EF is 60-65%. There is flat mitral valve closure plane, and no color flow Doppler available to evaluate it further. Moderate central TR with estimated PA systolic pressure of 38 mm Hg assuming RA pressure of 8 mm Hg. There is a moderate left pleural effusion. Compared to prior study 02/01/2020 pleural effusion is new Procedure: A two-dimensional transthoracic echocardiogram with color flow and Doppler was performed in limited views only to assess CHF. The study quality was technically adequate. Comparison is made with the echocardiogram of 02/01/2020. The patient was in normal sinus rhythm during the exam. Left Ventricle: The left ventricle is normal in size and wall thickness. The ejection fraction is estimated to be 60-65%. Mitral Valve: There is a flat closure plane of the the mitral valve leaflets. Aortic Valve: The aortic valve is trileaflet. The aortic valve opens well. Tricuspid Valve: The tricuspid valve is normal in structure and function. There is mild to moderate tricuspid regurgitation. The right ventricular systolic pressure is estimated to be at least 38 mmHg based on an estimated right atrial pressure of 3 mm Hg. Great Vessels: The IVC is dilated (diameter is greater than 2.1 cm) yet it collapses greater than 50% with a sniff. This suggests a right atrial pressure of 8 mm Hg. Pericardium/ Pleura There is no pericardial effusion. There is a moderate left-sided pleural effusion. MMode/2D Measurements & Calculations LVIDd: 4.4 cm IVC diam: 1.8 cm LVIDs: 2.7 cm FS: 39.4 % IVSd: 0.86 cm LVPWd: 0.90 cm LV alva. diameter/BSA (cm/m^2): 2.5 LV sys. diameter/BSA (cm/m^2): 1.5 Doppler Measurements & Calculations TR max shakira: 279.9 cm/sec TR max P.3 mmHg Electronically signed by: Rowan Merino M.D. on Reading Physician:06/17/2020 03:46 PM
--- NOTE | 2020-06-16 16:53 | PC.NURSE ---
supplements while performing initial shift assessment, in room to round on/speak with pt and pt's Magda. During conversation, pt's states that she administered all of his home supplements previous shift from medications she brought from home. Dr. Gill and this RN informed that if pt is needing supplements they need to be sent to pharmacy to be ID'd and then we will dispense so we are able to keep track of what he's taking. and pt agreeable and state will not administer any further home medications.
[2020-06-16] MEDS: ASPIRIN EC 81 MG TABLET PO (17:26)
[2020-06-16 18:08] LABS: TSH w/ Reflex to FT4 1.13 uIU/mL (0.47-4.68)
[2020-06-16] MEDS: METOPROLOL ER 25 MG TABLET 50 MG PO (19:05)
[2020-06-17] VITALS (10 sets, daily range): BP systolic 106–124; BP diastolic 52–75; PULSE 68–89; RESP 16–20; TEMP 36.4–37; O2SAT 89–98
[2020-06-17 05:19] LABS: BUN Creatinine Ratio 26.8 (6-22); Blood Urea Nitrogen 30 mg/dL (9-20); Carbon Dioxide 29 mmol/L (22-32); Chloride 97 mmol/L (98-107); Estimated Glomerular Filt Rate > 60.0 mL/min (>60); Glucose 95 mg/dL (80-110); HEMOLYSIS < 15 (0-50); Potassium 4.1 mmol/L (3.4-5.1); Sodium 129 mmol/L (137-145)
[2020-06-17] MEDS: METOPROLOL ER 25 MG TABLET 50 MG PO (10:11)
[2020-06-17] MEDS: SODIUM CHLORIDE 0.9% FLUSH 10 ML IV (10:13)
--- NOTE | 2020-06-17 19:56 | PM.DS.1 ---
History of Present Illness History of Present Illness Chief complaint: thinks Plueral Effusion, sent by physician Narrative: Patient is 84-year-old male with history of paroxysmal atrial fibrillation, invasive bladder CA, bilateral nephrostomy tubes, colostomy, currently undergoing chemotherapy at [facility] admitted with acute hypoxic respiratory failure due to AFib with RVR and acute CHF. Discharge Providers Provider Date of admission: 06/15/20 19:05 Discharge Date: 06/17/20 Primary care physician: Andra Ca MD Consults: 06/15/20 20:14 Consult to Discharge Planning Routine Comment: Consult to Occupational Therapy Evaluate & Treat Comment: Physician Instructions: Evaluate and treat Consult to Physical Therapy Evaluate & Treat Comment: Physician Instructions: Evaluate and Treat Discharge provider: Sajan Gill MD Summary Hospital Course Discharge Diagnosis: 1. Paroxysmal atrial fibrillation with RVR 2. Acute heart failure with preserved EF 3. Acute hypoxic respiratory failure 4. Invasive bladder cancer Limited echo: Normal LV size and systolic function, EF 60-65%, moderate left pleural effusion Patient was admitted for diuresis and rate control. He had substantial improvement whereas initially requiring supplemental O2 and now with normal O2 sats on room air. He converted back to sinus rhythm prior to discharge. A limited echo was similar to recent echo several months ago. His metoprolol was increased to 50 mg b.i.d.. His heart rate is in the 60s to 70 range back in sinus rhythm. He still has some residual pleural effusion. He is instructed to take Lasix and potassium by mouth for 3 more days then stop if he is not feeling shortness of breath. He has follow-up with his senior customer service representative Dr. Prado in 1 week. Status at Discharge Cognitive/behavioral status at discharge: oriented Functional status at discharge: independent ambulation Overall status at discharge: patient is progressing back to baseline Time Spent with Patient Time spent: Greater than 30 minutes Exam Vital Signs (past 8 hours): - 06/17/20 12:16 06/17/20 13:58 Temperature 98.6 F Pulse Rate 69 Respiratory Rate 20 Blood Pressure 124/63 Pulse Oximetry 93 92 Oxygen Delivery Method Room Air Oxygen Flow Rate 0 Objective Labs Result Diagrams: 06/16/20 04:47 06/17/20 04:54 Labs: Laboratory Results - last 24 hr 06/17/20 04:54 Sodium 129 L Potassium 4.1 Chloride 97 L Carbon Dioxide 29 BUN 30 H Creatinine 1.12 Estimated GFR > 60.0 BUN/Creatinine Ratio 26.8 H Glucose 95 Calcium 9.0 PFSH Medical History Atrial fibrillation Bladder cancer Colostomy in place Surgical History Nephrostomy status Family History (Updated 06/16/20 @ 03:14 by ARISTEO Mendez) Mother Cancer Father Cancer Social History household members: spouse Smoking Status: Former smoker alcohol intake: former Discharge Plan Discharge Plan Patient Disposition: Home Provider Discharge Comment: Take furosemide and potassium for the next 3 days then stop if breathing is good. Discharge orders & Medications Prescriptions: New metoprolol succinate 50 mg tablet extended release 24 hr 50 mg PO BID Qty: 60 RF: 0 furosemide 20 mg tablet 20 mg PO DAILY Qty: 10 RF: 0 potassium chloride 20 mEq tablet extended release 20 meq PO DAILY Qty: 10 RF: 0 Continued ondansetron HCl [Zofran] 4 mg Tablet 4 mg PO Q6H PRN (Reason: Nausea) RF: 0 aspirin 81 mg Tablet 81 mg PO WEEKLY RF: 0 metoprolol tartrate 25 mg Tablet 25 mg PO PRN PRN (Reason: Tachycardia) RF: 0 acetaminophen [Tylenol] 325 mg Capsule 650 mg PO Q4H PRN (Reason: Pain, Mild) RF: 0 Fish Oil 340-1,000 mg Capsule 6 cap PO DAILY RF: 0 Don[place]-Mag 200 mg calcium- 100 mg Tablet,Chewable PO RF: 0 dexamethasone 1 mg Tablet 1 mg PO DAILY PRN (Reason: (Drug) Ingestion) RF: 0 pyridoxine (vitamin B6) 25 mg Tablet PO DAILY RF: 0 folic acid 5 mg Capsule PO RF: 0 cholecalciferol (vitamin D3) [Vitamin D3] 25 mcg (1,000 unit) Tablet 25 mcg PO DAILY RF: 0 ascorbic acid (vitamin C) 500 mg Capsule 500 mg PO DAILY RF: 0 B12 Active 1,000 mcg Tablet,Chewable 1,000 mcg PO DAILY RF: 0 vitamin K2 45 mcg Capsule 45 mcg PO DAILY RF: 0 Discontinued metoprolol succinate 25 mg Tablet Extended Release 24 Hr 25 mg PO BID RF: 0 Follow up/Referrals: Andra Ca MD [Primary Care Provider] - Christian Prado MD [Non-Staff] - 1 Week Diet/Activity/Treatments Diet: Regular Visit Report/Discharge Packet Instructions: DI for Heart Failure, DI for Prescription Opioid Use Discharge Data Primary Care Provider: Andra Ca Quality VTE Deep Vein Thrombosis/Pulmonary Embolism Present on Admission: No
== END 2020-06-17 16:33 | disposition home or self-care (01) | DRG 291 ==
LOC: ED 19:02 → AC 06-16 09:18
PROVIDERS: Nurse Practitioner Family; Admitting Provider Internal Medicine; Emergency Provider Emergency Medicine; Family Provider Internal Medicine; PCP Internal Medicine; Referring Provider Student in an Organized Health Care Education/Training Program; Visit Provider Internal Medicine
DX: I50.33 Acute on chronic diastolic (congestive) heart failure (principal); J96.01 Acute respiratory failure with hypoxia; I48.20 Chronic atrial fibrillation, unspecified; C79.89 Secondary malignant neoplasm of other specified sites; J90 Pleural effusion, not elsewhere classified; C67.9 Malignant neoplasm of bladder, unspecified; Z93.6 Other artificial openings of urinary tract status; Z93.3 Colostomy status; J44.9 Chronic obstructive pulmonary disease, unspecified; Z87.891 Personal history of nicotine dependence
CPT/HCPCS: 36415; 71046; 71275; 80048; 80053; 82550; 83605; 83735; 83880; 84145; 84443; 84484; 85025; 85610; 85730; 87635; 93005; 93010; 93307; 94760; 96374; 96375; 99284; C9803; J1940; Q9967

== ENCOUNTER → 2020-06-23 10:35 | Outpatient (CLI) | payer MEDICARE, OTHER, SELFPAY ==
[2020-06-15 19:34] VITALS: BMI 21.2
--- NOTE | 2020-06-23 | DI.RAD.S_ITS ---
PROCEDURE: XR CHEST 2V INDICATIONS: J90 TECHNIQUE: 2 views of the chest were acquired. COMPARISON: [facility], CT, CT ANGIO CHEST PE PROTOCOL, 06/15/2020, 17:36. [facility], CR, XR CHEST 2V, 06/15/2020, 14:31. [facility], CR, XR CHEST 2V, 04/08/2020, 13:41. FINDINGS: Surgical changes and devices: Port-A-Cath right chest, extending into the distal SVC. Lungs and pleura: Lungs are mildly abnormal with a mild interstitial prominence perhaps reflecting prior smoking history. Large lung volumes, suspect COPD.. No pleural effusions or pneumothorax. Mediastinum: Mediastinal contours are normal. Heart size is normal. Bones and chest wall: No suspicious bony abnormalities. Soft tissues appear unremarkable. IMPRESSION: Port-A-Cath in normal position, COPD, mild interstitial prominence. Dictated by: Kiran Steve M.D. on 06/23/2020 at 13:21 Approved by: Kiran Steve M.D. on 06/23/2020 at 13:22
== END ==
PROVIDERS: Family Provider Internal Medicine; PCP Internal Medicine; Referring Provider Student in an Organized Health Care Education/Training Program; Visit Provider Student in an Organized Health Care Education/Training Program
DX: J90 Pleural effusion, not elsewhere classified (principal); Z95.828 Presence of other vascular implants and grafts
CPT/HCPCS: 71046

== ENCOUNTER → 2020-07-16 08:08 | Outpatient (CLI) | payer MEDICARE, OTHER, SELFPAY ==
[2020-06-15 19:34] VITALS: BMI 21.2
[2020-07-16 09:13] LABS: Add Manual Diff / Slide Review NO; Basophils Absolute Auto 100 /uL (0-100); Basophils Percent Auto 1.1 % (0-2); Eosinophils Absolute Auto 700 /uL (0-450); Eosinophils Percent Auto 8.8 % (2-4); Hematocrit 35.6 % (41-53); Hemoglobin 11.7 g/dL (13.5-17.5); Lymphocytes Absolute Auto 600 /uL (1100-4500); Lymphocytes Percent Auto 7.5 % (25-40); Mean Corpuscular HGB Conc 32.9 % (30-36); Mean Corpuscular Hemoglobin 28.2 PG (26-34); Mean Corpuscular Volume 85.8 fL (80-100); Monocytes Absolute Auto 700 /uL (0-900); Neutrophils Absolute Auto 5700 /uL (1500-7000); Neutrophils Percent Auto 73.6 % (50-75); Platelet Count 270 X10^3/uL (150-400); Red Blood Cell Count 4.14 X10^6/uL (4.5-5.9); Red Cell Distribution Width 18.5 % (11.6-14.8); White Blood Cell Count 7.7 X10^3/uL (4.5-11.0)
[2020-07-16 09:45] LABS: Alanine Aminotransferase 13 IU/L (<50); Albumin 3.9 g/dL (3.5-5.0); Albumin Globulin Ratio 1.6 (1.0-2.8); Alkaline Phosphatase 73 U/L (38-126); Aspartate Aminotransferase 24 IU/L (17-59); BUN Creatinine Ratio 19.5 (6-22); Bilirubin Total 0.6 mg/dL (0.2-1.3); Blood Urea Nitrogen 25 mg/dL (9-20); Calcium 10.2 mg/dL (8.4-10.2); Carbon Dioxide 28 mmol/L (22-32); Chloride 102 mmol/L (98-107); Estimated Glomerular Filt Rate 53.8 mL/min (>60); Globulin 2.5 g/dL (1.7-4.1); Glucose 121 mg/dL (80-110); HEMOLYSIS < 15 (0-50); Potassium 4.5 mmol/L (3.4-5.1); Sodium 134 mmol/L (137-145); Total Protein 6.4 g/dL (6.3-8.2)
== END ==
PROVIDERS: Family Provider Internal Medicine; PCP Internal Medicine; Referring Provider Student in an Organized Health Care Education/Training Program; Visit Provider Student in an Organized Health Care Education/Training Program
DX: C67.9 Malignant neoplasm of bladder, unspecified (principal)
CPT/HCPCS: 36415; 80053; 85025

== ENCOUNTER → 2020-07-26 13:51 | Outpatient (CLI) | payer MEDICARE, OTHER, SELFPAY ==
[2020-06-15 19:34] VITALS: BMI 21.2
[2020-07-26 14:34] LABS: Add Manual Diff / Slide Review NO; Basophils Absolute Auto 100 /uL (0-100); Basophils Percent Auto 0.8 % (0-2); Eosinophils Absolute Auto 400 /uL (0-450); Hematocrit 35.7 % (41-53); Hemoglobin 11.9 g/dL (13.5-17.5); Lymphocytes Absolute Auto 500 /uL (1100-4500); Lymphocytes Percent Auto 6.7 % (25-40); Mean Corpuscular HGB Conc 33.2 % (30-36); Mean Corpuscular Hemoglobin 28.3 PG (26-34); Mean Corpuscular Volume 85.2 fL (80-100); Monocytes Absolute Auto 600 /uL (0-900); Monocytes Percent Auto 8.2 % (3-14); Neutrophils Absolute Auto 5900 /uL (1500-7000); Neutrophils Percent Auto 79.3 % (50-75); Platelet Count 321 X10^3/uL (150-400); Red Blood Cell Count 4.19 X10^6/uL (4.5-5.9); Red Cell Distribution Width 18.6 % (11.6-14.8); White Blood Cell Count 7.5 X10^3/uL (4.5-11.0)
[2020-07-26 15:20] LABS: Alanine Aminotransferase 11 IU/L (<50); Albumin Globulin Ratio 1.7 (1.0-2.8); Alkaline Phosphatase 76 U/L (38-126); Aspartate Aminotransferase 23 IU/L (17-59); BUN Creatinine Ratio 21.1 (6-22); Bilirubin Total 0.3 mg/dL (0.2-1.3); Blood Urea Nitrogen 30 mg/dL (9-20); Calcium 9.8 mg/dL (8.4-10.2); Carbon Dioxide 28 mmol/L (22-32); Chloride 100 mmol/L (98-107); Estimated Glomerular Filt Rate 47.7 mL/min (>60); Globulin 2.4 g/dL (1.7-4.1); Glucose 108 mg/dL (80-110); HEMOLYSIS < 15 (0-50); Magnesium 2.1 mg/dL (1.6-2.3); Potassium 4.7 mmol/L (3.4-5.1); Sodium 136 mmol/L (137-145); Total Protein 6.4 g/dL (6.3-8.2)
== END ==
PROVIDERS: Family Provider Internal Medicine; PCP Internal Medicine; Referring Provider Student in an Organized Health Care Education/Training Program; Visit Provider Student in an Organized Health Care Education/Training Program
DX: C67.9 Malignant neoplasm of bladder, unspecified (principal)
CPT/HCPCS: 36415; 80053; 83735; 85025

== ENCOUNTER → 2020-08-02 08:04 | Outpatient (CLI) | payer MEDICARE, OTHER, SELFPAY ==
[2020-06-15 19:34] VITALS: BMI 21.2
[2020-08-02 08:55] LABS: Add Manual Diff / Slide Review NO; Basophils Absolute Auto 100 /uL (0-100); Eosinophils Absolute Auto 400 /uL (0-450); Eosinophils Percent Auto 6.3 % (2-4); Hematocrit 36.2 % (41-53); Hemoglobin 11.7 g/dL (13.5-17.5); Lymphocytes Absolute Auto 600 /uL (1100-4500); Lymphocytes Percent Auto 10.2 % (25-40); Mean Corpuscular HGB Conc 32.4 % (30-36); Mean Corpuscular Hemoglobin 27.6 PG (26-34); Mean Corpuscular Volume 85.2 fL (80-100); Monocytes Absolute Auto 700 /uL (0-900); Monocytes Percent Auto 13.1 % (3-14); Neutrophils Absolute Auto 3900 /uL (1500-7000); Neutrophils Percent Auto 69.4 % (50-75); Platelet Count 278 X10^3/uL (150-400); Red Blood Cell Count 4.24 X10^6/uL (4.5-5.9); White Blood Cell Count 5.6 X10^3/uL (4.5-11.0)
[2020-08-02 09:20] LABS: Alanine Aminotransferase 12 IU/L (<50); Albumin Globulin Ratio 1.4 (1.0-2.8); Alkaline Phosphatase 84 U/L (38-126); Aspartate Aminotransferase 25 IU/L (17-59); BUN Creatinine Ratio 23.1 (6-22); Bilirubin Total 0.5 mg/dL (0.2-1.3); Blood Urea Nitrogen 33 mg/dL (9-20); Carbon Dioxide 28 mmol/L (22-32); Chloride 103 mmol/L (98-107); Estimated Glomerular Filt Rate 47.3 mL/min (>60); Globulin 2.8 g/dL (1.7-4.1); Glucose 100 mg/dL (80-110); HEMOLYSIS < 15 (0-50); Potassium 4.8 mmol/L (3.4-5.1); Sodium 138 mmol/L (137-145); Total Protein 6.8 g/dL (6.3-8.2)
== END ==
PROVIDERS: Family Provider Internal Medicine; PCP Internal Medicine; Referring Provider Student in an Organized Health Care Education/Training Program; Visit Provider Student in an Organized Health Care Education/Training Program
DX: C67.9 Malignant neoplasm of bladder, unspecified (principal)
CPT/HCPCS: 36415; 80053; 85025

== ENCOUNTER → 2020-08-09 07:26 | Outpatient (CLI) | payer MEDICARE, OTHER, SELFPAY ==
[2020-06-15 19:34] VITALS: BMI 21.2
[2020-08-09 08:15] LABS: Add Manual Diff / Slide Review NO; Basophils Absolute Auto 100 /uL (0-100); Basophils Percent Auto 1.3 % (0-2); Eosinophils Absolute Auto 400 /uL (0-450); Hematocrit 33.8 % (41-53); Hemoglobin 11.2 g/dL (13.5-17.5); Lymphocytes Absolute Auto 600 /uL (1100-4500); Lymphocytes Percent Auto 10.7 % (25-40); Mean Corpuscular HGB Conc 33.1 % (30-36); Mean Corpuscular Hemoglobin 27.9 PG (26-34); Mean Corpuscular Volume 84.4 fL (80-100); Monocytes Absolute Auto 500 /uL (0-900); Neutrophils Absolute Auto 3900 /uL (1500-7000); Platelet Count 300 X10^3/uL (150-400); Red Cell Distribution Width 17.5 % (11.6-14.8); White Blood Cell Count 5.5 X10^3/uL (4.5-11.0)
[2020-08-09 16:28] LABS: Alanine Aminotransferase 16 IU/L (<50); Albumin 3.6 g/dL (3.5-5.0); Albumin Globulin Ratio 1.6 (1.0-2.8); Alkaline Phosphatase 76 U/L (38-126); Aspartate Aminotransferase 29 IU/L (17-59); Bilirubin Total 0.3 mg/dL (0.2-1.3); Blood Urea Nitrogen 27 mg/dL (9-20); Calcium 9.7 mg/dL (8.4-10.2); Carbon Dioxide 26 mmol/L (22-32); Chloride 104 mmol/L (98-107); Estimated Glomerular Filt Rate 50.5 mL/min (>60); Globulin 2.3 g/dL (1.7-4.1); Glucose 97 mg/dL (80-110); HEMOLYSIS < 15 (0-50); Potassium 4.9 mmol/L (3.4-5.1); Sodium 137 mmol/L (137-145); Total Protein 5.9 g/dL (6.3-8.2)
== END ==
PROVIDERS: Family Provider Internal Medicine; PCP Internal Medicine; Referring Provider Student in an Organized Health Care Education/Training Program; Visit Provider Student in an Organized Health Care Education/Training Program
DX: C67.9 Malignant neoplasm of bladder, unspecified (principal)
CPT/HCPCS: 36415; 80053; 85025

== ENCOUNTER → 2020-08-23 07:17 | Outpatient (CLI) | payer MEDICARE, OTHER, SELFPAY ==
[2020-06-15 19:34] VITALS: BMI 21.2
[2020-08-23 08:10] LABS: Add Manual Diff / Slide Review NO; Basophils Absolute Auto 100 /uL (0-100); Basophils Percent Auto 2.1 % (0-2); Eosinophils Absolute Auto 100 /uL (0-450); Eosinophils Percent Auto 2.7 % (2-4); Hematocrit 37.8 % (41-53); Hemoglobin 12.4 g/dL (13.5-17.5); Lymphocytes Absolute Auto 500 /uL (1100-4500); Lymphocytes Percent Auto 16.4 % (25-40); Mean Corpuscular HGB Conc 32.9 % (30-36); Mean Corpuscular Hemoglobin 27.8 PG (26-34); Mean Corpuscular Volume 84.3 fL (80-100); Monocytes Absolute Auto 600 /uL (0-900); Monocytes Percent Auto 18.8 % (3-14); Neutrophils Absolute Auto 1900 /uL (1500-7000); Platelet Count 356 X10^3/uL (150-400); Red Blood Cell Count 4.48 X10^6/uL (4.5-5.9); Red Cell Distribution Width 18.4 % (11.6-14.8); White Blood Cell Count 3.2 X10^3/uL (4.5-11.0)
[2020-08-23 08:27] LABS: Alanine Aminotransferase 16 IU/L (<50); Albumin 4.1 g/dL (3.5-5.0); Albumin Globulin Ratio 1.5 (1.0-2.8); Alkaline Phosphatase 88 U/L (38-126); Aspartate Aminotransferase 29 IU/L (17-59); BUN Creatinine Ratio 20.6 (6-22); Bilirubin Total 0.4 mg/dL (0.2-1.3); Blood Urea Nitrogen 26 mg/dL (9-20); Carbon Dioxide 29 mmol/L (22-32); Chloride 104 mmol/L (98-107); Estimated Glomerular Filt Rate 54.7 mL/min (>60); Globulin 2.8 g/dL (1.7-4.1); Glucose 107 mg/dL (80-110); HEMOLYSIS < 15 (0-50); Magnesium 2.2 mg/dL (1.6-2.3); Potassium 5.1 mmol/L (3.4-5.1); Sodium 138 mmol/L (137-145); Total Protein 6.9 g/dL (6.3-8.2)
[2020-08-23 08:39] LABS: Free T3, Triiodothyronine Free 3.31 pg/mL (2.77-5.27); Free T4, Direct Thyroxine 1.07 ng/dL (0.78-2.19)
[2020-08-23 08:53] LABS: Thyroid Stimulating Hormone 1.89 uIU/mL (0.47-4.68)
== END ==
PROVIDERS: Family Provider Internal Medicine; PCP Internal Medicine; Referring Provider Internal Medicine Cardiovascular Disease; Visit Provider Student in an Organized Health Care Education/Training Program
DX: C67.9 Malignant neoplasm of bladder, unspecified (principal); I48.0 Paroxysmal atrial fibrillation; Z79.899 Other long term (current) drug therapy; E03.9 Hypothyroidism, unspecified; I49.3 Ventricular premature depolarization
CPT/HCPCS: 36415; 80053; 83735; 84439; 84443; 84481; 85025

== ENCOUNTER → 2020-08-30 07:29 | Outpatient (CLI) | payer MEDICARE, OTHER, SELFPAY ==
[2020-06-15 19:34] VITALS: BMI 21.2
[2020-08-30 08:25] LABS: Add Manual Diff / Slide Review NO; Basophils Absolute Auto 0 /uL (0-100); Basophils Percent Auto 1.1 % (0-2); Eosinophils Absolute Auto 100 /uL (0-450); Eosinophils Percent Auto 2.3 % (2-4); Hematocrit 33.2 % (41-53); Hemoglobin 11.3 g/dL (13.5-17.5); Lymphocytes Absolute Auto 400 /uL (1100-4500); Mean Corpuscular Hemoglobin 28.3 PG (26-34); Mean Corpuscular Volume 83.2 fL (80-100); Monocytes Absolute Auto 700 /uL (0-900); Monocytes Percent Auto 15.1 % (3-14); Neutrophils Absolute Auto 3100 /uL (1500-7000); Neutrophils Percent Auto 71.5 % (50-75); Platelet Count 317 X10^3/uL (150-400); Red Blood Cell Count 3.98 X10^6/uL (4.5-5.9); Red Cell Distribution Width 17.5 % (11.6-14.8); White Blood Cell Count 4.4 X10^3/uL (4.5-11.0)
[2020-08-30 09:18] LABS: Alanine Aminotransferase 12 IU/L (<50); Albumin 3.6 g/dL (3.5-5.0); Albumin Globulin Ratio 1.4 (1.0-2.8); Alkaline Phosphatase 79 U/L (38-126); Aspartate Aminotransferase 26 IU/L (17-59); BUN Creatinine Ratio 20.5 (6-22); Bilirubin Total 0.3 mg/dL (0.2-1.3); Blood Urea Nitrogen 32 mg/dL (9-20); Carbon Dioxide 28 mmol/L (22-32); Chloride 102 mmol/L (98-107); Estimated Glomerular Filt Rate 42.7 mL/min (>60); Globulin 2.6 g/dL (1.7-4.1); Glucose 93 mg/dL (80-110); HEMOLYSIS < 15 (0-50); Sodium 136 mmol/L (137-145); Total Protein 6.2 g/dL (6.3-8.2)
[2020-08-30 09:20] LABS: Potassium 5.5 mmol/L (3.4-5.1)
== END ==
PROVIDERS: Family Provider Internal Medicine; PCP Internal Medicine; Referring Provider Student in an Organized Health Care Education/Training Program; Visit Provider Student in an Organized Health Care Education/Training Program
DX: C67.9 Malignant neoplasm of bladder, unspecified (principal); I48.0 Paroxysmal atrial fibrillation
CPT/HCPCS: 36415; 80053; 83735; 85025

== ENCOUNTER → 2020-09-01 09:27 | Outpatient (CLI) | payer MEDICARE, OTHER, SELFPAY ==
[2020-06-15 19:34] VITALS: BMI 21.2
[2020-09-01 10:08] LABS: COVID19 -Nasal RAPID Negative (Negative)
== END ==
PROVIDERS: Family Provider Internal Medicine; PCP Internal Medicine; Referring Provider Internal Medicine; Visit Provider Internal Medicine
DX: Z20.822 Contact with and (suspected) exposure to COVID-19 (principal)
CPT/HCPCS: 87635; C9803

== ENCOUNTER → 2020-09-02 06:42 | Outpatient (CLI) | payer MEDICARE, OTHER, SELFPAY ==
[2020-06-15 19:34] VITALS: BMI 21.2
--- NOTE | 2020-09-07 08:59 | PM.PFT.1 ---
Pulmonary Function Test Referral & Results Date Patient Seen: 09/02/20 Requesting provider: Christian Prado Results: The spirometry demonstrates an FVC of 3.67 L which is 98% of predicted. The FEV1 was measured at 2.96 L which is 113% of predicted. The FEV1/FVC ratio was 81 which is 113% of predicted. Following the administration of bronchodilator there was the 13% improvement in FEV1 and a 54% improvement in FEF 25-75%. Lung volumes show an SVC of 4.33 L which is 103% of predicted. The diffusing capacity was measured at 16.77 which is 54% of predicted. 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
== END ==
PROVIDERS: Family Provider Internal Medicine; PCP Internal Medicine; Referring Provider Internal Medicine Cardiovascular Disease; Visit Provider Internal Medicine Cardiovascular Disease
DX: R06.02 Shortness of breath (principal); I48.0 Paroxysmal atrial fibrillation; Z79.899 Other long term (current) drug therapy
CPT/HCPCS: 94060; 94726; 94729

== ENCOUNTER → 2020-09-06 07:44 | Outpatient (CLI) | payer MEDICARE, OTHER, SELFPAY ==
[2020-06-15 19:34] VITALS: BMI 21.2
[2020-09-06 08:53] LABS: Add Manual Diff / Slide Review NO; Basophils Absolute Auto 100 /uL (0-100); Basophils Percent Auto 1.1 % (0-2); Eosinophils Absolute Auto 200 /uL (0-450); Eosinophils Percent Auto 3.9 % (2-4); Hematocrit 33.4 % (41-53); Hemoglobin 11.3 g/dL (13.5-17.5); Lymphocytes Absolute Auto 500 /uL (1100-4500); Lymphocytes Percent Auto 8.5 % (25-40); Mean Corpuscular HGB Conc 33.7 % (30-36); Mean Corpuscular Hemoglobin 28.4 PG (26-34); Mean Corpuscular Volume 84.1 fL (80-100); Monocytes Absolute Auto 600 /uL (0-900); Monocytes Percent Auto 10.4 % (3-14); Neutrophils Absolute Auto 4400 /uL (1500-7000); Neutrophils Percent Auto 76.1 % (50-75); Platelet Count 298 X10^3/uL (150-400); Red Blood Cell Count 3.97 X10^6/uL (4.5-5.9); Red Cell Distribution Width 18.2 % (11.6-14.8); White Blood Cell Count 5.7 X10^3/uL (4.5-11.0)
[2020-09-06 09:08] LABS: Alanine Aminotransferase 17 IU/L (<50); Albumin 3.5 g/dL (3.5-5.0); Albumin Globulin Ratio 1.3 (1.0-2.8); Alkaline Phosphatase 72 U/L (38-126); Aspartate Aminotransferase 31 IU/L (17-59); BUN Creatinine Ratio 19.5 (6-22); Bilirubin Total 0.3 mg/dL (0.2-1.3); Blood Urea Nitrogen 29 mg/dL (9-20); Calcium 9.5 mg/dL (8.4-10.2); Carbon Dioxide 29 mmol/L (22-32); Chloride 102 mmol/L (98-107); Globulin 2.7 g/dL (1.7-4.1); Glucose 99 mg/dL (80-110); HEMOLYSIS < 15 (0-50); Potassium 4.4 mmol/L (3.4-5.1); Sodium 134 mmol/L (137-145); Total Protein 6.2 g/dL (6.3-8.2)
== END ==
PROVIDERS: Family Provider Internal Medicine; PCP Internal Medicine; Referring Provider Student in an Organized Health Care Education/Training Program; Visit Provider Student in an Organized Health Care Education/Training Program
CPT/HCPCS: 36415; 80053; 83735; 85025

== ENCOUNTER → 2020-09-20 07:15 | Outpatient (CLI) | payer MEDICARE, OTHER, SELFPAY ==
[2020-06-15 19:34] VITALS: BMI 21.2
[2020-09-20 08:15] LABS: Add Manual Diff / Slide Review NO; Basophils Absolute Auto 100 /uL (0-100); Basophils Percent Auto 2.5 % (0-2); Eosinophils Absolute Auto 0 /uL (0-450); Hematocrit 35.2 % (41-53); Hemoglobin 11.7 g/dL (13.5-17.5); Lymphocytes Absolute Auto 400 /uL (1100-4500); Lymphocytes Percent Auto 16.3 % (25-40); Mean Corpuscular HGB Conc 33.1 % (30-36); Mean Corpuscular Hemoglobin 28.2 PG (26-34); Mean Corpuscular Volume 85.2 fL (80-100); Monocytes Absolute Auto 600 /uL (0-900); Monocytes Percent Auto 26.3 % (3-14); Neutrophils Absolute Auto 1100 /uL (1500-7000); Neutrophils Percent Auto 52.9 % (50-75); Platelet Count 366 X10^3/uL (150-400); Red Blood Cell Count 4.13 X10^6/uL (4.5-5.9); Red Cell Distribution Width 19.1 % (11.6-14.8); White Blood Cell Count 2.2 X10^3/uL (4.5-11.0)
[2020-09-20 08:29] LABS: Alanine Aminotransferase 17 IU/L (<50); Albumin 3.9 g/dL (3.5-5.0); Albumin Globulin Ratio 1.3 (1.0-2.8); Alkaline Phosphatase 84 U/L (38-126); Aspartate Aminotransferase 29 IU/L (17-59); BUN Creatinine Ratio 19.4 (6-22); Bilirubin Total 0.4 mg/dL (0.2-1.3); Blood Urea Nitrogen 28 mg/dL (9-20); Calcium 9.8 mg/dL (8.4-10.2); Carbon Dioxide 28 mmol/L (22-32); Chloride 101 mmol/L (98-107); Estimated Glomerular Filt Rate 46.9 mL/min (>60); Globulin 2.9 g/dL (1.7-4.1); Glucose 99 mg/dL (80-110); HEMOLYSIS < 15 (0-50); Magnesium 2.1 mg/dL (1.6-2.3); Potassium 4.4 mmol/L (3.4-5.1); Sodium 136 mmol/L (137-145); Total Protein 6.8 g/dL (6.3-8.2)
== END ==
PROVIDERS: Family Provider Internal Medicine; PCP Internal Medicine; Referring Provider Student in an Organized Health Care Education/Training Program; Visit Provider Student in an Organized Health Care Education/Training Program
DX: C67.8 Malignant neoplasm of overlapping sites of bladder (principal); C67.9 Malignant neoplasm of bladder, unspecified
CPT/HCPCS: 36415; 80053; 83735; 85025

== ENCOUNTER → 2020-09-27 06:58 | Outpatient (CLI) | payer MEDICARE, OTHER, SELFPAY ==
[2020-06-15 19:34] VITALS: BMI 21.2
[2020-09-27 08:13] LABS: Add Manual Diff / Slide Review NO; Basophils Absolute Auto 100 /uL (0-100); Basophils Percent Auto 1.4 % (0-2); Eosinophils Absolute Auto 0 /uL (0-450); Eosinophils Percent Auto 0.9 % (2-4); Hematocrit 35.1 % (41-53); Lymphocytes Absolute Auto 500 /uL (1100-4500); Lymphocytes Percent Auto 10.6 % (25-40); Mean Corpuscular HGB Conc 34.1 % (30-36); Mean Corpuscular Hemoglobin 28.7 PG (26-34); Mean Corpuscular Volume 84.4 fL (80-100); Monocytes Absolute Auto 800 /uL (0-900); Monocytes Percent Auto 19.6 % (3-14); Neutrophils Absolute Auto 2900 /uL (1500-7000); Neutrophils Percent Auto 67.5 % (50-75); Platelet Count 355 X10^3/uL (150-400); Red Blood Cell Count 4.16 X10^6/uL (4.5-5.9); Red Cell Distribution Width 19.2 % (11.6-14.8); White Blood Cell Count 4.3 X10^3/uL (4.5-11.0)
[2020-09-27 08:31] LABS: Alanine Aminotransferase 16 IU/L (<50); Albumin 3.9 g/dL (3.5-5.0); Albumin Globulin Ratio 1.4 (1.0-2.8); Alkaline Phosphatase 89 U/L (38-126); Aspartate Aminotransferase 33 IU/L (17-59); BUN Creatinine Ratio 19.7 (6-22); Bilirubin Total 0.5 mg/dL (0.2-1.3); Blood Urea Nitrogen 29 mg/dL (9-20); Calcium 10.2 mg/dL (8.4-10.2); Carbon Dioxide 27 mmol/L (22-32); Chloride 102 mmol/L (98-107); Estimated Glomerular Filt Rate 45.7 mL/min (>60); Globulin 2.7 g/dL (1.7-4.1); Glucose 90 mg/dL (80-110); HEMOLYSIS < 15 (0-50); Sodium 135 mmol/L (137-145); Total Protein 6.6 g/dL (6.3-8.2)
[2020-09-27 08:55] LABS: Potassium 5.2 mmol/L (3.4-5.1)
== END ==
PROVIDERS: Family Provider Internal Medicine; PCP Internal Medicine; Referring Provider Student in an Organized Health Care Education/Training Program; Visit Provider Student in an Organized Health Care Education/Training Program
DX: C67.8 Malignant neoplasm of overlapping sites of bladder (principal)
CPT/HCPCS: 36415; 80053; 85025

== ENCOUNTER → 2020-10-04 07:02 | Outpatient (CLI) | payer MEDICARE, OTHER, SELFPAY ==
[2020-06-15 19:34] VITALS: BMI 21.2
[2020-10-04 08:06] LABS: Add Manual Diff / Slide Review NO; Basophils Absolute Auto 100 /uL (0-100); Basophils Percent Auto 0.9 % (0-2); Eosinophils Absolute Auto 100 /uL (0-450); Eosinophils Percent Auto 1.8 % (2-4); Lymphocytes Absolute Auto 500 /uL (1100-4500); Lymphocytes Percent Auto 7.4 % (25-40); Mean Corpuscular HGB Conc 33.5 % (30-36); Mean Corpuscular Hemoglobin 28.4 PG (26-34); Monocytes Absolute Auto 700 /uL (0-900); Monocytes Percent Auto 10.5 % (3-14); Neutrophils Absolute Auto 5100 /uL (1500-7000); Neutrophils Percent Auto 79.4 % (50-75); Platelet Count 290 X10^3/uL (150-400); Red Blood Cell Count 4.23 X10^6/uL (4.5-5.9); Red Cell Distribution Width 19.3 % (11.6-14.8); White Blood Cell Count 6.4 X10^3/uL (4.5-11.0)
[2020-10-04 08:31] LABS: Alanine Aminotransferase 16 IU/L (<50); Albumin 3.7 g/dL (3.5-5.0); Albumin Globulin Ratio 1.4 (1.0-2.8); Alkaline Phosphatase 94 U/L (38-126); Aspartate Aminotransferase 33 IU/L (17-59); BUN Creatinine Ratio 18.3 (6-22); Bilirubin Total 0.4 mg/dL (0.2-1.3); Blood Urea Nitrogen 28 mg/dL (9-20); Calcium 10.1 mg/dL (8.4-10.2); Carbon Dioxide 28 mmol/L (22-32); Chloride 102 mmol/L (98-107); Estimated Glomerular Filt Rate 43.7 mL/min (>60); Globulin 2.7 g/dL (1.7-4.1); Glucose 99 mg/dL (80-110); HEMOLYSIS < 15 (0-50); Sodium 137 mmol/L (137-145); Total Protein 6.4 g/dL (6.3-8.2)
== END ==
PROVIDERS: Family Provider Internal Medicine; PCP Internal Medicine; Referring Provider Student in an Organized Health Care Education/Training Program; Visit Provider Student in an Organized Health Care Education/Training Program
DX: C67.8 Malignant neoplasm of overlapping sites of bladder (principal)
CPT/HCPCS: 36415; 80053; 85025

== ENCOUNTER → 2020-10-05 07:08 | Outpatient (CLI) | payer MEDICARE, OTHER, SELFPAY ==
[2020-06-15 19:34] VITALS: BMI 21.2
[2020-10-05 08:55] LABS: Appearance Urine UA CLOUDY; Bilirubin Urine UA NEGATIVE (NEGATIVE); Color Urine UA YELLOW; Glucose Urine UA NEGATIVE (Negative); Ketones Urine UA NEGATIVE (NEGATIVE); Leukocyte Esterase Urine UA 3+ (NEGATIVE); Nitrite Urine UA POSITIVE (Negative); Occult Blood Urine UA 3+ (Negative); Protein Urine UA 2+ (Negative); Urobilinogen Urine UA 0.2 E.U./dL (0.2)
[2020-10-05 09:13] LABS: Bacteria Urine Many (>30); Culture Indicated Urine Specimen Cultured; RBC Urine >100/HPF (0-5/HPF); WBC Urine >100/HPF (0-5/HPF)
== END ==
PROVIDERS: Family Provider Internal Medicine; PCP Internal Medicine; Referring Provider Urology; Visit Provider Urology
DX: R33.9 Retention of urine, unspecified (principal)
CPT/HCPCS: 81001; 87077; 87086; 87186

== ENCOUNTER → 2020-10-18 07:09 | Outpatient (CLI) | payer MEDICARE, OTHER, SELFPAY ==
[2020-06-15 19:34] VITALS: BMI 21.2
[2020-10-18 08:50] LABS: Add Manual Diff / Slide Review NO; Basophils Absolute Auto 100 /uL (0-100); Basophils Percent Auto 1.7 % (0-2); Eosinophils Absolute Auto 100 /uL (0-450); Eosinophils Percent Auto 2.4 % (2-4); Hematocrit 33.3 % (41-53); Hemoglobin 11.3 g/dL (13.5-17.5); Lymphocytes Absolute Auto 400 /uL (1100-4500); Lymphocytes Percent Auto 12.2 % (25-40); Mean Corpuscular Volume 85.3 fL (80-100); Monocytes Absolute Auto 700 /uL (0-900); Monocytes Percent Auto 20.2 % (3-14); Neutrophils Absolute Auto 2100 /uL (1500-7000); Neutrophils Percent Auto 63.5 % (50-75); Platelet Count 354 X10^3/uL (150-400); Red Cell Distribution Width 20.1 % (11.6-14.8); White Blood Cell Count 3.3 X10^3/uL (4.5-11.0)
[2020-10-18 09:01] LABS: Alanine Aminotransferase 19 IU/L (<50); Albumin 3.9 g/dL (3.5-5.0); Albumin Globulin Ratio 1.3 (1.0-2.8); Alkaline Phosphatase 92 U/L (38-126); Aspartate Aminotransferase 33 IU/L (17-59); BUN Creatinine Ratio 22.4 (6-22); Bilirubin Total 0.5 mg/dL (0.2-1.3); Blood Urea Nitrogen 32 mg/dL (9-20); Calcium 9.6 mg/dL (8.4-10.2); Carbon Dioxide 29 mmol/L (22-32); Chloride 103 mmol/L (98-107); Estimated Glomerular Filt Rate 47.2 mL/min (>60); Globulin 2.9 g/dL (1.7-4.1); Glucose 95 mg/dL (80-110); HEMOLYSIS < 15 (0-50); Potassium 4.6 mmol/L (3.4-5.1); Sodium 137 mmol/L (137-145); Total Protein 6.8 g/dL (6.3-8.2)
[2020-10-18 09:11] LABS: Anisocytosis 1+
[2020-10-19 23:48] LABS: Zinc 57 ug/dL (44-115)
== END ==
PROVIDERS: Family Provider Internal Medicine; PCP Internal Medicine; Referring Provider Student in an Organized Health Care Education/Training Program; Visit Provider Student in an Organized Health Care Education/Training Program
DX: R63.3 Feeding difficulties (principal); C67.8 Malignant neoplasm of overlapping sites of bladder
CPT/HCPCS: 36415; 80053; 84630; 85025

== ENCOUNTER → 2020-10-24 10:47 | Outpatient (CLI) | payer MEDICARE, OTHER, SELFPAY ==
[2020-06-15 19:34] VITALS: BMI 21.2
[2020-10-24 11:16] LABS: Add Manual Diff / Slide Review NO; Basophils Absolute Auto 0 /uL (0-100); Basophils Percent Auto 1.2 % (0-2); Eosinophils Absolute Auto 0 /uL (0-450); Hematocrit 35.1 % (41-53); Hemoglobin 11.9 g/dL (13.5-17.5); Lymphocytes Absolute Auto 400 /uL (1100-4500); Lymphocytes Percent Auto 9.7 % (25-40); Mean Corpuscular Hemoglobin 29.1 PG (26-34); Mean Corpuscular Volume 85.6 fL (80-100); Monocytes Absolute Auto 600 /uL (0-900); Monocytes Percent Auto 16.6 % (3-14); Neutrophils Absolute Auto 2800 /uL (1500-7000); Neutrophils Percent Auto 71.5 % (50-75); Platelet Count 331 X10^3/uL (150-400); Red Cell Distribution Width 19.7 % (11.6-14.8); White Blood Cell Count 3.9 X10^3/uL (4.5-11.0)
[2020-10-24 11:26] LABS: Alanine Aminotransferase 18 IU/L (<50); Albumin 3.9 g/dL (3.5-5.0); Albumin Globulin Ratio 1.4 (1.0-2.8); Alkaline Phosphatase 82 U/L (38-126); Aspartate Aminotransferase 33 IU/L (17-59); BUN Creatinine Ratio 17.9 (6-22); Bilirubin Total 0.5 mg/dL (0.2-1.3); Blood Urea Nitrogen 27 mg/dL (9-20); Calcium 9.8 mg/dL (8.4-10.2); Carbon Dioxide 27 mmol/L (22-32); Chloride 100 mmol/L (98-107); Estimated Glomerular Filt Rate 44.4 mL/min (>60); Globulin 2.8 g/dL (1.7-4.1); Glucose 132 mg/dL (80-110); HEMOLYSIS < 15 (0-50); Potassium 4.4 mmol/L (3.4-5.1); Sodium 135 mmol/L (137-145); Total Protein 6.7 g/dL (6.3-8.2)
== END ==
PROVIDERS: Family Provider Internal Medicine; PCP Internal Medicine; Referring Provider Student in an Organized Health Care Education/Training Program; Visit Provider Student in an Organized Health Care Education/Training Program
DX: C67.8 Malignant neoplasm of overlapping sites of bladder (principal)
CPT/HCPCS: 36415; 80053; 85025

== ENCOUNTER → 2020-11-01 07:08 | Outpatient (CLI) | payer MEDICARE, OTHER, SELFPAY ==
[2020-06-15 19:34] VITALS: BMI 21.2
[2020-11-01 08:34] LABS: Add Manual Diff / Slide Review NO; Basophils Absolute Auto 100 /uL (0-100); Basophils Percent Auto 1.2 % (0-2); Eosinophils Absolute Auto 100 /uL (0-450); Hematocrit 34.7 % (41-53); Hemoglobin 11.7 g/dL (13.5-17.5); Lymphocytes Absolute Auto 400 /uL (1100-4500); Lymphocytes Percent Auto 6.1 % (25-40); Mean Corpuscular HGB Conc 33.7 % (30-36); Mean Corpuscular Hemoglobin 29.1 PG (26-34); Mean Corpuscular Volume 86.2 fL (80-100); Monocytes Absolute Auto 800 /uL (0-900); Monocytes Percent Auto 11.2 % (3-14); Neutrophils Absolute Auto 5400 /uL (1500-7000); Neutrophils Percent Auto 79.5 % (50-75); Platelet Count 294 X10^3/uL (150-400); Red Blood Cell Count 4.02 X10^6/uL (4.5-5.9); Red Cell Distribution Width 19.3 % (11.6-14.8); White Blood Cell Count 6.8 X10^3/uL (4.5-11.0)
[2020-11-01 08:47] LABS: Alanine Aminotransferase 16 IU/L (<50); Albumin 3.8 g/dL (3.5-5.0); Albumin Globulin Ratio 1.3 (1.0-2.8); Alkaline Phosphatase 89 U/L (38-126); Aspartate Aminotransferase 35 IU/L (17-59); BUN Creatinine Ratio 19.9 (6-22); Bilirubin Total 0.6 mg/dL (0.2-1.3); Blood Urea Nitrogen 28 mg/dL (9-20); Calcium 10.1 mg/dL (8.4-10.2); Carbon Dioxide 30 mmol/L (22-32); Chloride 103 mmol/L (98-107); Globulin 2.9 g/dL (1.7-4.1); Glucose 97 mg/dL (80-110); HEMOLYSIS < 15 (0-50); Potassium 5.1 mmol/L (3.4-5.1); Sodium 138 mmol/L (137-145); Total Protein 6.7 g/dL (6.3-8.2)
== END ==
PROVIDERS: Family Provider Internal Medicine; PCP Internal Medicine; Referring Provider Student in an Organized Health Care Education/Training Program; Visit Provider Student in an Organized Health Care Education/Training Program
DX: C67.8 Malignant neoplasm of overlapping sites of bladder (principal)
CPT/HCPCS: 36415; 80053; 85025

== ENCOUNTER → 2020-11-22 13:52 | Outpatient (CLI) | payer MEDICARE, OTHER, SELFPAY ==
[2020-06-15 19:34] VITALS: BMI 21.2
[2020-11-22 14:50] LABS: Alanine Aminotransferase 14 IU/L (<50); Albumin 3.6 g/dL (3.5-5.0); Albumin Globulin Ratio 1.4 (1.0-2.8); Alkaline Phosphatase 76 U/L (38-126); Aspartate Aminotransferase 26 IU/L (17-59); BUN Creatinine Ratio 22.7 (6-22); Bilirubin Total 0.4 mg/dL (0.2-1.3); Blood Urea Nitrogen 32 mg/dL (9-20); Calcium 9.5 mg/dL (8.4-10.2); Carbon Dioxide 27 mmol/L (22-32); Chloride 103 mmol/L (98-107); Globulin 2.6 g/dL (1.7-4.1); Glucose 92 mg/dL (80-110); HEMOLYSIS < 15 (0-50); Potassium 4.7 mmol/L (3.4-5.1); Sodium 136 mmol/L (137-145); Total Protein 6.2 g/dL (6.3-8.2)
[2020-11-22 18:49] LABS: Add Manual Diff / Slide Review NO; Basophils Absolute Auto 100 /uL (0-100); Basophils Percent Auto 1.2 % (0-2); Eosinophils Absolute Auto 0 /uL (0-450); Eosinophils Percent Auto 0.9 % (2-4); Hematocrit 32.7 % (41-53); Lymphocytes Absolute Auto 500 /uL (1100-4500); Lymphocytes Percent Auto 10.2 % (25-40); Mean Corpuscular HGB Conc 33.5 % (30-36); Mean Corpuscular Hemoglobin 29.8 PG (26-34); Mean Corpuscular Volume 88.8 fL (80-100); Monocytes Absolute Auto 800 /uL (0-900); Monocytes Percent Auto 17.2 % (3-14); Neutrophils Absolute Auto 3300 /uL (1500-7000); Neutrophils Percent Auto 70.5 % (50-75); Platelet Count 339 X10^3/uL (150-400); Red Blood Cell Count 3.68 X10^6/uL (4.5-5.9); Red Cell Distribution Width 19.9 % (11.6-14.8); White Blood Cell Count 4.6 X10^3/uL (4.5-11.0)
== END ==
PROVIDERS: Family Provider Internal Medicine; PCP Internal Medicine; Referring Provider Student in an Organized Health Care Education/Training Program; Visit Provider Student in an Organized Health Care Education/Training Program
DX: C67.8 Malignant neoplasm of overlapping sites of bladder (principal)
CPT/HCPCS: 36415; 80053; 85025

== ENCOUNTER → 2020-11-29 10:10 | Outpatient (CLI) | payer MEDICARE, OTHER, SELFPAY ==
[2020-06-15 19:34] VITALS: BMI 21.2
[2020-11-29 10:45] LABS: Add Manual Diff / Slide Review NO; Basophils Absolute Auto 100 /uL (0-100); Eosinophils Absolute Auto 100 /uL (0-450); Eosinophils Percent Auto 1.1 % (2-4); Hematocrit 36.1 % (41-53); Lymphocytes Absolute Auto 400 /uL (1100-4500); Lymphocytes Percent Auto 5.1 % (25-40); Mean Corpuscular HGB Conc 33.3 % (30-36); Mean Corpuscular Hemoglobin 29.9 PG (26-34); Mean Corpuscular Volume 89.9 fL (80-100); Monocytes Absolute Auto 600 /uL (0-900); Monocytes Percent Auto 8.2 % (3-14); Neutrophils Absolute Auto 6100 /uL (1500-7000); Neutrophils Percent Auto 84.6 % (50-75); Platelet Count 301 X10^3/uL (150-400); Red Blood Cell Count 4.02 X10^6/uL (4.5-5.9); Red Cell Distribution Width 19.7 % (11.6-14.8); White Blood Cell Count 7.3 X10^3/uL (4.5-11.0)
[2020-11-29 10:56] LABS: Alanine Aminotransferase 16 IU/L (<50); Albumin 3.7 g/dL (3.5-5.0); Albumin Globulin Ratio 1.3 (1.0-2.8); Alkaline Phosphatase 81 U/L (38-126); Aspartate Aminotransferase 32 IU/L (17-59); BUN Creatinine Ratio 23.4 (6-22); Bilirubin Total 0.6 mg/dL (0.2-1.3); Blood Urea Nitrogen 33 mg/dL (9-20); Calcium 9.6 mg/dL (8.4-10.2); Carbon Dioxide 30 mmol/L (22-32); Chloride 101 mmol/L (98-107); Globulin 2.9 g/dL (1.7-4.1); Glucose 132 mg/dL (80-110); HEMOLYSIS < 15 (0-50); Potassium 4.4 mmol/L (3.4-5.1); Sodium 137 mmol/L (137-145); Total Protein 6.6 g/dL (6.3-8.2)
== END ==
PROVIDERS: Family Provider Internal Medicine; PCP Internal Medicine; Referring Provider Student in an Organized Health Care Education/Training Program; Visit Provider Student in an Organized Health Care Education/Training Program
DX: C67.8 Malignant neoplasm of overlapping sites of bladder (principal); I10 Essential (primary) hypertension
CPT/HCPCS: 36415; 80053; 85025

== ENCOUNTER → 2020-12-06 08:53 | Outpatient (CLI) | payer MEDICARE, OTHER, SELFPAY ==
[2020-06-15 19:34] VITALS: BMI 21.2
[2020-12-06 10:28] LABS: Add Manual Diff / Slide Review NO; Basophils Absolute Auto 0 /uL (0-100); Basophils Percent Auto 0.8 % (0-2); Eosinophils Absolute Auto 300 /uL (0-450); Eosinophils Percent Auto 4.8 % (2-4); Hematocrit 34.5 % (41-53); Hemoglobin 11.7 g/dL (13.5-17.5); Lymphocytes Absolute Auto 400 /uL (1100-4500); Mean Corpuscular Hemoglobin 30.3 PG (26-34); Monocytes Absolute Auto 700 /uL (0-900); Monocytes Percent Auto 11.6 % (3-14); Neutrophils Absolute Auto 4600 /uL (1500-7000); Neutrophils Percent Auto 75.8 % (50-75); Platelet Count 272 X10^3/uL (150-400); Red Blood Cell Count 3.87 X10^6/uL (4.5-5.9); Red Cell Distribution Width 19.3 % (11.6-14.8); White Blood Cell Count 6.1 X10^3/uL (4.5-11.0)
[2020-12-06 10:47] LABS: Alanine Aminotransferase 18 IU/L (<50); Albumin 3.8 g/dL (3.5-5.0); Albumin Globulin Ratio 1.4 (1.0-2.8); Alkaline Phosphatase 82 U/L (38-126); Aspartate Aminotransferase 37 IU/L (17-59); BUN Creatinine Ratio 18.5 (6-22); Bilirubin Total 0.5 mg/dL (0.2-1.3); Blood Urea Nitrogen 28 mg/dL (9-20); Calcium 9.8 mg/dL (8.4-10.2); Carbon Dioxide 30 mmol/L (22-32); Chloride 101 mmol/L (98-107); Estimated Glomerular Filt Rate 44.4 mL/min (>60); Globulin 2.8 g/dL (1.7-4.1); Glucose 94 mg/dL (80-110); HEMOLYSIS < 15 (0-50); Potassium 4.6 mmol/L (3.4-5.1); Sodium 137 mmol/L (137-145); Total Protein 6.6 g/dL (6.3-8.2)
== END ==
PROVIDERS: Family Provider Internal Medicine; PCP Internal Medicine; Referring Provider Student in an Organized Health Care Education/Training Program; Visit Provider Student in an Organized Health Care Education/Training Program
DX: C67.8 Malignant neoplasm of overlapping sites of bladder (principal); I10 Essential (primary) hypertension
CPT/HCPCS: 36415; 80053; 85025

== ENCOUNTER → 2020-12-20 07:57 | Outpatient (CLI) | payer MEDICARE, OTHER, SELFPAY ==
[2020-06-15 19:34] VITALS: BMI 21.2
[2020-12-20 09:28] LABS: Alanine Aminotransferase 18 IU/L (<50); Albumin Globulin Ratio 1.3 (1.0-2.8); Alkaline Phosphatase 87 U/L (38-126); Aspartate Aminotransferase 35 IU/L (17-59); BUN Creatinine Ratio 22.1 (6-22); Bilirubin Total 0.5 mg/dL (0.2-1.3); Blood Urea Nitrogen 30 mg/dL (9-20); Carbon Dioxide 32 mmol/L (22-32); Chloride 102 mmol/L (98-107); Glucose 99 mg/dL (80-110); HEMOLYSIS < 15 (0-50); Potassium 4.9 mmol/L (3.4-5.1); Sodium 139 mmol/L (137-145)
[2020-12-20 09:34] LABS: Add Manual Diff / Slide Review NO; Basophils Absolute Auto 0 /uL (0-100); Basophils Percent Auto 1.3 % (0-2); Eosinophils Absolute Auto 100 /uL (0-450); Eosinophils Percent Auto 2.5 % (2-4); Hematocrit 36.2 % (41-53); Hemoglobin 12.3 g/dL (13.5-17.5); Lymphocytes Absolute Auto 400 /uL (1100-4500); Lymphocytes Percent Auto 12.7 % (25-40); Mean Corpuscular HGB Conc 33.9 % (30-36); Mean Corpuscular Hemoglobin 30.5 PG (26-34); Mean Corpuscular Volume 89.9 fL (80-100); Monocytes Absolute Auto 600 /uL (0-900); Monocytes Percent Auto 19.1 % (3-14); Neutrophils Absolute Auto 2100 /uL (1500-7000); Neutrophils Percent Auto 64.4 % (50-75); Platelet Count 315 X10^3/uL (150-400); Red Blood Cell Count 4.02 X10^6/uL (4.5-5.9); Red Cell Distribution Width 19.4 % (11.6-14.8); White Blood Cell Count 3.3 X10^3/uL (4.5-11.0)
== END ==
PROVIDERS: Family Provider Internal Medicine; PCP Internal Medicine; Referring Provider Student in an Organized Health Care Education/Training Program; Visit Provider Student in an Organized Health Care Education/Training Program
DX: C67.8 Malignant neoplasm of overlapping sites of bladder (principal)
CPT/HCPCS: 36415; 80053; 85025

== ENCOUNTER → 2020-12-22 09:28 | Outpatient (CLI) | payer MEDICARE, OTHER, SELFPAY ==
[2020-06-15 19:34] VITALS: BMI 21.2
[2020-12-22 10:34] LABS: COVID19 -Nasal RAPID Negative (Negative)
== END ==
PROVIDERS: Family Provider Internal Medicine; PCP Internal Medicine; Referring Provider Internal Medicine; Visit Provider Internal Medicine
DX: Z20.822 Contact with and (suspected) exposure to COVID-19 (principal)
CPT/HCPCS: 87635; C9803

== ENCOUNTER → 2020-12-23 08:59 | Outpatient (CLI) | payer MEDICARE, OTHER, SELFPAY ==
[2020-06-15 19:34] VITALS: BMI 21.2
--- NOTE | 2020-12-28 09:14 | PM.PFT.1 ---
Pulmonary Function Test Referral & Results Date Patient Seen: 12/23/20 Requesting provider: Humberto Cox Results: The spirometry demonstrates an FVC of 4.27 L which is 114% of predicted. The FEV1 was measured at 3.35 L which is 120% of predicted. The FEV1/FVC ratio was 78 which is 110% of predicted. The diffusing capacity was measured at 17.91 which is 57% of predicted. No hemoglobin value was provided, so no correction for potential anemia could be made, if appropriate. Interpretation: This study demonstrates normal spirometry but moderately reduced diffusing capacity suggesting disease at the capillary alveolar level Compared to PFTs performed in August 2020, current study is essentially unchanged
== END ==
PROVIDERS: Family Provider Internal Medicine; PCP Internal Medicine; Referring Provider Physician Assistant; Visit Provider Physician Assistant
DX: Z79.899 Other long term (current) drug therapy (principal); J98.8 Other specified respiratory disorders
CPT/HCPCS: 94010

== ENCOUNTER → 2021-03-06 14:42 | Outpatient (ROUT) | payer MEDICARE, OTHER, SELFPAY ==
[2020-06-15 19:34] VITALS: BMI 21.2
== END ==
PROVIDERS: Family Provider Internal Medicine; PCP Internal Medicine; Visit Provider Family Medicine
DX: C67.9 Malignant neoplasm of bladder, unspecified (principal)
CPT/HCPCS: 87077; 87086; 87186